=== PATIENT | male | born 1950 | race Caucasian/White ===

== ENCOUNTER 2017-09-27 09:43 | Inpatient (IN) | payer MEDICARE ==
[2017-09-27] VITALS (7 sets, daily range): BP systolic 102–153; BP diastolic 57–78; PULSE 64–98; RESP 16–20; TEMP 97.2–98.9; O2SAT 98–100
[~2017-09-27] VITALS: Ht 180.3 cm; Wt 96.2 kg
[2017-09-27] MEDS ORDERED: ENAL5TAB PO (10:15)
[2017-09-27] MEDS ORDERED: METF500T PO (10:15)
[2017-09-27] MEDS ORDERED: EXEN1INJ SQ (10:15)
[2017-09-27] MEDS ORDERED: CYMB30CA PO (10:15)
[2017-09-27] MEDS ORDERED: GABA600T PO (10:15)
[2017-09-27] MEDS ORDERED: ROSU1TAB4 PO (10:15)
[2017-09-27] MEDS ORDERED: ARTHRITIS MEDICATION (10:19)
[2017-09-27] MEDS ORDERED: CLIN300C5 PO (10:21)
[2017-09-27] MEDS ORDERED: CLINDAMYCIN INJ 900 MG in SODIUM CHLORIDE 0.9% INJ 100 ML IV ONE (11:15)
[2017-09-27] MEDS ORDERED: KETOROLAC TROMETHAMINE 30 MG/ML (IVP) VIAL IVP ONE (11:15)
--- NOTE | 2017-09-27 11:16 | PD ---
HPI Chief Complaint: Skin Problem Time Seen by Provider: 10:49 Travel History International Travel<30 days: No Contact w/Intl Traveler<30days: No Traveled to known affect area: No History of Present Illness HPI 67yo M with a significant past medical history of diabetes mellitus and neuropathy presents the ED with L greater toe wound and L foot wound. Pt states that about 2yrs prior he stepped on a nail. He went to his pipe roller, Dr. Colvin, who tried to treat it conservatively over time, but referred him to Dr. Lemon for further management. Dr. Lemon, diagnosed him with a hammer toe and treated it accordingly. Within the last two weeks the wound developed an infection and prescribed him Levaquin along with an open cast. He stopped using the Levaquin after several days of use due to adverse effects, such as headaches , nausea and fatigue. After stopping Levaquin, he started to have fevers (Tmax 102.6) and increasing swelling and erythema to his L foot. He called Dr. Lemon on Sunday for a new prescription but was told he would need to be seen before, so he went to his PCP who prescribed him Clindamycin and debrided some of the wound. He has been on Clindamycin for two days now, with some improvement of the wound and afebrile. However, his PCP instructed him to go to the ED for possible admission due to the severity of the infection. Currently, the pt reports tenderness of the LLE, lack of sensation and swelling. Denies any fevers , nausea, vomiting, fatigue, weakness, headaches. PFSH Past Medical History Arthritis: Yes High Cholesterol: Yes Diabetes: Yes Patient Takes Glucophage: Yes Hypertension: Yes Tetanus Vaccination: < 5 Years Influenza Vaccination: Yes Social History Alcohol Use: Yes (rare) Tobacco Use: No Substance Use: No Allergies-Medications (Allergen,Severity, Reaction): Coded Allergies: iodine (Verified Allergy, Intermediate, 09/27/17) got real sick levofloxacin (Verified Allergy, Intermediate, 09/27/17) severe headaches and fatigue with slight nausea sulfite (Verified Allergy, Intermediate, 09/27/17) nausea Reported Meds & Prescriptions Reported Meds & Active Scripts Active Reported Clindamycin (Clindamycin HCl) 300 Mg Cap 300 Mg PO Q6H [Arthritis Medication] Rosuvastatin (Rosuvastatin Calcium) 5 Mg Tab 5 Mg PO EVERY OTHER DAY Cymbalta DR (Duloxetine HCl) 30 Mg Capdr 30 Mg PO BID Gabapentin 600 Mg Tab 600 Mg PO TID Enalapril (Enalapril Maleate) 5 Mg Tab 5 Mg PO DAILY Metformin (Metformin HCl) 500 Mg Tab 500 Mg PO BIDPC Bydureon Pen Inj (Exenatide) 2 Mg Pfpen 2 Mg SQ Q7D Physical Exam Narrative GENERAL: well developed and well nourished male in no acute distress. Alert and oriented x3. SKIN: Warm and dry. HEAD: Atraumatic. Normocephalic. EYES: Pupils equal and round. No scleral icterus. No injection or drainage. ENT: No nasal bleeding or discharge. Mucous membranes pink and moist. NECK: Trachea midline. No JVD. CARDIOVASCULAR: Regular rate and rhythm. RESPIRATORY: No accessory muscle use. Clear to auscultation. Breath sounds equal bilaterally. MUSCULOSKELETAL: Extremities without clubbing, cyanosis, or edema. No obvious deformities. NEUROLOGICAL: Awake and alert. No obvious cranial nerve deficits. Motor grossly within normal limits. Five out of 5 muscle strength in the arms and legs. Normal speech. PSYCHIATRIC: Appropriate mood and affect; insight and judgment normal. EXTREMITIES: Grossly deformed left lower greater digit with a full thickness ulcer, with surrounding erythema that extends to middle of his foot. Warm to touch to his ankle. Pedal pulses palpable bilaterally. Sensation decreased bilaterally to his knees. Data Data Last Documented VS Vital Signs Date Time Temp Pulse Resp B/P (MAP) Pulse Ox O2 Delivery O2 Flow Rate FiO2 09/27/17 12:37 73 18 102/57 (72) 100 Room Air 09/27/17 10:27 98.3 Orders Orders Basic Metabolic Panel (Bmp) (09/27/17 11:12) Complete Blood Count With Diff (09/27/17 11:12) Blood Culture (09/27/17 11:12) Wound Culture And Gram Stain (09/27/17 11:12) Iv Access Insert/Monitor (09/27/17 11:12) Ketorolac Inj (Toradol Inj) (09/27/17 11:15) Clindamycin Inj (Cleocin Inj) (09/27/17 11:15) Toe (Min 2vws) (09/27/17 11:12) Admit To Inpatient (5/17/18 ) Vital Signs (Adult) Q4H (09/27/17 13:27) Activity Oob Ad Maria Elena (09/27/17 13:27) Diet 1800 Ada Cons Carb (09/27/17 Lunch) Sodium Chloride 0.9% Flush (Ns Flush) (09/27/17 21:00) Sodium Chloride 0.9% Flush (Ns Flush) (09/27/17 13:30) Vancomycin Consult Pharmacy (Vancomycin (09/27/17 13:30) Acetaminophen (Tylenol) (09/27/17 13:30) Acetamin-Hydrocod 325-5 Mg (Henderson 5-325 (09/27/17 13:30) Acetamin-Hydrocod 325-7.5 Mg (Henderson 7.5 (09/27/17 13:30) Basic Metabolic Panel (Bmp) (09/28/17 06:00) Consult Infectious Disease (09/27/17 ) Vancomycin Inj (Vancomycin Inj) (09/27/17 15:00) Enoxaparin Inj (Lovenox Inj) (09/27/17 13:30) Inpatient Certification (09/27/17 ) Bedside Glucose WISAM.CSUGAR (09/27/17 13:27) Blood Glucose Goal (Criteria) (09/27/17 13:27) Hypoglycemia 70 Mg/Dl Or < (09/27/17 13:27) Notify Dr: Other (09/27/17 13:27) Dextrose 50% In Hector (Vial) Inj (D50w (Vi (09/27/17 13:30) Glucagon Inj (Glucagon Inj) (09/27/17 13:30) Insulin Aspart Supplemtl Scale (Novolog (09/27/17 17:00) Consult Podiatry (09/27/17 ) Clindamycin Inj (Cleocin Inj) (09/27/17 21:00) Magnesium Hydroxide Liq (Milk Of Magnesi (09/27/17 13:45) Sennosides (Senokot) (09/27/17 13:45) Bisacodyl Supp (Dulcolax Supp) (09/27/17 13:45) Lactulose Liq (Lactulose Liq) (09/27/17 13:45) Admit Order (Ed Use Only) (09/27/17 14:03) Labs Laboratory Tests Test 09/27/17 11:25 White Blood Count 9.1 TH/MM3 Red Blood Count 3.90 MIL/MM3 Hemoglobin 11.4 GM/DL Hematocrit 33.7 % Mean Corpuscular Volume 86.3 FL Mean Corpuscular Hemoglobin 29.1 PG Mean Corpuscular Hemoglobin Concent 33.7 % Red Cell Distribution Width 15.0 % Platelet Count 293 TH/MM3 Mean Platelet Volume 8.8 FL Neutrophils (%) (Auto) 78.8 % Lymphocytes (%) (Auto) 11.4 % Monocytes (%) (Auto) 6.3 % Eosinophils (%) (Auto) 3.1 % Basophils (%) (Auto) 0.4 % Neutrophils # (Auto) 7.2 TH/MM3 Lymphocytes # (Auto) 1.0 TH/MM3 Monocytes # (Auto) 0.6 TH/MM3 Eosinophils # (Auto) 0.3 TH/MM3 Basophils # (Auto) 0.0 TH/MM3 CBC Comment DIFF FINAL Differential Comment Blood Urea Nitrogen 11 MG/DL Creatinine 0.72 MG/DL Random Glucose 186 MG/DL Calcium Level 8.4 MG/DL Sodium Level 136 MEQ/L Potassium Level 3.5 MEQ/L Chloride Level 97 MEQ/L Carbon Dioxide Level 26.5 MEQ/L Anion Gap 13 MEQ/L Estimat Glomerular Filtration Rate 110 ML/MIN [facility] Medical Decision Making Medical Screen Exam Complete: Yes Emergency Medical Condition: Yes David Sales MD September 27, 2017 11:16
--- NOTE | 2017-09-27 12:11 | RADRPT ---
EXAM DATE/TIME: 09/27/2017 11:47 [facility] COMPARISON: No previous studies available for comparison. INDICATIONS : Infection. Open ulcer left great toe after foot being in soft boot for hammer toe. MEDICAL HISTORY : Diabetes mellitus type II. Neuropathy. Pt. in soft boot for 5 weeks for hammer toe. SURGICAL HISTORY : Debridement left great toe. ENCOUNTER: Initial ACUITY: 4 - 6 days PAIN SCORE: 0/10 LOCATION: Left great toe. FINDINGS: There is a destructive lytic lesion involving the first distal phalanx with a large subcutaneous ulce r adjacent to it. The lytic lesion extends for approximately 1.1 cm on a sporadic calcifications with in the ulceration as well. CONCLUSION: Findings are characteristic of osteomyelitis first distal phalanx. Doe Fernandes MD on September 27, 2017 at 12:07 Board Certified Radiologist. This report was verified electronically.
[2017-09-27 12:13] LABS: AUTOMATED NEUTROPHIL # 7.2 TH/MM3 (1.8-7.7); BASOPHIL % 0.4 % (0.0-2.0); EOSINOPHIL # 0.3 TH/MM3 (0-0.4); EOSINOPHIL % 3.1 % (0.0-4.0); HEMATOCRIT 33.7 % (39.0-51.0); HEMOGLOBIN 11.4 GM/DL (13.0-17.0); LYMPH % 11.4 % (9.0-44.0); MEAN CELL VOLUME 86.3 FL (80.0-100.0); MEAN CORPUSCULAR HEMOGLOBIN 29.1 PG (27.0-34.0); MEAN CORPUSCULAR HGB CONC 33.7 % (32.0-36.0); MEAN PLATELET VOLUME 8.8 FL (7.0-11.0); MONO % 6.3 % (0.0-8.0); MONOCYTE # 0.6 TH/MM3 (0-0.9); NEUT % 78.8 % (16.0-70.0); PLATELET COUNT 293 TH/MM3 (150-450); WHITE BLOOD COUNT 9.1 TH/MM3 (4.0-11.0)
[2017-09-27 12:58] LABS: BICARBONATE 26.5 MEQ/L (21.0-32.0); CALCIUM 8.4 MG/DL (8.5-10.1); CREATININE 0.72 MG/DL (0.60-1.30)
[2017-09-27] MEDS ORDERED: Vancomycin Consult Pharmacy 1 EA OTHER SCH (13:30)
[2017-09-27] MEDS ORDERED: ACETAMINOPHEN 500 MG CPLT PO PRN (13:30)
[2017-09-27] MEDS ORDERED: ACETAMINOPHEN/HYDROcodone 325 MG/7.5 MG TAB PO PRN (13:30)
[2017-09-27] MEDS ORDERED: GLUCAGON 1 MG/ML VIAL OTHER PRN (13:30)
[2017-09-27] MEDS ORDERED: SODIUM CHLORIDE 0.9% FLUSH 10 ML FLUSH IV FLUSH PRN (13:30)
[2017-09-27] MEDS ORDERED: DEXTROSE 50% IN WATER 50 ML VIAL(D50) IV PUSH PRN (13:30)
[2017-09-27] MEDS ORDERED: SENNOSIDES 8.6 MG TAB PO PRN (13:45)
[2017-09-27] MEDS ORDERED: LACTULOSE SYRUP 20 GM/30 ML CUP PO PRN (13:45)
[2017-09-27] MEDS ORDERED: MAGNESIUM HYDROXIDE SUSP 30 ML CUP PO PRN (13:45)
[2017-09-27] MEDS ORDERED: BISACODYL 10 MG SUPP RECTAL PRN (13:45)
--- NOTE | 2017-09-27 14:38 | HHI.HP ---
[facility] Service [facility] Primary Care Physician Jesus Massey M.D. Admission Diagnosis left great toe osteomyelitis, diabetes mellitius Diagnoses: Chief Complaint: left toe swelling, redness, and drainage Travel History International Travel<30 Days: No Contact w/Intl Traveler <30 Da: No Traveled to Known Affected Are: No History of Present Illness 67 year old white mail with a history of type 2 diabetes mellitus with neuropathy, hypertension who presents to the emergency room with worsening left toe swelling redness along with some yellowish malodorous drainage over the past 48 hours despite seeing his primary care physician and having a debridement. He states that he first injured his left toe over 2 years ago in which he stepped on a nail and was seen by Dr. Colvin. At that point, his left toe wound was being managed by podiatry and a referral was given to Dr. Lemon. Dr. Lemno had debrided the area and 14 weeks ago had placed the left foot in an open cast and ordered special insoles for him. 2 weeks ago the left toe became red and swollen with it being infected with further debridement needed. He was placed on Levaquin last however had side effects of headache nausea and fatigue and therefore stopped taking the medication. When he attempted to contact Dr. Lemon, he was requested to see him again prior to be given another oral antibiotics. He at that point went to see his primary care physician Dr. Massey however had one of his partners Dr. Dumont saw him and he was given oral clindamycin and a IM injection of an antibiotic. When he had continued drainage fevers and chills he came into the emergency room today for further evaluation. He denies any other trauma to the area. Review of Systems Constitutional: COMPLAINS OF: Fatigue, Fever, Chills, DENIES: Change in appetite Endocrine: DENIES: Heat/cold intolerance Eyes: DENIES: Blurred vision, Eye pain, Vision loss Ears, nose, mouth, throat: DENIES: Hearing loss, Nasal discharge, Throat pain, Ear Pain, Sinus Pain Respiratory: DENIES: Cough, Shortness of breath Cardiovascular: DENIES: Chest pain, Palpitations, Dyspnea on Exertion, Lower Extremity Edema Gastrointestinal: COMPLAINS OF: Constipation (Chronic ), DENIES: Abdominal pain , Black stools, Bloody stools, Diarrhea, Nausea, Vomiting Musculoskeletal: DENIES: Joint pain, Muscle aches, Stiffness Integumentary: COMPLAINS OF: Rash Hematologic/lymphatic: DENIES: Bruising, Lymphadenopathy Immunologic/allergic: DENIES: Eczema Neurologic: DENIES: Headache, Localized weakness, Paresthesias Psychiatric: DENIES: Anxiety, Depression, Suicidal Ideation Drainage and redness and swelling as described in HPI of the left toe Past Family Social History Past Medical History Diabetes mellitus Hypertension Hyperlipidemia Past Surgical History Right knee arthroscopic surgery left wrist surgery for fracture Reported Medications Clindamycin (Clindamycin HCl) 300 Mg Cap 300 Mg PO Q6H Rosuvastatin (Rosuvastatin Calcium) 5 Mg Tab 5 Mg PO EVERY OTHER DAY Cymbalta DR (Duloxetine HCl) 30 Mg Capdr 30 Mg PO BID Gabapentin 600 Mg Tab 600 Mg PO TID Enalapril (Enalapril Maleate) 5 Mg Tab 5 Mg PO DAILY Metformin (Metformin HCl) 500 Mg Tab 500 Mg PO BIDPC Bydureon Pen Inj (Exenatide) 2 Mg Pfpen 2 Mg SQ Q7D Allergies: Coded Allergies: iodine (Verified Allergy, Intermediate, 09/27/17) got real sick levofloxacin (Verified Allergy, Intermediate, 09/27/17) severe headaches and fatigue with slight nausea sulfite (Verified Allergy, Intermediate, 09/27/17) nausea Family History Mother had diabetes Father in the 90s of pneumonia Social History Does not smoke cigarettes or drink alcohol Physical Exam Vital Signs Vital Signs Date Time Temp Pulse Resp B/P (MAP) Pulse Ox O2 Delivery O2 Flow Rate FiO2 09/27/17 12:37 73 18 102/57 (72) 100 Room Air 09/27/17 10:27 98.3 77 18 139/71 (93) 100 Room Air 09/27/17 10:19 18 09/27/17 09:52 98.9 83 16 153/74 (100) 99 Physical Exam GENERAL: This is a well-nourished, well-developed patient, in no apparent distress. SKIN: Left dorsum of the foot with erythema and swelling and induration. Left distal toe with open wound with debrided infected tissue with yellowish and red drainage HEAD: Atraumatic. Normocephalic. No temporal or scalp tenderness. EYES: Pupils equal round and reactive. Extraocular motions intact. No scleral icterus. No injection or drainage. ENT: Nose without bleeding, purulent drainage or septal hematoma. Throat without erythema, tonsillar hypertrophy or exudate. Uvula midline. Airway patent. NECK: Trachea midline. No JVD or lymphadenopathy. Supple, nontender, no meningeal signs. CARDIOVASCULAR: Regular rate and rhythm without murmurs, gallops, or rubs. 2+ peripheral pulses in the left lower and right lower extremity, DP pulses RESPIRATORY: Clear to auscultation. Breath sounds equal bilaterally. No wheezes , rales, or rhonchi. GASTROINTESTINAL: Abdomen soft, non-tender, nondistended. No hepato-splenomegaly , or palpable masses. No guarding. Normoactive bowel sounds MUSCULOSKELETAL: Left great toe with significant swelling and induration with distal open wound with debrided infected skin with yellowish and red drainage. There is area of induration over the great toe radiating up towards the dorsum of the foot to the mid tarsal area NEUROLOGICAL: Awake and alert to person place time and situation. Cranial nerves II through XII intact. Motor and sensory grossly within normal limits. Five out of 5 muscle strength in all muscle groups. Normal speech. Laboratory Laboratory Tests Test 09/27/17 11:25 White Blood Count 9.1 Red Blood Count 3.90 Hemoglobin 11.4 Hematocrit 33.7 Mean Corpuscular Volume 86.3 Mean Corpuscular Hemoglobin 29.1 Mean Corpuscular Hemoglobin Concent 33.7 Red Cell Distribution Width 15.0 Platelet Count 293 Mean Platelet Volume 8.8 Neutrophils (%) (Auto) 78.8 Lymphocytes (%) (Auto) 11.4 Monocytes (%) (Auto) 6.3 Eosinophils (%) (Auto) 3.1 Basophils (%) (Auto) 0.4 Neutrophils # (Auto) 7.2 Lymphocytes # (Auto) 1.0 Monocytes # (Auto) 0.6 Eosinophils # (Auto) 0.3 Basophils # (Auto) 0.0 CBC Comment DIFF FINAL Differential Comment Blood Urea Nitrogen 11 Creatinine 0.72 Random Glucose 186 Calcium Level 8.4 Sodium Level 136 Potassium Level 3.5 Chloride Level 97 Carbon Dioxide Level 26.5 Anion Gap 13 Estimat Glomerular Filtration Rate 110 Date/Time Source Procedure Growth Status 09/27/17 11:25 Blood Peripheral Aerobic Blood Culture Pending Received 09/27/17 11:25 Blood Peripheral Anaerobic Blood Culture Pending Received 09/27/17 11:30 Wound Toe Gram Stain Pending Received 09/27/17 11:30 Wound Toe Wound Culture Pending Received Result Diagram: 09/27/17 1125 09/27/17 1125 Imaging Last Impressions Toe X-Ray 09/27/17 1112 Signed Impressions: Service Date/Time: September 11:47 - CONCLUSION: Findings are characteristic of osteomyelitis first distal phalanx. KMD Ivonne Jara VTE Risk Assessment Ivonne VTE Risk Assessment: Mod/High Risk (score >= 2) Caprini Risk Assessment Model Point Value = 1 Point Value = 2 Point Value = 3 Point Value = 5 Age 41-60 Minor surgery BMI > 25 kg/m2 Swollen legs Varicose veins or History of unexplained or recurrent spontaneous Oral contraceptives or hormone replacement Sepsis (< 1 month) Serious lung disease, including pneumonia (< 1 month) Abnormal pulmonary function Acute myocardial infarction Congestive heart failure (< 1 month) History of inflammatory bowel disease Medical patient at bed rest Age 61-74 Arthroscopic surgery Major open surgery (> 45 min) Laparoscopic surgery (> 45 min) Malignancy Confined to bed (> 72 hours) Immobilizing plaster cast Central venous access Age >= 75 History of VTE Family history of VTE Factor V Leiden Prothrombin [id number] Lupus anticoagulant Anticardiolipin antibodies Elevated serum homocysteine Heparin-induced thrombocytopenia Other congenital or acquired thrombophilia Stroke (< 1 month) Elective arthroplasty Hip, pelvis, or leg fracture Acute spinal cord injury (< 1 month) Prophylaxis Regimen Total Risk Factor Score Risk Level Prophylaxis Regimen 0-1 Low Early ambulation 2 Moderate Order ONE of the following: *Sequential Compression Device (SCD) *Heparin 5000 units SQ BID 3-4 Higher Order ONE of the following medications: *Heparin 5000 units SQ TID *Enoxaparin/Lovenox 40 mg SQ daily (WT < 150 kg, CrCl > 30 mL/min) *Enoxaparin/Lovenox 30 mg SQ daily (WT < 150 kg, CrCl > 10-29 mL/min) *Enoxaparin/Lovenox 30 mg SQ BID (WT < 150 kg, CrCl > 30 mL/min) AND/OR *Sequential Compression Device (SCD) 5 or more Highest Order ONE of the following medications: *Heparin 5000 units SQ TID (Preferred with Epidurals) *Enoxaparin/Lovenox 40 mg SQ daily (WT < 150 kg, CrCl > 30 mL/min) *Enoxaparin/Lovenox 30 mg SQ daily (WT < 150 kg, CrCl > 10-29 mL/min) *Enoxaparin/Lovenox 30 mg SQ BID (WT < 150 kg, CrCl > 30 mL/min) AND *Sequential Compression Device (SCD) Assessment and Plan Assessment and Plan 1. Left great toe osteomyelitis with infected wound -continue with IV clindamycin and vancomycin, consult podiatry for further evaluation for surgical intervention. Consult infectious disease for further recommendations. Await final wound culture and blood cultures. Pain medication as needed. 2. Diabetic mellitus type II -continue with Accu-Cheks with sliding scale insulin 3. Diabetic neuropathy- continue with gabapentin 4. Chronic hypertension, essential continue with home antihypertensives. 5.DVT prophylaxis - Lovenox Physician Certification 2 Midnight Certification Type: Admission for Inpatient Services Order for Inpatient Services The services are ordered in accordance with Medicare regulations or non- Medicare payer requirements, as applicable. In the case of services not specified as inpatient-only, they are appropriately provided as inpatient services in accordance with the 2-midnight benchmark. Estimated LOS (days): 3 days is the estimated time the patient will need to remain in the hospital, assuming treatment plan goals are met and no additional complications. Post-Hospital Plan: Home Health Vaishali Jung MD September 27, 2017 14:38
[2017-09-27] MEDS: ENOXAPARIN SODIUM 40 MG/0.4 ML SYRINGE SQ SCH (14:45)
[2017-09-27] MEDS ORDERED: ENALAPRILAT 1.25 MG/ML VIAL IV PUSH PRN (14:45)
[2017-09-27] MEDS ORDERED: VANCOMYCIN INJ 1,000 MG in SODIUM CHLOR 0.9% 250 ML INJ 250 ML IV SCH (15:00)
[2017-09-27] MEDS: VANCOMYCIN INJ 1,500 MG in SODIUM CHLORID 0.9% 500 ML INJ 500 ML IV SCH (16:07)
[2017-09-27] MEDS: INSULIN ASPART SUPPLEMENTAL SCALE SQ SCH ×2 (17:00→21:00)
[2017-09-27] MEDS: GABAPENTIN 300 MG CAP PO SCH (17:34)
[2017-09-27] MEDS: metFORMIN HCL 500 MG TAB PO SCH (17:34)
[2017-09-27] MEDS: SODIUM CHLORIDE 0.9% FLUSH 10 ML FLUSH IV FLUSH SCH (20:31)
[2017-09-27] MEDS: CLINDAMYCIN 600 MG/NS PREMIX 50 ML IV SCH (20:31)
--- NOTE | 2017-09-27 21:22 | MB ---
cc: Qamar Delgado DPM DATE: 09/27/2017 REASON FOR CONSULTATION: Left hallux ulcer, osteomyelitis. HISTORY OF PRESENT ILLNESS: This is a 67-year-old male who has a history of seeing my associate, Dr. Colvin. It apparently started after he stepped on a nail. There were issues healing the wound. The patient was then referred to Dr. Alli Lemon, who has been debriding the area and applying a total contact cast for the greater part of 14 weeks. The patient then noticed 2 weeks ago that the left foot became hot and swollen. He went and saw his primary care doctor who performed a debridement and gave the patient antibiotics. On evaluating him 1-2 days later, there was significant worsening and he was told to go to the hospital. Currently, I am seeing the patient bedside. He says there is much improvement since receiving IV antibiotics. PAST MEDICAL HISTORY: Positive for diabetes, hypertension, hyperlipidemia. PAST SURGICAL HISTORY: Right knee arthroscopic surgery, left wrist surgery for fracture. REPORTED MEDICATIONS: 1. Clindamycin 2. Rosuvastatin. 3. Cymbalta. 4. Gabapentin. 5. Enalapril. 6. Metformin 7. Bydureon pen injection. ____ ALLERGIES: IODINE, LEVAQUIN, ____ FAMILY HISTORY: Mother had diabetes. Father in with pneumonia. SOCIAL HISTORY: He does not smoke. He does not drink. PHYSICAL EXAMINATION: VITAL SIGNS: Temperature 97.2, pulse rate 64, respiratory rate 18, blood pressure 130/78. He is satting 99% on room air. GENERAL: This is an alert and oriented gentleman seen bedside exhibiting nonlabored respirations. EXTREMITIES: Left lower extremity is examined. There is noted to be tissue loss with focal necrosis of the periulcer area of the distal hallux coursing to the plantar hallux. There is redness encompassing the entire hallux. There is mild odor. There is a distal fluctuant probing down to the distal aspect of the proximal phalanx. Pedal pulses are palpable. Sensation is decreased to light touch. Right lower extremity: There is noted to be superficial callus over the digits; however, no open lesions. Bilateral lower extremity significant loss of sensation below the knees. LABORATORY FINDINGS: White blood cell 9, hemoglobin and hematocrit, 11/33, platelet count 293. Chem-7: Sodium 136, potassium 3.5, chloride 97, CO2 of 26.5, BUN is 11, creatinine 0.72, random glucose 186. Microbial findings: A blood culture and Gram stain ordered and pending. IMAGING FINDINGS: X-rays correlate with distal tuft erosion of the distal phalanx characteristic of osteomyelitis of the hallux. MRI ordered. Lower extremity arterial Doppler with TBI ordered. ASSESSMENT AND PLAN: Left diabetic foot infection with likely osteomyelitis encompassing the distal hallux. My recommendation is MRI to determine the extent of bone edema characteristic of osteomyelitis. If multiple bones are involved within the hallux, my recommendation is amputation once vascular status verified and possible vascular consult before proceeding. The patient is highly hesitant to move forward with any kind of amputation for fear of needing more amputation of the foot. I educated the patient on the possible progression of osteomyelitis and that at minimum, a partial hallux amputation is likely indicated at this point. I will advise further pending blood results, ESR circulation study, as well as MRI. No plans for intervention within the next 24 hours. DIANA Mueller//candido , 07:27 PM , 08:09 PM
[2017-09-27] MEDS: DULoxetine HCl DR 30 MG CAP PO SCH (22:06)
--- NOTE | 2017-09-27 23:04 | RADRPT ---
EXAM DATE/TIME: 09/27/2017 22:33 [facility] COMPARISON: No previous studies available for comparison. INDICATIONS : Penile implant, MRI clearance. MEDICAL HISTORY : Diabetes mellitus type II. Neuropathy. SURGICAL HISTORY : Debridement left great toe. Penile implant. ENCOUNTER: Initial ACUITY: 1 day PAIN SCORE: 0/10 LOCATION: abdomen. FINDINGS: Supine view of the abdomen was performed. The abdominal bowel gas pattern is normal. No abnormal ma sses, calcifications, or organomegaly is seen. The osseous structures are unremarkable. Non-feromagn etic penile implants noted. CONCLUSION: Non-ferromagnetic penile implant. Alcon Gallagher Jr., MD on September 27, 2017 at 22:59 Board Certified Radiologist. This report was verified electronically.
[2017-09-28 00:59] VITALS: BP 153/77; PULSE 99; RESP 20; TEMP 97; O2SAT 99
[2017-09-28] MEDS: VANCOMYCIN INJ 1,500 MG in SODIUM CHLORID 0.9% 500 ML INJ 500 ML IV SCH ×2 (04:45→16:16)
[2017-09-28] MEDS: CLINDAMYCIN 600 MG/NS PREMIX 50 ML IV SCH ×2 (04:46→12:29)
[2017-09-28 04:59] VITALS: BP 140/69; PULSE 79; RESP 20; TEMP 98.3; O2SAT 95
[2017-09-28 07:03] LABS: BICARBONATE 30.2 MEQ/L (21.0-32.0); CALCIUM 8.4 MG/DL (8.5-10.1); CREATININE 0.86 MG/DL (0.60-1.30)
[2017-09-28] MEDS: INSULIN ASPART SUPPLEMENTAL SCALE SQ SCH ×4 (07:42→20:16)
[2017-09-28] MEDS: SODIUM CHLORIDE 0.9% FLUSH 10 ML FLUSH IV FLUSH SCH ×2 (07:44→20:15)
[2017-09-28 08:00] VITALS: BP 123/69; PULSE 70; RESP 14; TEMP 98.3; O2SAT 98
[2017-09-28] MEDS ORDERED: GADODIAMIDE PF 287 MG/ML 20 ML VIAL (for RAD MRI) IVCONTRAST ONE (08:42)
[2017-09-28] MEDS: GABAPENTIN 300 MG CAP PO SCH ×3 (09:00→17:14)
[2017-09-28] MEDS: DULoxetine HCl DR 30 MG CAP PO SCH ×2 (09:00→20:14)
[2017-09-28] MEDS: metFORMIN HCL 500 MG TAB PO SCH ×2 (09:01→17:14)
[2017-09-28] MEDS: ENALAPRIL MALEATE 5 MG TAB PO SCH (09:01)
[2017-09-28] MEDS ORDERED: INFLUENZA VIRUS VACCINE (QUADRIVALENT) 0.5 ML SYR IM ONE (10:00)
[2017-09-28] MEDS ORDERED: PNEUMOCOCCAL POLYVALENT INJ 25 MCG/0.5 ML SYR IM ONE (10:00)
--- NOTE | 2017-09-28 10:02 | RADRPT ---
EXAM DATE/TIME: 09/28/2017 08:09 [facility] COMPARISON: No previous studies available for comparison. INDICATIONS : Wound on left great toe with pain. CONTRAST: 19 cc Omniscan (gadodiamide) IV MEDICAL HISTORY : Diabetes mellitus type 2. Hypertension. Hypercholesterolemia. SURGICAL HISTORY : right knee sx, left wrist sx, penile implant ENCOUNTER: Subsequent ACUITY: 1 week PAIN SCORE: 0/10 LOCATION: Left foot TECHNIQUE: Multiplanar, multisequence MRI examination was performed without contrast and after the intravenous a dministration of gadolinium. FINDINGS: The inversion recovery images demonstrate fairly diffuse marrow edema throughout the distal phalanx o f the first digit. There is fairly diffuse contrast enhancement on the postcontrast T1 weighted image s. There is a probable draining sinus tract extending to the skin surface. There were punctate fluid collections associated with this in the deep subcutaneous tissues. In the appropriate clinical settin g, this would be concerning for osteomyelitis. There is no marrow edema within the proximal phalanx. The flexor and extensor tendons are intact. No other significant marrow edema is identified. No other significant fluid collections are identified. CONCLUSION: 1. The examination demonstrates abnormal marrow edema with marrow enhancement enhancement involving t he distal phalanx of the first digit. This is concerning for osteomyelitis. The proximal phalanx of t he first digit appears intact. Jameel Wong MD on September 28, 2017 at 9:54 Board Certified Radiologist. This report was verified electronically.
[2017-09-28 12:00] VITALS: BP 132/63; PULSE 72; RESP 18; TEMP 97.3; O2SAT 99
--- NOTE | 2017-09-28 13:01 | RADRPT ---
EXAM DATE/TIME: 09/27/2017 00:00 [place] COMPARISON: No previous studies available for comparison. INDICATIONS : Left Great Toe Osteomyelitis, Diabetes TECHNIQUE: Five-station segmental examination of the lower extremities was performed. Pulsed-cuff waveform tracings and pressures were recorded. Ankle-brachial indices and toe-brachial indices were calculated. PRESSURES (mmHg): Brachial (arm): Right IV SITE Left 118 Lower Thigh: Right 143 Left 124 Calf: Right 147 Left 143 Ankle: Right 146 Left 141 Toe: Right 69 Left 101 NAVI: Right 1.24 Left 1.19 TBI: Right 0.58 Left 0.86 PULSED CUFF WAVEFORMS: Demonstrate normal amplitude bilaterally. CONCLUSION: 1. ABIs approaching supernormal, particularly on the right. This may reflect diffusely calcified vess els which limits overall sensitivity of ankle-brachial indices. Consider CTA exam appears continued c linical concern. Santi Mosqueda MD on September 28, 2017 at 12:58 Board Certified Radiologist. This report was verified electronically.
--- NOTE | 2017-09-28 13:20 | PD.ID.CON ---
History of Present Illness Service Infectious disease Consult Requested By Hospitalist service Reason for Consult Left foot infection/osteo Primary Care Physician Jesus Massey M.D. Diagnoses: History of Present Illness Patient seen and examined on behalf of Dr. Helm This is a 67 year old white male with a PMHX of type 2 diabetes mellitus with neuropathy and hypertension who presented to the emergency room with worsening left toe swelling, redness along with some yellowish malodorous drainage over the past 48 hours despite seeing his primary care physician and having a debridement. Infectious disease has been consulted for evaluation and management of left great toe infection and concern for osteomyelitis. Patient seen and examined. He reports he first injured his left toe over 2 years ago when he stepped on a nail and was seen by Dr. Colvin. At that point, his left toe wound was being managed by podiatry and a referral was given to Dr. Lemon. Dr. Lemon had debrided the area and 14 weeks ago had placed the left foot in an open cast and ordered special insoles for him. 2 weeks ago the left toe became red and swollen and Dr. Lemon performed further debridement and placed the patient on Levaquin. Patient was only able to take 3 days of the Levaquin due to side effects of fatigue and headache. He contacted Dr. Lemon's office who scheduled him an appointment for today. Patient reports that he developed fever as high as 102 and chills with worsening of the left foot with increased drainage from the toe with associated edema and erythema. He at that point went to see his primary care physician Dr. Massey however had one of his partners Dr. Dumont saw him who performed a debridement and he was given oral clindamycin and a IM injection of an antibiotic. Patient states the toe and foot improved a minimal amount but he was contacted by his PCP's office who recommended he come into the ED. His wound culture + MRSA. Blood CX with no growth. MRI left foot concerning for osteomyelitis. Podiatry is following the patient and recommending surgical intervention. Patient has been afebrile. He does not have leukocytosis. ESR greater than 140. Patient is currently on IV Clindamycin and Vancomycin. (Nurys Lizama) Review of Systems Except as stated in HPI: all other systems reviewed are Neg (Nurys Lizama) Past Family Social History Allergies: Coded Allergies: iodine (Verified Allergy, Intermediate, 09/27/17) got real sick levofloxacin (Verified Allergy, Intermediate, 09/27/17) severe headaches and fatigue with slight nausea sulfite (Verified Allergy, Intermediate, 09/27/17) nausea Past Medical History Diabetes mellitus Hypertension Hyperlipidemia Past Surgical History Right knee arthroscopic surgery left wrist surgery for fracture Reported Medications Clindamycin (Clindamycin HCl) 300 Mg Cap 300 Mg PO Q6H [Arthritis Medication] Rosuvastatin (Rosuvastatin Calcium) 5 Mg Tab 5 Mg PO EVERY OTHER DAY Cymbalta DR (Duloxetine HCl) 30 Mg Capdr 30 Mg PO BID Gabapentin 600 Mg Tab 600 Mg PO TID Enalapril (Enalapril Maleate) 5 Mg Tab 5 Mg PO DAILY Metformin (Metformin HCl) 500 Mg Tab 500 Mg PO BIDPC Bydureon Pen Inj (Exenatide) 2 Mg Pfpen 2 Mg SQ Q7D Active Ordered Medications Current Medications Medications (Trade) Dose Ordered Sig/Ayad Route Start Time Stop Time Status Last Admin (NS Flush) 2 ml BID IV FLUSH 09/27/17 21:00 09/28/17 07:44 (NS Flush) 2 ml UNSCH PRN IV FLUSH 09/27/17 13:30 Pharmacy Profile Note 0 ml @ 0 mls/hr UNSCH OTHER 09/27/17 13:30 (Tylenol) 500 mg Q4H PRN PO 09/27/17 13:30 (Foley 5-325 Mg) 1 tab Q4H PRN PO 09/27/17 13:30 (Foley 7.5-325 Mg) 1 tab Q4H PRN PO 09/27/17 13:30 (Lovenox Inj) 40 mg Q24H SQ 09/27/17 15:00 09/27/17 14:45 (D50w (Vial) Inj) 50 ml UNSCH PRN IV PUSH 09/27/17 13:30 (Glucagon Inj) 1 mg UNSCH PRN OTHER 09/27/17 13:30 (NovoLOG SUPPLEMENTAL SCALE) 1 ACHS SLIDING SCALE SQ 09/27/17 17:00 Clindamycin/ Sodium Chloride 50 ml @ 100 mls/hr Q8H IV 09/27/17 21:00 09/28/17 12:29 (Milk Of Magnesia Liq) 30 ml Q12H PRN PO 5/17/18 13:45 (Senokot) 17.2 mg Q12H PRN PO 09/27/17 13:45 (Dulcolax Supp) 10 mg DAILY PRN RECTAL 09/27/17 13:45 (Lactulose Liq) 30 ml DAILY PRN PO 09/27/17 13:45 Vancomycin HCl 1500 mg/Sodium Chloride 515 ml @ 250 mls/hr Q12H IV 09/27/17 16:00 09/28/17 04:45 ([facility] Ordered Lab Info) SPECIFIC LAB TO BE DRAWN:VANCOMYCIN TROUGH DATE TO... ONCE ONCE .XX 09/29/17 03:45 09/29/17 03:46 (Cymbalta Dr) 30 mg BID PO 09/27/17 21:00 09/28/17 09:00 (Vasotec) 5 mg DAILY PO 09/28/17 09:00 09/28/17 09:01 (Neurontin) 600 mg TID PO 09/27/17 18:00 09/28/17 12:29 (Glucophage) 500 mg BIDPC PO 09/27/17 18:00 09/28/17 09:01 (Lipitor) 10 mg EVERY OTHER DAY PO 09/29/17 09:00 (Vasotec Inj) 1.25 mg Q6H PRN IV PUSH 09/27/17 14:45 Family History Mother had diabetes Father in the 90s of pneumonia Social History Patient denies any tobacco use, alcohol consumption or illicit drug use. (uNrys Lizama) Physical Exam Vital Signs Vital Signs Date Time Temp Pulse Resp B/P (MAP) Pulse Ox O2 Delivery O2 Flow Rate FiO2 09/28/17 12:00 97.3 72 18 132/63 (86) 99 09/28/17 08:00 98.3 70 14 123/69 (87) 98 09/28/17 04:59 98.3 79 20 140/69 (92) 95 09/28/17 00:59 97.0 99 20 153/77 (102) 99 09/27/17 20:55 98.0 98 20 116/65 (82) 99 09/27/17 16:10 97.2 64 18 130/78 (95) 99 09/27/17 15:17 70 16 114/59 (77) 98 09/27/17 15:13 70 16 114/59 (77) 98 Room Air Physical Exam GENERAL: This is a well-nourished, well-developed patient, in no apparent distress. Awake and alert. SKIN: No rashes, ecchymoses or lesions except for left great toe. Cool and dry. HEAD: Atraumatic. Normocephalic. No temporal or scalp tenderness. EYES: Pupils equal round and reactive. Extraocular motions intact. No scleral icterus. No injection or drainage. ENT: Nose without bleeding or purulent drainage. Throat without erythema, tonsillar hypertrophy or exudate. Uvula midline. Airway patent. NECK: Trachea midline. No JVD or lymphadenopathy. Supple, nontender, no meningeal signs. CARDIOVASCULAR: Regular rate and rhythm without murmurs, gallops, or rubs. RESPIRATORY: Clear to auscultation. Breath sounds equal bilaterally. No wheezes , rales, or rhonchi. GASTROINTESTINAL: Abdomen soft, non-tender, nondistended. No hepato-splenomegaly , or palpable masses. No guarding. MUSCULOSKELETAL: Extremities without clubbing or cyanosis. No joint tenderness, effusion, or edema noted. No calf tenderness. LLE with trace edema. Left great toe dressing removed, revealing extensive tissue loss with focal necrosis over the distal hallux with surrounding erythema extending over the entire left great toe. NEUROLOGICAL: Awake and alert. Cranial nerves II through XII grossly intact. Motor and sensory grossly within normal limits. No focal neurologic finding. Normal speech. PSYCHIATRIC: Calm and pleasant PIV with no e/o infection Laboratory Laboratory Tests Test 09/27/17 21:19 09/28/17 05:14 Erythrocyte Sedimentation Rate GREATER THAN 140 Blood Urea Nitrogen 11 Creatinine 0.86 Random Glucose 118 Calcium Level 8.4 Sodium Level 140 Potassium Level 3.8 Chloride Level 102 Carbon Dioxide Level 30.2 Anion Gap 8 Estimat Glomerular Filtration Rate 89 Date/Time Source Procedure Growth Status 09/27/17 11:25 Blood Peripheral Aerobic Blood Culture - Preliminary NO GROWTH IN 1 DAY Resulted 09/27/17 11:25 Blood Peripheral Anaerobic Blood Culture - Preliminary NO GROWTH IN 1 DAY Resulted 09/27/17 11:30 Wound Toe Gram Stain - Final Resulted 09/27/17 11:30 Wound Culture - Preliminary S. Aureus Mrsa Resulted (Nurys Lizama) Result Diagram: 09/27/17 1125 09/28/17 0514 Imaging Last Impressions Foot MRI 09/28/17 0000 Signed Impressions: Service Date/Time: Thursday, September 28, 2017 08:09 - CONCLUSION: 1. The examination demonstrates abnormal marrow edema with marrow enhancement enhancement involving the distal phalanx of the first digit. This is concerning for osteomyelitis. The proximal phalanx of the first digit appears intact. Jameel Wong MD Toe X-Ray 09/27/17 1112 Signed Impressions: Service Date/Time: September 11:47 - CONCLUSION: Findings are characteristic of osteomyelitis first distal phalanx. K. González Fernandes MD Abdomen X-Ray 09/27/17 0000 Signed Impressions: Service Date/Time: September 22:33 - CONCLUSION: Non-ferromagnetic penile implant. Alcon Gallagher Jr., MD (Nurys Lizama) Assessment and Plan Assessment and Plan Left foot cellulitis Left diabetic foot infection with suspected osteomyelitis of the distal hallux + MRSA -podiatry following -vascular sx consult pending DM Diabetic neuropathy HTN RECOMMENDATIONS: Discontinue Clindamycin Continue on IV Vancomycin Follow up on final wound culture results Follow up on vascular sx assessment/recommendations Will discuss further with Dr. Delgado Continue to monitor clinically Further recommendations to follow (Nurys Lizama) Assessment and Plan The exam, history, and the medical decision-making described in the above note were completed with the assistance of the mid-level provider. I reviewed and agree with the findings presented. I attest that I had a [id number] encounter with the patient on the same day, and personally performed and documented my assessment and findings in the medical record. Left foot great toe with ulceration and erythema and induration down to bone based on my examination Also had a callus on the fourth toe of the left foot Patient reports seeing primary care doctor as well as podiatry as outpatient. MRSA cellulitis MRSA left great toe osteomyelitis probable Diabetic neuropathy Recommendations Continue vancomycin IV Discontinue clindamycin IV as high risk for C. difficile Await podiatry recommendations Follow cultures Follow clinically Dr. Tesha Corbett covering for me this weekend. (Jenniffer Helm MD) Nurys Lizama September 28, 2017 13:20 Jenniffer Helm MD September 28, 2017 16:16
--- NOTE | 2017-09-28 13:51 | HHI.PR ---
Subjective Remarks 67 year old white mail with a history of type 2 diabetes mellitus with neuropathy, hypertension who presents to the emergency room with worsening left toe swelling redness along with some yellowish malodorous drainage over the past 48 hours despite seeing his primary care physician and having a debridement. He states that he first injured his left toe over 2 years ago in which he stepped on a nail and was seen by Dr. Colvin. At that point, his left toe wound was being managed by podiatry and a referral was given to Dr. Lemon. Dr. Lemon had debrided the area and 14 weeks ago had placed the left foot in an open cast and ordered special insoles for him. 2 weeks ago the left toe became red and swollen with it being infected with further debridement needed. He was placed on Levaquin last however had side effects of headache nausea and fatigue and therefore stopped taking the medication. When he attempted to contact Dr. Lemon, he was requested to see him again prior to be given another oral antibiotics. He at that point went to see his primary care physician Dr. Massey however had one of his partners Dr. Dumont saw him and he was given oral clindamycin and a IM injection of an antibiotic. When he had continued drainage fevers and chills he came into the emergency room today for further evaluation. He denies any other trauma to the area. 09-28 SEEN BY ID AND PODIATRY CONSULT VASCULAR SURGERY TO DETERMINE FLOW STATUS OF LEFT LEG FOR HEALING HAD MRI OF LEFT FOOT- OSTEOMYELITIS DW RN AND PT AND CM Objective Vitals Vital Signs Date Time Temp Pulse Resp B/P (MAP) Pulse Ox O2 Delivery O2 Flow Rate FiO2 09/28/17 12:00 97.3 72 18 132/63 (86) 99 09/28/17 08:00 98.3 70 14 123/69 (87) 98 09/28/17 04:59 98.3 79 20 140/69 (92) 95 09/28/17 00:59 97.0 99 20 153/77 (102) 99 09/27/17 20:55 98.0 98 20 116/65 (82) 99 09/27/17 16:10 97.2 64 18 130/78 (95) 99 09/27/17 15:17 70 16 114/59 (77) 98 09/27/17 15:13 70 16 114/59 (77) 98 Room Air I/O 09/27/17 09/27/17 09/27/17 09/28/17 09/28/17 09/28/17 07:00 15:00 23:00 07:00 15:00 23:00 Intake Total 80 ml Output Total 200 ml 1100 ml Balance -200 ml -1020 ml Intake Oral 80 ml Output Urine Total 200 ml 1100 ml # Voids 1 Result Diagram: 09/27/17 1125 09/28/17 0514 Other Results Laboratory Tests Test 09/27/17 11:25 09/27/17 21:19 09/28/17 05:14 White Blood Count 9.1 TH/MM3 Red Blood Count 3.90 MIL/MM3 Hemoglobin 11.4 GM/DL Hematocrit 33.7 % Mean Corpuscular Volume 86.3 FL Mean Corpuscular Hemoglobin 29.1 PG Mean Corpuscular Hemoglobin Concent 33.7 % Red Cell Distribution Width 15.0 % Platelet Count 293 TH/MM3 Mean Platelet Volume 8.8 FL Neutrophils (%) (Auto) 78.8 % Lymphocytes (%) (Auto) 11.4 % Monocytes (%) (Auto) 6.3 % Eosinophils (%) (Auto) 3.1 % Basophils (%) (Auto) 0.4 % Neutrophils # (Auto) 7.2 TH/MM3 Lymphocytes # (Auto) 1.0 TH/MM3 Monocytes # (Auto) 0.6 TH/MM3 Eosinophils # (Auto) 0.3 TH/MM3 Basophils # (Auto) 0.0 TH/MM3 CBC Comment DIFF FINAL Differential Comment Blood Urea Nitrogen 11 MG/DL 11 MG/DL Creatinine 0.72 MG/DL 0.86 MG/DL Random Glucose 186 MG/DL 118 MG/DL Calcium Level 8.4 MG/DL 8.4 MG/DL Sodium Level 136 MEQ/L 140 MEQ/L Potassium Level 3.5 MEQ/L 3.8 MEQ/L Chloride Level 97 MEQ/L 102 MEQ/L Carbon Dioxide Level 26.5 MEQ/L 30.2 MEQ/L Anion Gap 13 MEQ/L 8 MEQ/L Estimat Glomerular Filtration Rate 110 ML/MIN 89 ML/MIN Erythrocyte Sedimentation Rate GREATER THAN 140 mm/hr Imaging Last Impressions Foot MRI 09/28/17 0000 Signed Impressions: Service Date/Time: Thursday, September 28, 2017 08:09 - CONCLUSION: 1. The examination demonstrates abnormal marrow edema with marrow enhancement enhancement involving the distal phalanx of the first digit. This is concerning for osteomyelitis. The proximal phalanx of the first digit appears intact. Jameel Wong MD Toe X-Ray 09/27/17 1112 Signed Impressions: Service Date/Time: September 11:47 - CONCLUSION: Findings are characteristic of osteomyelitis first distal phalanx. Doe Fernandes MD Abdomen X-Ray 09/27/17 0000 Signed Impressions: Service Date/Time: September 22:33 - CONCLUSION: Non-ferromagnetic penile implant. Alcon Gallagher Jr., MD Objective Remarks GENERAL: Awake alert and oriented 3 talkative and cooperative SKIN: Warm and dry. Left foot is dressed HEAD: Atraumatic. Normocephalic. EYES: Pupils equal and round. No scleral icterus. No injection or drainage. Extraocular muscles intact ENT: No nasal bleeding or discharge. Mucous membranes pink and moist. Tongue is midline NECK: Trachea midline. No JVD. Supple CARDIOVASCULAR: Regular rate and rhythm. S1-S2 no S3 or S4 RESPIRATORY: No accessory muscle use. Clear to auscultation. Breath sounds equal bilaterally. GASTROINTESTINAL: Abdomen soft, non-tender, nondistended. Hepatic and splenic margins not palpable. MUSCULOSKELETAL: Extremities without clubbing, cyanosis, or edema. No obvious deformities. NEUROLOGICAL: Awake and alert. No obvious cranial nerve deficits. Motor grossly within normal limits. Five out of 5 muscle strength in the arms and legs. Normal speech. Left foot is dressed PSYCHIATRIC: Appropriate mood and affect; insight and judgment normal. Medications and IVs Current Medications Ketorolac Tromethamine (Toradol Inj) 30 mg ONCE ONCE IVP Last administered on 09/27/17at 11:35; Start 09/27/17 at 11:15; Stop 09/27/17 at 11:20; Status DC Clindamycin Phosphate 900 mg/ Sodium Chloride 106 ml @ 200 mls/hr ONCE ONCE IV Last administered on 09/27/17at 11:36; Start 09/27/17 at 11:15; Stop at 11:46; Status DC Sodium Chloride (NS Flush) 2 ml BID IV FLUSH Last administered on 09/28/17at 07: 44; Start 09/27/17 at 21:00 Sodium Chloride (NS Flush) 2 ml UNSCH PRN IV FLUSH FLUSH AFTER USING IV ACCESS ; Start 09/27/17 at 13:30 Pharmacy Profile Note 0 ml @ 0 mls/hr UNSCH OTHER ; Start 09/27/17 at 13:30 Acetaminophen (Tylenol) 500 mg Q4H PRN PO FEVER >101F; Start 09/27/17 at 13:30 Acetaminophen/ Hydrocodone Bitart (Valders 5-325 Mg) 1 tab Q4H PRN PO PAIN SCALE 1 TO 5; Start 09/27/17 at 13:30 Acetaminophen/ Hydrocodone Bitart (Val[place] 7.5-325 Mg) 1 tab Q4H PRN PO PAIN SCALE 6 TO 10; Start 09/27/17 at 13:30 Vancomycin HCl 1000 mg/Sodium Chloride 250 ml @ 250 mls/hr Q12H IV ; Start at 15:00; Status Cancel Enoxaparin Sodium (Lovenox Inj) 40 mg Q24H SQ Last administered on 09/27/17at 14 :45; Start 09/27/17 at 15:00 Dextrose (D50w (Vial) Inj) 50 ml UNSCH PRN IV PUSH HYPOGLYCEMIA-SEE COMMENTS; Start 09/27/17 at 13:30 Glucagon (Glucagon Inj) 1 mg UNSCH PRN OTHER HYPOGLYCEMIA-SEE COMMENTS; Start 09/27/17 at 13:30 Insulin Aspart (NovoLOG SUPPLEMENTAL SCALE) 1 ACHS SLIDING SCALE SQ ; Start at 17:00 Clindamycin/ Sodium Chloride 50 ml @ 100 mls/hr Q8H IV Last administered on at 12:29; Start 09/27/17 at 21:00 Magnesium Hydroxide (Milk Of Magnesia Liq) 30 ml Q12H PRN PO Mild constipation ; Start 09/27/17 at 13:45 Sennosides (Senokot) 17.2 mg Q12H PRN PO Moderate constipation; Start 09/27/17 at 13:45 Bisacodyl (Dulcolax Supp) 10 mg DAILY PRN RECTAL SEVERE CONSITIPATION; Start at 13:45 Lactulose (Lactulose Liq) 30 ml DAILY PRN PO SEVERE CONSITIPATION; Start at 13:45 Vancomycin HCl 1500 mg/Sodium Chloride 515 ml @ 250 mls/hr Q12H IV Last administered on 09/28/17at 04:45; Start 09/27/17 at 16:00 Miscellaneous Information ([facility] Ordered Lab Info) SPECIFIC LAB TO BE DRAWN:VANCOMYCIN TROUGH DATE TO... ONCE ONCE .XX ; Start 09/29/17 at 03:45; Stop 09/29/17 at 03:46 Duloxetine HCl (Cymbalta Dr) 30 mg BID PO Last administered on 09/28/17at 09:00 ; Start 09/27/17 at 21:00 Enalapril Maleate (Vasotec) 5 mg DAILY PO Last administered on 09/28/17at 09:01 ; Start 09/28/17 at 09:00 Gabapentin (Neurontin) 600 mg TID PO Last administered on 09/28/17at 12:29; Start 09/27/17 at 18:00 Metformin HCl (Glucophage) 500 mg BIDPC PO Last administered on 09/28/17at 09:01 ; Start 09/27/17 at 18:00 Atorvastatin Calcium (Lipitor) 10 mg EVERY OTHER DAY PO ; Start 09/29/17 at 09: 00 Enalaprilat (Vasotec Inj) 1.25 mg Q6H PRN IV PUSH SBP> OR = 180, DBP> OR = 100 ; Start 09/27/17 at 14:45 Pneumococcal Polyvalent Vaccine (Pneumovax-23 Inj) 25 mcg ONCE ONCE IM ; Start 09/28/17 at 10:00; Stop 09/28/17 at 10:01; Status DC Influenza Virus Vaccine (Flu (Quadrivalent) Vaccine Inj) 0.5 ml ONCE ONCE IM ; Start 09/28/17 at 10:00; Stop 09/28/17 at 10:01; Status DC Gadodiamide (Omniscan Pf Inj) 19 ml STK-MED ONCE IVCONTRAST Last administered on 09/28/17at 08:42; Start 09/28/17 at 08:42; Stop 09/28/17 at 08:43; Status DC A/P Assessment and Plan 1. Left great toe osteomyelitis with infected wound -continue with IV clindamycin and vancomycin, consult podiatry for further evaluation for surgical intervention. Consult infectious disease for further recommendations. Await final wound culture and blood cultures. Pain medication as needed.-- Consult of infectious disease-- medication have been adjusted Consult vascular surgery Has been seen by podiatry 2. Diabetic mellitus type II -continue with Accu-Cheks with sliding scale insulin 3. Diabetic neuropathy- continue with gabapentin 4. Chronic hypertension, essential continue with home antihypertensives. 5.DVT prophylaxis - Lovenox Pain control on medications for constipation Discharge Planning Pending clearance by podiatry and infectious disease and vascular surgery Shawn Murcia DO September 28, 2017 13:51
[2017-09-28 16:00] VITALS: BP 138/75; PULSE 74; RESP 18; TEMP 98.2; O2SAT 99
[2017-09-28] MEDS: ENOXAPARIN SODIUM 40 MG/0.4 ML SYRINGE SQ SCH (16:16)
--- NOTE | 2017-09-28 18:03 | PD.POD ---
Subjective Pain score: 2 Remarks Foot swelling has improved patient seen bedside with and also seen with vascular surgery Past Med/Surg/Social History Social History Smoking Status: Never Smoker Objective Vital Signs Vital Signs Date Time Temp Pulse Resp B/P (MAP) Pulse Ox O2 Delivery O2 Flow Rate FiO2 09/28/17 16:00 98.2 74 18 138/75 (96) 99 09/28/17 12:00 97.3 72 18 132/63 (86) 99 09/28/17 08:00 98.3 70 14 123/69 (87) 98 09/28/17 04:59 98.3 79 20 140/69 (92) 95 09/28/17 00:59 97.0 99 20 153/77 (102) 99 09/27/17 20:55 98.0 98 20 116/65 (82) 99 Coded Allergies: iodine (Verified Allergy, Intermediate, 09/27/17) got real sick levofloxacin (Verified Allergy, Intermediate, 09/27/17) severe headaches and fatigue with slight nausea sulfite (Verified Allergy, Intermediate, 09/27/17) nausea Medications and IVs Administered Medications Medications (Trade) Dose Ordered Sig/Ayad Route PRN Reason Start Time Stop Time Status Last Admin Dose Admin Sodium Chloride (NS Flush) 2 ml BID IV FLUSH 09/27/17 21:00 09/28/17 07:44 Enoxaparin Sodium (Lovenox Inj) 40 mg Q24H SQ 09/27/17 15:00 09/28/17 16:16 Vancomycin HCl 1500 mg/Sodium Chloride 515 ml @ 250 mls/hr Q12H IV 09/27/17 16:00 09/28/17 16:16 Duloxetine HCl (Cymbalta Dr) 30 mg BID PO 09/27/17 21:00 09/28/17 09:00 Enalapril Maleate (Vasotec) 5 mg DAILY PO 09/28/17 09:00 09/28/17 09:01 Gabapentin (Neurontin) 600 mg TID PO 09/27/17 18:00 09/28/17 17:14 Metformin HCl (Glucophage) 500 mg BIDPC PO 09/27/17 18:00 09/28/17 17:14 Other Results Laboratory Tests Test 09/27/17 11:25 09/27/17 21:19 White Blood Count 9.1 TH/MM3 Red Blood Count 3.90 MIL/MM3 Hemoglobin 11.4 GM/DL Hematocrit 33.7 % Mean Corpuscular Volume 86.3 FL Mean Corpuscular Hemoglobin 29.1 PG Mean Corpuscular Hemoglobin Concent 33.7 % Red Cell Distribution Width 15.0 % Platelet Count 293 TH/MM3 Mean Platelet Volume 8.8 FL Neutrophils (%) (Auto) 78.8 % Lymphocytes (%) (Auto) 11.4 % Monocytes (%) (Auto) 6.3 % Eosinophils (%) (Auto) 3.1 % Basophils (%) (Auto) 0.4 % Neutrophils # (Auto) 7.2 TH/MM3 Lymphocytes # (Auto) 1.0 TH/MM3 Monocytes # (Auto) 0.6 TH/MM3 Eosinophils # (Auto) 0.3 TH/MM3 Basophils # (Auto) 0.0 TH/MM3 CBC Comment DIFF FINAL Differential Comment Erythrocyte Sedimentation Rate GREATER THAN 140 mm/hr Laboratory Tests Test 09/27/17 11:25 09/28/17 05:14 Blood Urea Nitrogen 11 MG/DL 11 MG/DL Creatinine 0.72 MG/DL 0.86 MG/DL Random Glucose 186 MG/DL 118 MG/DL Calcium Level 8.4 MG/DL 8.4 MG/DL Sodium Level 136 MEQ/L 140 MEQ/L Potassium Level 3.5 MEQ/L 3.8 MEQ/L Chloride Level 97 MEQ/L 102 MEQ/L Carbon Dioxide Level 26.5 MEQ/L 30.2 MEQ/L Anion Gap 13 MEQ/L 8 MEQ/L Estimat Glomerular Filtration Rate 110 ML/MIN 89 ML/MIN Microbiology Date/Time Source Procedure Growth Status 09/27/17 11:25 Blood Peripheral Aerobic Blood Culture - Preliminary NO GROWTH IN 1 DAY Resulted 09/27/17 11:25 Blood Peripheral Anaerobic Blood Culture - Preliminary NO GROWTH IN 1 DAY Resulted 09/27/17 11:20 Blood Peripheral Aerobic Blood Culture - Preliminary NO GROWTH IN 1 DAY Resulted 09/27/17 11:20 Blood Peripheral Anaerobic Blood Culture - Preliminary NO GROWTH IN 1 DAY Resulted 09/27/17 11:30 Wound Toe Gram Stain - Final Resulted 09/27/17 11:30 Wound Culture - Preliminary S. Aureus Mrsa Resulted Last 72 hours Impressions Foot MRI 09/28/17 0000 Signed Impressions: Service Date/Time: Thursday, September 28, 2017 08:09 - CONCLUSION: 1. The examination demonstrates abnormal marrow edema with marrow enhancement enhancement involving the distal phalanx of the first digit. This is concerning for osteomyelitis. The proximal phalanx of the first digit appears intact. Jameel Wong MD Toe X-Ray 09/27/17 1112 Signed Impressions: Service Date/Time: September 11:47 - CONCLUSION: Findings are characteristic of osteomyelitis first distal phalanx. KMarciano Fernandes MD Abdomen X-Ray 09/27/17 0000 Signed Impressions: Service Date/Time: September 22:33 - CONCLUSION: Non-ferromagnetic penile implant. MD JESSICA Agustin Jr., DANIEL LELAND Signed EXAM DATE/TIME: 09/27/2017 00:00 [facility] COMPARISON: No previous studies available for comparison. INDICATIONS : Left Great Toe Osteomyelitis, Diabetes TECHNIQUE: Five-station segmental examination of the lower extremities was performed. Pulsed-cuff waveform tracings and pressures were recorded. Ankle-brachial indices and toe-brachial indices were calculated. PRESSURES (mmHg): Brachial (arm): Right IV SITE Left 118 Lower Thigh: Right 143 Left 124 Calf: Right 147 Left 143 Ankle: Right 146 Left 141 Toe: Right 69 Left 101 NAVI: Right 1.24 Left 1.19 TBI: Right 0.58 Left 0.86 PULSED CUFF WAVEFORMS: Demonstrate normal amplitude bilaterally. CONCLUSION: 1. ABIs approaching supernormal, particularly on the right. This may reflect diffusely calcified vessels which limits overall sensitivity of ankle-brachial indices. Consider CTA exam appears continued clinical concern. Physical Exam Nutritional status: normal Orientation: alert and oriented x3 Respiratory effort: FINDINGS: normal Details Left lower extremity, distal hallux with odor pus fibrotic ulcer redness appears to be localized to the hallux, foot is warm pulses are to be intact sensation decreased to light touch Assessment & Plan A/P Left hallux ulceration with osteomyelitis. Reviewed case with vascular surgery, clear to proceed with amputation to limit spread and source to prevent sepsis. Patient consented for left hallux great toe amputation risks and benefits explained including but not limited to poor healing delayed healing need for more surgery at a later date progressing to more debridement possible loss of foot or limb. No guarantees given or implied regarding the outcome patient ordered n.p.o. surgery planned for in Qamar Dong DPM September 28, 2017 18:03
--- NOTE | 2017-09-28 18:11 | PD.CAR.PN ---
CVT Progress Note Subjective/Hospital Course: 09/28/2017 Patient seen Full consult dictated Will follow Prateek Ervin Objective: Vital Signs Date Time Temp Pulse Resp B/P (MAP) Pulse Ox O2 Delivery O2 Flow Rate FiO2 09/28/17 16:00 98.2 74 18 138/75 (96) 99 09/28/17 12:00 97.3 72 18 132/63 (86) 99 09/28/17 08:00 98.3 70 14 123/69 (87) 98 09/28/17 04:59 98.3 79 20 140/69 (92) 95 09/28/17 00:59 97.0 99 20 153/77 (102) 99 09/27/17 20:55 98.0 98 20 116/65 (82) 99 Result Diagram: 09/27/17 1125 09/28/17 0514 Chuck Hawkins MD September 28, 2017 18:11
--- NOTE | 2017-09-28 18:41 | MB ---
cc: Chuck Hawkins MD DATE: 09/28/2017 REASON FOR CONSULTATION: Gangrene of the left toe, peripheral vascular disease, osteomyelitis, diabetes mellitus. HISTORY OF PRESENT ILLNESS: This 67-year-old gentleman stepped on a nail 2 years ago and was seen at that time by Dr. Colvin. The left toe wound was managed by podiatry, went to Dr. Lemon. He had some debridements of the left foot, which did well; however, 2 weeks ago, the patient comes back with a swollen left greater toe and osteomyelitis is diagnosed. The patient is now in the hospital for further care with recommendation of having a toe amputation by podiatry, hence the vascular consultation. PAST MEDICAL HISTORY: Hypertension, hyperlipidemia, longstanding diabetes mellitus. PAST SURGICAL HISTORY: Right knee arthroscopy, left wrist surgery. MEDICATIONS: Can be found in the record. SOCIAL HISTORY: The patient is a retired secondary school teacher. He does not smoke, does not drink. PHYSICAL EXAMINATION: GENERAL: Reveals an extremely pleasant, very cultured 67-year-old gentleman in no acute distress. HEENT: Normocephalic. No trauma to the head. Pupils are equal, reactive. Extraocular muscles intact. NECK: Supple. Bilateral carotid pulses. Faint right-sided bruit. CHEST: Clear bilateral breath sounds. HEART: Regular rate and rhythm. ABDOMEN: Soft. Active bowel sounds. No rebound, no guarding, no masses. Groins are normal. Pelvis is stable. EXTREMITIES: The patient has actually palpable femoral pulses bilateral and then strong dopplerable popliteal pulses, but weak palpable. Dorsalis pedis and posterior tibial on the right are palpable. On the left side, the patient has a dressing on, which I took off and I can feel the dorsalis pedis, but not posterior tibial. Feet are warm. The patient has clean skin with some loss of appendages but clearly no acute changes and barely any chronic changes in the skin. IMPRESSION AND RECOMMENDATIONS: I reviewed all the laboratory and diagnostic procedures. The patient indeed has a left greater toe gangrene and osteomyelitis and there is no question this needs to be resected. If not, the patient will proceed to develop either endocarditis or some sort of a problem with this, which may be fatal. Therefore, surgery is mandatory as soon as possible. As far as the rest of the patient's workup is concerned, his ABIs are somewhat concerning, however, with diabetes mellitus, the patient may have significant calcifications that are prohibitive of good NAVI readings. Therefore, I believe at this point, the patient will require a CTA with runoff and I believe it is also pineda to do a cardiac echo to make sure the patient has not seeded any of this infection to the heart. If the patient has any vascular changes that need to be addressed endovascularly or open, I will do so, but I believe at this point just from clinical exam, the patient will not need any of my help. I thank you very much for your referral. MD KAYLAH Sheth/ABIDA , 06:08 PM , 06:41 PM
--- NOTE | 2017-09-28 21:05 | RADRPT ---
EXAM DATE/TIME: 09/28/2017 19:46 [facility] COMPARISON: No previous studies available for comparison. INDICATIONS : Vascular workup. MEDICAL HISTORY : Hypercholesterolemia. Hypertension. Arthritis. Diabetes. SURGICAL HISTORY : Right knee repair. Left wrist reduction. ENCOUNTER: Initial ACUITY: 1 day PAIN SCORE: 0/10 LOCATION: Bilateral neck PEAK SYSTOLIC VELOCITIES (cm/sec): ICA/CCA RATIO: Right: 1.0 Left: 0.6 ICA: Right: 83.6 Left: 69.9 CCA: Right: 86.2 Left: 109.2 ECA: Right: 78.5 Left: 102.7 VERTEBRAL: Right: 63.3 antegrade Left: 72.1 antegrade Elevated flow velocities and ICA/CCA ratios have been found to correlate with increased degrees of vessel stenosis, calculated as percentage of diameter relative to a normal segment of distal ICA/CCA FINDINGS: RIGHT CAROTID: There is mild plaque at the carotid bulb regions. No significant stenosis is visualized. The wavefor ms are within normal limits. LEFT CAROTID: There is mild plaque at the carotid bulb regions. No significant stenosis is visualized. The wavefor ms are within normal limits. VERTEBRAL ARTERIES: Antegrade flow is seen in both vertebral arteries. MISCELLANEOUS: None. CONCLUSION: Mild plaque without significant stenosis. Silvano Tenorio MD on September 28, 2017 at 21:03 Board Certified Radiologist. This report was verified electronically.
[2017-09-28 21:40] VITALS: BP 142/73; PULSE 75; RESP 16; TEMP 98; O2SAT 96
[2017-09-28] MEDS ORDERED: CHLORHEXIDINE GLUCONATE 2 % 1 PACK (2 CLOTHS) TOPICAL PRN (22:30)
[2017-09-28] MEDS ORDERED: SODIUM CHLORID 0.9% 500 ML IV PRN (22:30)
[2017-09-28] MEDS ORDERED: METOPROLOL TARTRATE 25 MG TAB PO PRN (22:30)
[2017-09-28] MEDS ORDERED: LACTATED RINGER'S 1000 ML IV PRN (22:30)
[2017-09-29] VITALS (7 sets, daily range): BP systolic 129–163; BP diastolic 64–80; PULSE 64–76; RESP 16–20; TEMP 97.6–98.3; O2SAT 94–99
[2017-09-29] MEDS ORDERED: PHARMACY ORDERED LAB ONE ×2 (03:45→15:45)
[2017-09-29] MEDS: VANCOMYCIN INJ 1,500 MG in SODIUM CHLORID 0.9% 500 ML INJ 500 ML IV SCH ×2 (04:03→16:28)
[2017-09-29] MEDS ORDERED: BUPIVACAINE HCL PF 0.25% 30 ML VIAL ONE (07:04)
[2017-09-29] MEDS ORDERED: NEOMYCIN/POLYMYXIN 1 ML G.U. IRRIGANT ONE (07:07)
[2017-09-29] MEDS: INSULIN ASPART SUPPLEMENTAL SCALE SQ SCH ×4 (07:45→21:56)
[2017-09-29 08:03] LABS: AUTOMATED NEUTROPHIL # 4.8 TH/MM3 (1.8-7.7); BASOPHIL % 0.7 % (0.0-2.0); EOSINOPHIL # 0.2 TH/MM3 (0-0.4); EOSINOPHIL % 3.5 % (0.0-4.0); HEMATOCRIT 32.8 % (39.0-51.0); HEMOGLOBIN 11.2 GM/DL (13.0-17.0); LYMPH % 19.2 % (9.0-44.0); LYMPHOCYTE # 1.3 TH/MM3 (1.0-4.8); MEAN CELL VOLUME 85.8 FL (80.0-100.0); MEAN CORPUSCULAR HEMOGLOBIN 29.2 PG (27.0-34.0); MEAN CORPUSCULAR HGB CONC 34.1 % (32.0-36.0); MEAN PLATELET VOLUME 8.5 FL (7.0-11.0); MONO % 7.4 % (0.0-8.0); MONOCYTE # 0.5 TH/MM3 (0-0.9); NEUT % 69.2 % (16.0-70.0); PLATELET COUNT 272 TH/MM3 (150-450); RED BLOOD COUNT 3.82 MIL/MM3 (4.50-5.90); RED CELL DISTRIBUTION WIDTH 14.5 % (11.6-17.2); WHITE BLOOD COUNT 6.9 TH/MM3 (4.0-11.0)
[2017-09-29 08:25] LABS: ALBUMIN 2.9 GM/DL (3.4-5.0); ALT (GPT) 18 U/L (12-78); AST (GOT) 10 U/L (15-37); BLOOD UREA NITROGEN 11 MG/DL (7-18); CALCIUM 8.4 MG/DL (8.5-10.1); CHLORIDE 103 MEQ/L (98-107); CREATININE 0.67 MG/DL (0.60-1.30); GLOMERULAR FILTRATION RATE 119 ML/MIN (>89); GLUCOSE,RANDOM 121 MG/DL (74-106); MAGNESIUM 2.1 MG/DL (1.5-2.5); PHOSPHORUS 4.3 MG/DL (2.5-4.9); SODIUM (NA) 140 MEQ/L (136-145)
[2017-09-29 08:33] LABS: ALKALINE PHOSPHATASE 67 U/L (45-117); FREE T4 0.98 NG/DL (0.76-1.46); TOTAL BILIRUBIN ADULT 0.3 MG/DL (0.2-1.0); TOTAL PROTEIN 7.2 GM/DL (6.4-8.2)
--- NOTE | 2017-09-29 08:48 | HHI.PR ---
Immediate Post Op Note Procedure Date: September 29, 2017 Pre Op Diagnosis: Left hallux OM with ulcer digit contracture hammertoe Post Op Diagnosis: same Surgeon: Qamar Hardin Citrus Picker(s): scrub Procedure: Left hallux amputation Findings: clinically clear margins at 1st Met head Complications: none Specimen(s) removed: left hallux for path and deep cx at amputation for micro Estimated blood loss: less than 10mL Anesthesia: General Drains: Tremaine Tourniquet time (min at mmHg) 20 min 250 mmhg left ankle Patient to: PACU Patient Condition: Good Implant/Devices: SEE IMPLANT LOG (if applicable) Date/Time of Procedure: SEE SURGICAL CARE RECORD Qamar HardinM September 29, 2017 08:48
[2017-09-29] MEDS ORDERED: MIDAZOLAM HCL 2 MG/2 ML VIAL ONE (08:54)
[2017-09-29] MEDS ORDERED: *morphine SULFATE 4 MG/ML PERIprocedure ONLY ONE (09:02)
--- NOTE | 2017-09-29 09:10 | MP ---
cc: Qamar Delgado DPM DATE OF OPERATION: 09/29/2017 PREOPERATIVE DIAGNOSES: Left hallux ulcer, osteomyelitis, hammertoe contracture. POSTOPERATIVE DIAGNOSES: Left hallux ulcer, osteomyelitis, hammertoe contracture. PROCEDURE PERFORMED: Left hallux amputation. FINDINGS: Clinically clear margin at first metatarsal head with no signs of infection or necrosis, hard bony cortex noted. COMPLICATIONS: None. SPECIMEN: Left hallux for pathological analysis and deep culture at the amputation margin microbial analysis. ANESTHESIA: General. ESTIMATED BLOOD LOSS: Less than 10 mL. DRAINS: Tremaine. TOURNIQUET TIME: 20 minutes at a setting at 250 mmHg about the patient's ankle. PLAN OF ACTIVITY: PACU and then return to floor. Continue IV antibiotics and continue vascular workup and evaluation of wound healing. JUSTIFICATION OF PROCEDURE: A 67-year-old male, chronic hallux hammertoe and ulcer. The patient was admitted. MRI showed osteomyelitis. Due to the long-term nature of the patient's wound, the deformity and now bone involvement, hallux amputation indicated. Vascular clearance obtained; however, further workup is needed to be certain of healing. No guarantees given or implied regarding the outcome. The patient understood the risks and benefits including, but not limited to possible need for long-term wound care, further debridement, partial foot amputation, possible loss of limb. PROCEDURE IN DETAIL: Under mild sedation, the patient was brought into the operating room, placed on the operating table in supine position. Following the induction of general anesthesia, the left lower extremity was scrubbed, prepped and draped in the usual aseptic fashion. The foot was elevated and exsanguinated and the previously placed mid calf tourniquet inflated to 250 mmHg. The foot was examined. There was noted to be a full-thickness ulceration at the distal aspect of the left hallux with purulent necrotic tissue, hypergranulation tissue involving the near complete entire distal aspect of the hallux. Next, a fish mouth type incision was made at the base of the proximal phalanx, first MPJ area. Sharp and blunt dissection was carried down through epidermis and dermal junction. Venous and arterial structures that were encountered were bovied and ligated. Further sharp and blunt dissection was carried down to the first MPJ joint capsule. Sharp disarticulation took place at this level. The first metatarsal head was examined. It was noted to be free of any cortical deficit. Mild arthritis noted, but no obvious signs of clinical osteomyelitis. A culture was taken at the bone and the soft tissue at this area. The digit was then passed off the field for pathological analysis. The wound was flushed with copious amounts of normal saline. Deep closure took place utilizing Vicryl. Skin was closed utilizing nylon. A [place] drain was placed through the apices of the wound. A bulky bandage applied. Upon relieving the tourniquet, there was a prompt hyperemic response to all digits without any delayed capillary fill time. Digits 2 through 5 intact. The patient recovered nicely in PACU. We will continue to monitor the wound. Bandage change within the next 24 hours. Continue vascular workup and evaluation. Recommendation at least a few more days of IV antibiotics, possibly switching to outpatient oral antibiotics pending deep culture and clinical progress. DIANA Mueller/ABIDA , 08:47 AM , 09:09 AM
[2017-09-29] MEDS ORDERED: DO NOT ADM ANY ANTICOAGULANT DRUGS PRN (09:30)
[2017-09-29] MEDS: ENALAPRIL MALEATE 5 MG TAB PO SCH (09:44)
[2017-09-29] MEDS: metFORMIN HCL 500 MG TAB PO SCH ×2 (09:44→16:33)
[2017-09-29] MEDS: ATORVASTATIN 10 MG TAB PO SCH (09:44)
[2017-09-29] MEDS: GABAPENTIN 300 MG CAP PO SCH ×3 (09:44→16:36)
[2017-09-29] MEDS: DULoxetine HCl DR 30 MG CAP PO SCH ×2 (09:44→21:54)
[2017-09-29] MEDS: SODIUM CHLORIDE 0.9% FLUSH 10 ML FLUSH IV FLUSH SCH ×2 (09:46→21:55)
[2017-09-29 11:20] LABS: HEMOGLOBIN A1C 6.3 % (4.3-6.0)
[2017-09-29] MEDS ORDERED: LIDOCAINE HCL 1% PF 5 ML SYRINGE OTHER ONE (12:00)
[2017-09-29] MEDS ORDERED: ONDANSETRON HCL 4 MG/2 ML VIAL IV PUSH ONE (12:00)
[2017-09-29] MEDS ORDERED: PROPOFOL 200 MG/20 ML AMP IV ONE (12:00)
--- NOTE | 2017-09-29 12:13 | HHI.PR ---
Subjective Remarks 67 year old white mail with a history of type 2 diabetes mellitus with neuropathy, hypertension who presents to the emergency room with worsening left toe swelling redness along with some yellowish malodorous drainage over the past 48 hours despite seeing his primary care physician and having a debridement. He states that he first injured his left toe over 2 years ago in which he stepped on a nail and was seen by Dr. Colvin. At that point, his left toe wound was being managed by podiatry and a referral was given to Dr. Lemon. Dr. Lemon had debrided the area and 14 weeks ago had placed the left foot in an open cast and ordered special insoles for him. 2 weeks ago the left toe became red and swollen with it being infected with further debridement needed. He was placed on Levaquin last however had side effects of headache nausea and fatigue and therefore stopped taking the medication. When he attempted to contact Dr. Lemon, he was requested to see him again prior to be given another oral antibiotics. He at that point went to see his primary care physician Dr. Massey however had one of his partners Dr. Dumont saw him and he was given oral clindamycin and a IM injection of an antibiotic. When he had continued drainage fevers and chills he came into the emergency room today for further evaluation. He denies any other trauma to the area. 09-28 SEEN BY [facility] PODIATRY CONSULT VASCULAR SURGERY TO DETERMINE FLOW STATUS OF LEFT LEG FOR HEALING HAD MRI OF LEFT FOOT- OSTEOMYELITIS DW RN AND PT AND CM 09-[address] Hawkins YESTERDAY AND CLEARED FOR SURGERY HAD SURGERY TODAY WITH DR DELGADO REGARDING LEFT GREAT TOE AMPUTATION [facility] RN AND PATIENT NO NEW COMPLAINTS ANTIBIOTICS PER ID MONITOR TODAY AM LABS Objective Vitals Vital Signs Date Time Temp Pulse Resp B/P (MAP) Pulse Ox O2 Delivery O2 Flow Rate FiO2 09/29/17 09:16 68 16 128/68 (88) 94 Room Air 09/29/17 09:10 69 16 133/7 (49) 94 Room Air 09/29/17 08:59 74 16 134/69 (90) 94 Room Air 09/29/17 08:47 97.5 73 16 129/77 (94) 96 Room Air 09/29/17 07:15 98.1 70 18 163/80 (107) 96 09/29/17 04:00 98.0 76 16 138/75 (96) 95 09/29/17 00:00 98.3 70 17 139/67 (91) 97 09/28/17 21:40 98.0 75 16 142/73 (96) 96 09/28/17 16:00 98.2 74 18 138/75 (96) 99 I/O 09/28/17 09/28/17 09/28/17 09/29/17 09/29/17 09/29/17 07:00 15:00 23:00 07:00 15:00 23:00 Intake Total 80 ml 830 ml 500 ml 250 ml Output Total 1100 ml 1200 ml 900 ml Balance -1020 ml -370 ml -400 ml 250 ml Intake Oral 80 ml 480 ml 500 ml IV Total 350 ml Other 250 ml Output Urine Total 1100 ml 1200 ml 900 ml Result Diagram: 09/29/17 0726 09/29/17 0726 Other Results Laboratory Tests Test 09/27/17 11:25 09/27/17 21:19 09/28/17 05:14 09/29/17 07:26 White Blood Count 9.1 TH/MM3 6.9 TH/MM3 Red Blood Count 3.90 MIL/MM3 3.82 MIL/MM3 Hemoglobin 11.4 GM/DL 11.2 GM/DL Hematocrit 33.7 % 32.8 % Mean Corpuscular Volume 86.3 FL 85.8 FL Mean Corpuscular Hemoglobin 29.1 PG 29.2 PG Mean Corpuscular Hemoglobin Concent 33.7 % 34.1 % Red Cell Distribution Width 15.0 % 14.5 % Platelet Count 293 TH/MM3 272 TH/MM3 Mean Platelet Volume 8.8 FL 8.5 FL Neutrophils (%) (Auto) 78.8 % 69.2 % Lymphocytes (%) (Auto) 11.4 % 19.2 % Monocytes (%) (Auto) 6.3 % 7.4 % Eosinophils (%) (Auto) 3.1 % 3.5 % Basophils (%) (Auto) 0.4 % 0.7 % Neutrophils # (Auto) 7.2 TH/MM3 4.8 TH/MM3 Lymphocytes # (Auto) 1.0 TH/MM3 1.3 TH/MM3 Monocytes # (Auto) 0.6 TH/MM3 0.5 TH/MM3 Eosinophils # (Auto) 0.3 TH/MM3 0.2 TH/MM3 Basophils # (Auto) 0.0 TH/MM3 0.0 TH/MM3 CBC Comment DIFF FINAL DIFF FINAL Differential Comment Blood Urea Nitrogen 11 MG/DL 11 MG/DL 11 MG/DL Creatinine 0.72 MG/DL 0.86 MG/DL 0.67 MG/DL Random Glucose 186 MG/DL 118 MG/DL 121 MG/DL Calcium Level 8.4 MG/DL 8.4 MG/DL 8.4 MG/DL Sodium Level 136 MEQ/L 140 MEQ/L 140 MEQ/L Potassium Level 3.5 MEQ/L 3.8 MEQ/L 3.9 MEQ/L Chloride Level 97 MEQ/L 102 MEQ/L 103 MEQ/L Carbon Dioxide Level 26.5 MEQ/L 30.2 MEQ/L 28.0 MEQ/L Anion Gap 13 MEQ/L 8 MEQ/L 9 MEQ/L Estimat Glomerular Filtration Rate 110 ML/MIN 89 ML/MIN 119 ML/MIN Erythrocyte Sedimentation Rate GREATER THAN 140 mm/hr Total Protein 7.2 GM/DL Albumin 2.9 GM/DL Phosphorus Level 4.3 MG/DL Magnesium Level 2.1 MG/DL Alkaline Phosphatase 67 U/L Aspartate Amino Transf (AST/SGOT) 10 U/L Alanine Aminotransferase (ALT/SGPT) 18 U/L Total Bilirubin 0.3 MG/DL Hemoglobin A1c 6.3 % Free Thyroxine 0.98 NG/DL Thyroid Stimulating Hormone 3rd Gen 1.480 uIU/ML Imaging Last Impressions Foot MRI 09/28/17 0000 Signed Impressions: Service Date/Time: Thursday, September 28, 2017 08:09 - CONCLUSION: 1. The examination demonstrates abnormal marrow edema with marrow enhancement enhancement involving the distal phalanx of the first digit. This is concerning for osteomyelitis. The proximal phalanx of the first digit appears intact. Jameel Wong MD Carotid Artery Ultrasound 09/28/17 0000 Signed Impressions: Service Date/Time: Thursday, September 28, 2017 19:46 - CONCLUSION: Mild plaque without significant stenosis. Silvano Tenorio MD Toe X-Ray 09/27/17 1112 Signed Impressions: Service Date/Time: September 11:47 - CONCLUSION: Findings are characteristic of osteomyelitis first distal phalanx. Doe Fernandes MD Abdomen X-Ray 09/27/17 0000 Signed Impressions: Service Date/Time: September 22:33 - CONCLUSION: Non-ferromagnetic penile implant. Alcon Gallagher Jr., MD Objective Remarks GENERAL: Awake alert and oriented 3 talkative and cooperative SKIN: Warm and dry. Left foot is dressed HEAD: Atraumatic. Normocephalic. EYES: Pupils equal and round. No scleral icterus. No injection or drainage. Extraocular muscles intact ENT: No nasal bleeding or discharge. Mucous membranes pink and moist. Tongue is midline NECK: Trachea midline. No JVD. Supple CARDIOVASCULAR: Regular rate and rhythm. S1-S2 no S3 or S4 RESPIRATORY: No accessory muscle use. Clear to auscultation. Breath sounds equal bilaterally. GASTROINTESTINAL: Abdomen soft, non-tender, nondistended. Hepatic and splenic margins not palpable. MUSCULOSKELETAL: Extremities without clubbing, cyanosis, or edema. No obvious deformities. NEUROLOGICAL: Awake and alert. No obvious cranial nerve deficits. Motor grossly within normal limits. Five out of 5 muscle strength in the arms and legs. Normal speech. Left foot is dressed PSYCHIATRIC: Appropriate mood and affect; insight and judgment normal. Procedures 09/29/2017 PREOPERATIVE DIAGNOSES: Left hallux ulcer, osteomyelitis, hammertoe contracture. POSTOPERATIVE DIAGNOSES: Left hallux ulcer, osteomyelitis, hammertoe contracture. PROCEDURE PERFORMED: Left hallux amputation. FINDINGS: Clinically clear margin at first metatarsal head with no signs of infection or necrosis, hard bony cortex noted. COMPLICATIONS: None. SPECIMEN: Left hallux for pathological analysis and deep culture at the amputation margin microbial analysis. ANESTHESIA: General. ESTIMATED BLOOD LOSS: Less than 10 mL. DRAINS: Tremaine. TOURNIQUET TIME: 20 minutes at a setting at 250 mmHg about the patient's ankle. PLAN OF ACTIVITY: PACU and then return to floor. Continue IV antibiotics and continue vascular workup and evaluation of wound healing. JUSTIFICATION OF PROCEDURE: A 67-year-old male, chronic hallux hammertoe and ulcer. The patient was admitted. MRI showed osteomyelitis. Due to the long-term nature of the patient's wound, the deformity and now bone involvement, hallux amputation indicated. Vascular clearance obtained; however, further workup is needed to be certain of healing. No guarantees given or implied regarding the outcome. The patient understood the risks and benefits including, but not limited to possible need for long-term wound care, further debridement, partial foot amputation, possible loss of limb. PROCEDURE IN DETAIL: Under mild sedation, the patient was brought into the operating room, placed on the operating table in supine position. Following the induction of general anesthesia, the left lower extremity was scrubbed, prepped and draped in the usual aseptic fashion. The foot was elevated and exsanguinated and the previously placed mid calf tourniquet inflated to 250 mmHg. The foot was examined. There was noted to be a full-thickness ulceration at the distal aspect of the left hallux with purulent necrotic tissue, hypergranulation tissue involving the near complete entire distal aspect of the hallux. Next, a fish mouth type incision was made at the base of the proximal phalanx, first MPJ area. Sharp and blunt dissection was carried down through epidermis and dermal junction. Venous and arterial structures that were encountered were bovied and ligated. Further sharp and blunt dissection was carried down to the first MPJ joint capsule. Sharp disarticulation took place at this level. The first metatarsal head was examined. It was noted to be free of any cortical deficit. Mild arthritis noted, but no obvious signs of clinical osteomyelitis. A culture was taken at the bone and the soft tissue at this area. The digit was then passed off the field for pathological analysis. The wound was flushed with copious amounts of normal saline. Deep closure took place utilizing Vicryl. Skin was closed utilizing nylon. A Tremaine drain was placed through the apices of the wound. A bulky bandage applied. Upon relieving the tourniquet, there was a prompt hyperemic response to all digits without any delayed capillary fill time. Digits 2 through 5 intact. The patient recovered nicely in PACU. We will continue to monitor the wound. Bandage change within the next 24 hours. Continue vascular workup and evaluation. Recommendation at least a few more days of IV antibiotics, possibly switching to outpatient oral antibiotics pending deep culture and clinical progress. Qamar Delgado DPM Medications and IVs Current Medications Ketorolac Tromethamine (Toradol Inj) 30 mg ONCE ONCE IVP Last administered on 09/27/17at 11:35; Start 09/27/17 at 11:15; Stop 09/27/17 at 11:20; Status DC Clindamycin Phosphate 900 mg/ Sodium Chloride 106 ml @ 200 mls/hr ONCE ONCE IV Last administered on 09/27/17at 11:36; Start 09/27/17 at 11:15; Stop at 11:46; Status DC Sodium Chloride (NS Flush) 2 ml BID IV FLUSH Last administered on 09/29/17at 09: 46; Start 09/27/17 at 21:00 Sodium Chloride (NS Flush) 2 ml UNSCH PRN IV FLUSH FLUSH AFTER USING IV ACCESS ; Start 09/27/17 at 13:30 Pharmacy Profile Note 0 ml @ 0 mls/hr UNSCH OTHER ; Start 09/27/17 at 13:30 Acetaminophen (Tylenol) 500 mg Q4H PRN PO FEVER >101F; Start 09/27/17 at 13:30 Acetaminophen/ Hydrocodone Bitart ([place] 5-325 Mg) 1 tab Q4H PRN PO PAIN SCALE 1 TO 5; Start 09/27/17 at 13:30 Acetaminophen/ Hydrocodone Bitart ([place] 7.5-325 Mg) 1 tab Q4H PRN PO PAIN SCALE 6 TO 10; Start 09/27/17 at 13:30 Vancomycin HCl 1000 mg/Sodium Chloride 250 ml @ 250 mls/hr Q12H IV ; Start at 15:00; Status Cancel Enoxaparin Sodium (Lovenox Inj) 40 mg Q24H SQ Last administered on 09/28/17at 16 :16; Start 09/27/17 at 15:00 Dextrose (D50w (Vial) Inj) 50 ml UNSCH PRN IV PUSH HYPOGLYCEMIA-SEE COMMENTS; Start 09/27/17 at 13:30 Glucagon (Glucagon Inj) 1 mg UNSCH PRN OTHER HYPOGLYCEMIA-SEE COMMENTS; Start 09/27/17 at 13:30 Insulin Aspart (NovoLOG SUPPLEMENTAL SCALE) 1 ACHS SLIDING SCALE SQ Last administered on 09/28/17at 20:16; Start 09/27/17 at 17:00 Clindamycin/ Sodium Chloride 50 ml @ 100 mls/hr Q8H IV Last administered on at 12:29; Start 09/27/17 at 21:00; Stop 09/28/17 at 14:41; Status DC Magnesium Hydroxide (Milk Of Magnesia Liq) 30 ml Q12H PRN PO Mild constipation ; Start 09/27/17 at 13:45 Sennosides (Senokot) 17.2 mg Q12H PRN PO Moderate constipation; Start 09/27/17 at 13:45 Bisacodyl (Dulcolax Supp) 10 mg DAILY PRN RECTAL SEVERE CONSITIPATION; Start at 13:45 Lactulose (Lactulose Liq) 30 ml DAILY PRN PO SEVERE CONSITIPATION; Start at 13:45 Vancomycin HCl 1500 mg/Sodium Chloride 515 ml @ 250 mls/hr Q12H IV Last administered on 09/29/17at 04:03; Start 09/27/17 at 16:00 Miscellaneous Information ([facility] Ordered Lab Info) SPECIFIC LAB TO BE DRAWN:VANCOMYCIN TROUGH DATE TO... ONCE ONCE .XX ; Start 09/29/17 at 03:45; Stop 09/29/17 at 03:46; Status DC Duloxetine HCl (Cymbalta Dr) 30 mg BID PO Last administered on 09/29/17at 09:44 ; Start 09/27/17 at 21:00 Enalapril Maleate (Vasotec) 5 mg DAILY PO Last administered on 09/29/17at 09:44 ; Start 09/28/17 at 09:00 Gabapentin (Neurontin) 600 mg TID PO Last administered on 09/29/17at 09:44; Start 09/27/17 at 18:00 Metformin HCl (Glucophage) 500 mg BIDPC PO Last administered on 09/29/17at 09:44 ; Start 09/27/17 at 18:00 Atorvastatin Calcium (Lipitor) 10 mg EVERY OTHER DAY PO Last administered on at 09:44; Start 09/29/17 at 09:00 Enalaprilat (Vasotec Inj) 1.25 mg Q6H PRN IV PUSH SBP> OR = 180, DBP> OR = 100 ; Start 09/27/17 at 14:45 Pneumococcal Polyvalent Vaccine (Pneumovax-23 Inj) 25 mcg ONCE ONCE IM ; Start 09/28/17 at 10:00; Stop 09/28/17 at 10:01; Status DC Influenza Virus Vaccine (Flu (Quadrivalent) Vaccine Inj) 0.5 ml ONCE ONCE IM ; Start 09/28/17 at 10:00; Stop 09/28/17 at 10:01; Status DC Gadodiamide (Omniscan Pf Inj) 19 ml STK-MED ONCE IVCONTRAST Last administered on 09/28/17at 08:42; Start 09/28/17 at 08:42; Stop 09/28/17 at 08:43; Status DC Lactated Ringer's 1,000 ml @ 30 mls/hr Q24H PRN IV SEE LABEL COMMENTS; Start at 22:30; Stop 10/01/17 at 22:29 Sodium Chloride 500 ml @ 30 mls/hr [id number] PRN IV SEE LABEL COMMENTS; Start at 22:30; Stop 10/01/17 at 22:29 Metoprolol Tartrate (Lopressor) 25 mg [employer] PRN PO SEE LABEL COMMENTS; Start 09/28/17 at 22:30; Stop 10/01/17 at 22:29 Chlorhexidine Gluconate (Chlorhexidine 2% Cloth) 3 pack [employer] PRN TOPICAL SEE LABEL COMMENTS; Start 09/28/17 at 22:30; Stop 10/01/17 at 22:29 Bupivacaine HCl (Marcaine Pf 0.25% Inj) 30 ml STK-MED ONCE .ROUTE Last administered on 09/29/17at 08:35; Start 09/29/17 at 07:04; Stop 09/29/17 at 07:05 ; Status DC Neomycin/Polymyxin (Neosporin G.u. Irr) 1 ml STK-MED ONCE .ROUTE ; Start at 07:07; Stop 09/29/17 at 07:08; Status DC Miscellaneous Information ([facility] Ordered Lab Info) SPECIFIC LAB TO BE LEELA... ONCE ONCE .XX ; Start 09/29/17 at 15:45; Stop 09/29/17 at 15:46 Fentanyl Citrate (fentaNYL INJ) 100 mcg STK-MED ONCE .ROUTE ; Start 09/29/17 at 08:54; Stop 09/29/17 at 08:55; Status DC Midazolam HCl (Versed Inj) 2 mg STK-MED ONCE .ROUTE ; Start 09/29/17 at 08:54; Stop 09/29/17 at 08:55; Status DC Morphine Sulfate (*morphine INJ PERIprocedure ONLY) 4 mg STK-MED ONCE .ROUTE Last administered on 09/29/17at 09:02; Start 09/29/17 at 09:02; Stop 09/29/17 at 09:03; Status DC Miscellaneous Information ([facility]) ALL NURSING DEPARTME... UNSCH PRN .XX SEE LABEL COMMENTS; Start 09/29/17 at 09:30; Stop 09/30/17 at 09: 29 A/P Assessment and Plan 1. Left great toe osteomyelitis with infected wound -continue with IV vancomycin, consult podiatry for further evaluation for surgical intervention. Consult infectious disease for further recommendations. Await final wound culture and blood cultures. Pain medication as needed.--Consult of infectious disease-- medication have been adjusted Consult vascular surgery Has been seen by podiatry SP LEFT HALLUX AMPUTATION 09-29 2. Diabetic mellitus type II -continue with Accu-Cheks with sliding scale insulin 3. Diabetic neuropathy- continue with gabapentin 4. Chronic hypertension, essential continue with home antihypertensives. 5.DVT prophylaxis - Lovenox Pain control on medications for constipation [facility]RY RN AND PT ANTIBIOTICS PER ID [facility] RN AND PT Discharge Planning Pending clearance by podiatry and infectious disease and vascular surgery Shawn Murcia DO September 29, 2017 12:13
--- NOTE | 2017-09-29 13:45 | EKG ---
Date Performed: 09/28/2017 Time Performed: 22:10:54 PTAGE: 67 years EKG: Sinus rhythm . Right bundle branch block Possible anterior infarct - age undetermined Low QRS voltages in precordi al leads Abnormal ECG PREVIOUS TRACING : 08/18/2002 09.20 Since the previous tracing, no significant change noted DOCTOR: Wander Duarte Interpretating Date/Time 09/29/2017 13:43:08
[2017-09-29] MEDS: ENOXAPARIN SODIUM 40 MG/0.4 ML SYRINGE SQ SCH (15:34)
[2017-09-29] MEDS: ACETAMINOPHEN/HYDROcodone 325 MG/5 MG TAB PO PRN (21:54)
[2017-09-30] VITALS: BP 125/62; PULSE 70; RESP 20; TEMP 98.8; O2SAT 95
[2017-09-30] MEDS: VANCOMYCIN INJ 1,500 MG in SODIUM CHLORID 0.9% 500 ML INJ 500 ML IV SCH ×2 (03:54→16:23)
[2017-09-30 04:00] VITALS: BP 123/70; PULSE 70; RESP 20; TEMP 98.3; O2SAT 96
[2017-09-30 07:17] LABS: ALBUMIN 2.8 GM/DL (3.4-5.0); ALKALINE PHOSPHATASE 71 U/L (45-117); ALT (GPT) 26 U/L (12-78); AST (GOT) 24 U/L (15-37); BICARBONATE 28.9 MEQ/L (21.0-32.0); BLOOD UREA NITROGEN 12 MG/DL (7-18); CALCIUM 8.5 MG/DL (8.5-10.1); CHLORIDE 103 MEQ/L (98-107); CREATININE 0.73 MG/DL (0.60-1.30); GLOMERULAR FILTRATION RATE 108 ML/MIN (>89); GLUCOSE,RANDOM 120 MG/DL (74-106); PHOSPHORUS 4.4 MG/DL (2.5-4.9); SODIUM (NA) 140 MEQ/L (136-145); TOTAL BILIRUBIN ADULT 0.4 MG/DL (0.2-1.0); TOTAL PROTEIN 7.1 GM/DL (6.4-8.2)
[2017-09-30 07:39] LABS: AUTOMATED NEUTROPHIL # 5.5 TH/MM3 (1.8-7.7); BASOPHIL % 0.5 % (0.0-2.0); EOSINOPHIL # 0.2 TH/MM3 (0-0.4); EOSINOPHIL % 3.2 % (0.0-4.0); HEMATOCRIT 33.7 % (39.0-51.0); HEMOGLOBIN 11.4 GM/DL (13.0-17.0); LYMPH % 17.4 % (9.0-44.0); LYMPHOCYTE # 1.3 TH/MM3 (1.0-4.8); MEAN CELL VOLUME 85.5 FL (80.0-100.0); MEAN CORPUSCULAR HEMOGLOBIN 28.8 PG (27.0-34.0); MEAN CORPUSCULAR HGB CONC 33.7 % (32.0-36.0); MEAN PLATELET VOLUME 8.2 FL (7.0-11.0); MONO % 6.8 % (0.0-8.0); MONOCYTE # 0.5 TH/MM3 (0-0.9); NEUT % 72.1 % (16.0-70.0); PLATELET COUNT 315 TH/MM3 (150-450); RED BLOOD COUNT 3.94 MIL/MM3 (4.50-5.90); RED CELL DISTRIBUTION WIDTH 14.8 % (11.6-17.2); WHITE BLOOD COUNT 7.6 TH/MM3 (4.0-11.0)
[2017-09-30 08:00] VITALS: BP 143/71; PULSE 67; RESP 16; TEMP 98; O2SAT 99
[2017-09-30] MEDS: INSULIN ASPART SUPPLEMENTAL SCALE SQ SCH ×4 (08:00→20:49)
[2017-09-30] MEDS: GABAPENTIN 300 MG CAP PO SCH ×3 (08:22→20:54)
[2017-09-30] MEDS: DULoxetine HCl DR 30 MG CAP PO SCH ×2 (08:23→20:50)
[2017-09-30] MEDS: ENALAPRIL MALEATE 5 MG TAB PO SCH (08:23)
[2017-09-30] MEDS: metFORMIN HCL 500 MG TAB PO SCH ×2 (08:23→16:56)
[2017-09-30] MEDS: SODIUM CHLORIDE 0.9% FLUSH 10 ML FLUSH IV FLUSH SCH ×2 (09:00→20:49)
--- NOTE | 2017-09-30 11:43 | HHI.PR ---
Subjective Remarks 67 year old white mail with a history of type 2 diabetes mellitus with neuropathy, hypertension who presents to the emergency room with worsening left toe swelling redness along with some yellowish malodorous drainage over the past 48 hours despite seeing his primary care physician and having a debridement. He states that he first injured his left toe over 2 years ago in which he stepped on a nail and was seen by Dr. Colvin. At that point, his left toe wound was being managed by podiatry and a referral was given to Dr. Lemon. Dr. Lemon had debrided the area and 14 weeks ago had placed the left foot in an open cast and ordered special insoles for him. 2 weeks ago the left toe became red and swollen with it being infected with further debridement needed. He was placed on Levaquin last however had side effects of headache nausea and fatigue and therefore stopped taking the medication. When he attempted to contact Dr. Lemon, he was requested to see him again prior to be given another oral antibiotics. He at that point went to see his primary care physician Dr. Massey however had one of his partners Dr. Dumont saw him and he was given oral clindamycin and a IM injection of an antibiotic. When he had continued drainage fevers and chills he came into the emergency room today for further evaluation. He denies any other trauma to the area. 09-28 SEEN BY ID AND PODIATRY CONSULT VASCULAR SURGERY TO DETERMINE FLOW STATUS OF LEFT LEG FOR HEALING HAD MRI OF LEFT FOOT- OSTEOMYELITIS DW RN AND PT AND CM 09-[address] Hawkins YESTERDAY AND CLEARED FOR SURGERY HAD SURGERY TODAY WITH DR DELGADO REGARDING LEFT GREAT TOE AMPUTATION HENRY RN AND PATIENT NO NEW COMPLAINTS ANTIBIOTICS PER ID MONITOR TODAY AM LABS 09-30 NO NEW COMPLAINTS WANTS TIMES ON GABAPENTIN ADJUSTED- DONE CONTINUE CURRENT ANTIBIOTICS DW RN AND PT AND PHARMACY Objective Vitals Vital Signs Date Time Temp Pulse Resp B/P (MAP) Pulse Ox O2 Delivery O2 Flow Rate FiO2 09/30/17 08:00 98.0 67 16 143/71 (95) 99 09/30/17 07:00 Room Air 09/30/17 04:00 Room Air 09/30/17 04:00 98.3 70 20 123/70 (87) 96 09/30/17 00:00 Room Air 09/30/17 00:00 98.8 70 20 125/62 (83) 95 09/29/17 20:00 98.2 74 20 131/64 (86) 94 09/29/17 16:00 98.2 70 18 150/71 (97) 99 09/29/17 12:00 97.6 64 18 129/65 (86) 97 I/O 09/29/17 09/29/17 09/29/17 09/30/17 09/30/17 09/30/17 07:00 15:00 23:00 07:00 15:00 23:00 Intake Total 500 ml 250 ml 240 ml 925 ml Output Total 900 ml 850 ml Balance -400 ml 250 ml -610 ml 925 ml Intake Oral 500 ml 240 ml 400 ml IV Total 525 ml Other 250 ml Output Urine Total 900 ml 850 ml # Voids 4 # Bowel Movements 1 Result Diagram: 09/30/17 0539 09/30/17 0539 Other Results Laboratory Tests Test 09/27/17 21:19 09/28/17 05:14 09/29/17 07:26 09/29/17 16:20 Erythrocyte Sedimentation Rate GREATER THAN 140 mm/hr Blood Urea Nitrogen 11 MG/DL 11 MG/DL Creatinine 0.86 MG/DL 0.67 MG/DL Random Glucose 118 MG/DL 121 MG/DL Calcium Level 8.4 MG/DL 8.4 MG/DL Sodium Level 140 MEQ/L 140 MEQ/L Potassium Level 3.8 MEQ/L 3.9 MEQ/L Chloride Level 102 MEQ/L 103 MEQ/L Carbon Dioxide Level 30.2 MEQ/L 28.0 MEQ/L Anion Gap 8 MEQ/L 9 MEQ/L Estimat Glomerular Filtration Rate 89 ML/MIN 119 ML/MIN White Blood Count 6.9 TH/MM3 Red Blood Count 3.82 MIL/MM3 Hemoglobin 11.2 GM/DL Hematocrit 32.8 % Mean Corpuscular Volume 85.8 FL Mean Corpuscular Hemoglobin 29.2 PG Mean Corpuscular Hemoglobin Concent 34.1 % Red Cell Distribution Width 14.5 % Platelet Count 272 TH/MM3 Mean Platelet Volume 8.5 FL Neutrophils (%) (Auto) 69.2 % Lymphocytes (%) (Auto) 19.2 % Monocytes (%) (Auto) 7.4 % Eosinophils (%) (Auto) 3.5 % Basophils (%) (Auto) 0.7 % Neutrophils # (Auto) 4.8 TH/MM3 Lymphocytes # (Auto) 1.3 TH/MM3 Monocytes # (Auto) 0.5 TH/MM3 Eosinophils # (Auto) 0.2 TH/MM3 Basophils # (Auto) 0.0 TH/MM3 CBC Comment DIFF FINAL Differential Comment Total Protein 7.2 GM/DL Albumin 2.9 GM/DL Phosphorus Level 4.3 MG/DL Magnesium Level 2.1 MG/DL Alkaline Phosphatase 67 U/L Aspartate Amino Transf (AST/SGOT) 10 U/L Alanine Aminotransferase (ALT/SGPT) 18 U/L Total Bilirubin 0.3 MG/DL Hemoglobin A1c 6.3 % Free Thyroxine 0.98 NG/DL Thyroid Stimulating Hormone 3rd Gen 1.480 uIU/ML Vancomycin Level Trough 12.5 MCG/ML Test 09/30/17 05:39 White Blood Count 7.6 TH/MM3 Red Blood Count 3.94 MIL/MM3 Hemoglobin 11.4 GM/DL Hematocrit 33.7 % Mean Corpuscular Volume 85.5 FL Mean Corpuscular Hemoglobin 28.8 PG Mean Corpuscular Hemoglobin Concent 33.7 % Red Cell Distribution Width 14.8 % Platelet Count 315 TH/MM3 Mean Platelet Volume 8.2 FL Neutrophils (%) (Auto) 72.1 % Lymphocytes (%) (Auto) 17.4 % Monocytes (%) (Auto) 6.8 % Eosinophils (%) (Auto) 3.2 % Basophils (%) (Auto) 0.5 % Neutrophils # (Auto) 5.5 TH/MM3 Lymphocytes # (Auto) 1.3 TH/MM3 Monocytes # (Auto) 0.5 TH/MM3 Eosinophils # (Auto) 0.2 TH/MM3 Basophils # (Auto) 0.0 TH/MM3 CBC Comment DIFF FINAL Differential Comment Blood Urea Nitrogen 12 MG/DL Creatinine 0.73 MG/DL Random Glucose 120 MG/DL Total Protein 7.1 GM/DL Albumin 2.8 GM/DL Calcium Level 8.5 MG/DL Phosphorus Level 4.4 MG/DL Magnesium Level 2.0 MG/DL Alkaline Phosphatase 71 U/L Aspartate Amino Transf (AST/SGOT) 24 U/L Alanine Aminotransferase (ALT/SGPT) 26 U/L Total Bilirubin 0.4 MG/DL Sodium Level 140 MEQ/L Potassium Level 3.9 MEQ/L Chloride Level 103 MEQ/L Carbon Dioxide Level 28.9 MEQ/L Anion Gap 8 MEQ/L Estimat Glomerular Filtration Rate 108 ML/MIN Imaging Last Impressions Foot MRI 09/28/17 0000 Signed Impressions: Service Date/Time: Thursday, September 28, 2017 08:09 - CONCLUSION: 1. The examination demonstrates abnormal marrow edema with marrow enhancement enhancement involving the distal phalanx of the first digit. This is concerning for osteomyelitis. The proximal phalanx of the first digit appears intact. Jameel Wong MD Carotid Artery Ultrasound 09/28/17 0000 Signed Impressions: Service Date/Time: Thursday, September 28, 2017 19:46 - CONCLUSION: Mild plaque without significant stenosis. Silvano Tenorio MD Toe X-Ray 09/27/17 1112 Signed Impressions: Service Date/Time: September 11:47 - CONCLUSION: Findings are characteristic of osteomyelitis first distal phalanx. Doe Fernandes MD Abdomen X-Ray 09/27/17 0000 Signed Impressions: Service Date/Time: September 22:33 - CONCLUSION: Non-ferromagnetic penile implant. Alcon Gallagher Jr., MD Objective Remarks GENERAL: Awake alert and oriented 3 talkative and cooperative SKIN: Warm and dry. Left foot is dressed HEAD: Atraumatic. Normocephalic. EYES: Pupils equal and round. No scleral icterus. No injection or drainage. Extraocular muscles intact ENT: No nasal bleeding or discharge. Mucous membranes pink and moist. Tongue is midline NECK: Trachea midline. No JVD. Supple CARDIOVASCULAR: Regular rate and rhythm. S1-S2 no S3 or S4 RESPIRATORY: No accessory muscle use. Clear to auscultation. Breath sounds equal bilaterally. GASTROINTESTINAL: Abdomen soft, non-tender, nondistended. Hepatic and splenic margins not palpable. MUSCULOSKELETAL: Extremities without clubbing, cyanosis, or edema. No obvious deformities. NEUROLOGICAL: Awake and alert. No obvious cranial nerve deficits. Motor grossly within normal limits. Five out of 5 muscle strength in the arms and legs. Normal speech. Left foot is dressed PSYCHIATRIC: Appropriate mood and affect; insight and judgment normal. Procedures 09/29/2017 PREOPERATIVE DIAGNOSES: Left hallux ulcer, osteomyelitis, hammertoe contracture. POSTOPERATIVE DIAGNOSES: Left hallux ulcer, osteomyelitis, hammertoe contracture. PROCEDURE PERFORMED: Left hallux amputation. FINDINGS: Clinically clear margin at first metatarsal head with no signs of infection or necrosis, hard bony cortex noted. COMPLICATIONS: None. SPECIMEN: Left hallux for pathological analysis and deep culture at the amputation margin microbial analysis. ANESTHESIA: General. ESTIMATED BLOOD LOSS: Less than 10 mL. DRAINS: [place]. TOURNIQUET TIME: 20 minutes at a setting at 250 mmHg about the patient's ankle. PLAN OF ACTIVITY: PACU and then return to floor. Continue IV antibiotics and continue vascular workup and evaluation of wound healing. JUSTIFICATION OF PROCEDURE: A 67-year-old male, chronic hallux hammertoe and ulcer. The patient was admitted. MRI showed osteomyelitis. Due to the long-term nature of the patient's wound, the deformity and now bone involvement, hallux amputation indicated. Vascular clearance obtained; however, further workup is needed to be certain of healing. No guarantees given or implied regarding the outcome. The patient understood the risks and benefits including, but not limited to possible need for long-term wound care, further debridement, partial foot amputation, possible loss of limb. PROCEDURE IN DETAIL: Under mild sedation, the patient was brought into the operating room, placed on the operating table in supine position. Following the induction of general anesthesia, the left lower extremity was scrubbed, prepped and draped in the usual aseptic fashion. The foot was elevated and exsanguinated and the previously placed mid calf tourniquet inflated to 250 mmHg. The foot was examined. There was noted to be a full-thickness ulceration at the distal aspect of the left hallux with purulent necrotic tissue, hypergranulation tissue involving the near complete entire distal aspect of the hallux. Next, a fish mouth type incision was made at the base of the proximal phalanx, first MPJ area. Sharp and blunt dissection was carried down through epidermis and dermal junction. Venous and arterial structures that were encountered were bovied and ligated. Further sharp and blunt dissection was carried down to the first MPJ joint capsule. Sharp disarticulation took place at this level. The first metatarsal head was examined. It was noted to be free of any cortical deficit. Mild arthritis noted, but no obvious signs of clinical osteomyelitis. A culture was taken at the bone and the soft tissue at this area. The digit was then passed off the field for pathological analysis. The wound was flushed with copious amounts of normal saline. Deep closure took place utilizing Vicryl. Skin was closed utilizing nylon. A [place] drain was placed through the apices of the wound. A bulky bandage applied. Upon relieving the tourniquet, there was a prompt hyperemic response to all digits without any delayed capillary fill time. Digits 2 through 5 intact. The patient recovered nicely in PACU. We will continue to monitor the wound. Bandage change within the next 24 hours. Continue vascular workup and evaluation. Recommendation at least a few more days of IV antibiotics, possibly switching to outpatient oral antibiotics pending deep culture and clinical progress. Qamar Delgado DPM Medications and IVs Current Medications Ketorolac Tromethamine (Toradol Inj) 30 mg ONCE ONCE IVP Last administered on 09/27/17at 11:35; Start 09/27/17 at 11:15; Stop 09/27/17 at 11:20; Status DC Clindamycin Phosphate 900 mg/ Sodium Chloride 106 ml @ 200 mls/hr ONCE ONCE IV Last administered on 09/27/17at 11:36; Start 09/27/17 at 11:15; Stop at 11:46; Status DC Sodium Chloride (NS Flush) 2 ml BID IV FLUSH Last administered on 09/30/17at 09: 00; Start 09/27/17 at 21:00 Sodium Chloride (NS Flush) 2 ml UNSCH PRN IV FLUSH FLUSH AFTER USING IV ACCESS ; Start 09/27/17 at 13:30 Pharmacy Profile Note 0 ml @ 0 mls/hr UNSCH OTHER ; Start 09/27/17 at 13:30 Acetaminophen (Tylenol) 500 mg Q4H PRN PO FEVER >101F Last administered on at 10:57; Start 09/27/17 at 13:30 Acetaminophen/ Hydrocodone Bitart ([place] 5-325 Mg) 1 tab Q4H PRN PO PAIN SCALE 1 TO 5 Last administered on 09/29/17at 21:54; Start 09/27/17 at 13:30 Acetaminophen/ Hydrocodone Bitart ([place] 7.5-325 Mg) 1 tab Q4H PRN PO PAIN SCALE 6 TO 10; Start 09/27/17 at 13:30 Vancomycin HCl 1000 mg/Sodium Chloride 250 ml @ 250 mls/hr Q12H IV ; Start at 15:00; Status Cancel Enoxaparin Sodium (Lovenox Inj) 40 mg Q24H SQ Last administered on 09/29/17at 15 :34; Start 09/27/17 at 15:00 Dextrose (D50w (Vial) Inj) 50 ml UNSCH PRN IV PUSH HYPOGLYCEMIA-SEE COMMENTS; Start 09/27/17 at 13:30 Glucagon (Glucagon Inj) 1 mg UNSCH PRN OTHER HYPOGLYCEMIA-SEE COMMENTS; Start 09/27/17 at 13:30 Insulin Aspart (NovoLOG SUPPLEMENTAL SCALE) 1 ACHS SLIDING SCALE SQ Last administered on 09/29/17at 21:56; Start 09/27/17 at 17:00 Clindamycin/ Sodium Chloride 50 ml @ 100 mls/hr Q8H IV Last administered on at 12:29; Start 09/27/17 at 21:00; Stop 09/28/17 at 14:41; Status DC Magnesium Hydroxide (Milk Of Magnesia Liq) 30 ml Q12H PRN PO Mild constipation ; Start 09/27/17 at 13:45 Sennosides (Senokot) 17.2 mg Q12H PRN PO Moderate constipation; Start 09/27/17 at 13:45 Bisacodyl (Dulcolax Supp) 10 mg DAILY PRN RECTAL SEVERE CONSITIPATION; Start at 13:45 Lactulose (Lactulose Liq) 30 ml DAILY PRN PO SEVERE CONSITIPATION; Start at 13:45 Vancomycin HCl 1500 mg/Sodium Chloride 515 ml @ 250 mls/hr Q12H IV Last administered on 09/30/17at 03:54; Start 09/27/17 at 16:00 Miscellaneous Information ([facility] Ordered Lab Info) SPECIFIC LAB TO BE DRAWN:VANCOMYCIN TROUGH DATE TO... ONCE ONCE .XX ; Start 09/29/17 at 03:45; Stop 09/29/17 at 03:46; Status DC Duloxetine HCl (Cymbalta Dr) 30 mg BID PO Last administered on 09/30/17at 08:23 ; Start 09/27/17 at 21:00 Enalapril Maleate (Vasotec) 5 mg DAILY PO Last administered on 09/30/17at 08:23 ; Start 09/28/17 at 09:00 Gabapentin (Neurontin) 600 mg TID PO Last administered on 09/30/17at 08:22; Start 09/27/17 at 18:00 Metformin HCl (Glucophage) 500 mg BIDPC PO Last administered on 09/30/17at 08:23 ; Start 09/27/17 at 18:00 Atorvastatin Calcium (Lipitor) 10 mg EVERY OTHER DAY PO Last administered on at 09:44; Start 09/29/17 at 09:00 Enalaprilat (Vasotec Inj) 1.25 mg Q6H PRN IV PUSH SBP> OR = 180, DBP> OR = 100 ; Start 09/27/17 at 14:45 Pneumococcal Polyvalent Vaccine (Pneumovax-23 Inj) 25 mcg ONCE ONCE IM ; Start 09/28/17 at 10:00; Stop 09/28/17 at 10:01; Status DC Influenza Virus Vaccine (Flu (Quadrivalent) Vaccine Inj) 0.5 ml ONCE ONCE IM ; Start 09/28/17 at 10:00; Stop 09/28/17 at 10:01; Status DC Gadodiamide (Omniscan Pf Inj) 19 ml STK-MED ONCE IVCONTRAST Last administered on 09/28/17at 08:42; Start 09/28/17 at 08:42; Stop 09/28/17 at 08:43; Status DC Lactated Ringer's 1,000 ml @ 30 mls/hr Q24H PRN IV SEE LABEL COMMENTS; Start at 22:30; Stop 10/01/17 at 22:29 Sodium Chloride 500 ml @ 30 mls/hr [id number] PRN IV SEE LABEL COMMENTS; Start at 22:30; Stop 10/01/17 at 22:29 Metoprolol Tartrate (Lopressor) 25 mg MOLDER FITTING PRN PO SEE LABEL COMMENTS; Start 09/28/17 at 22:30; Stop 10/01/17 at 22:29 Chlorhexidine Gluconate (Chlorhexidine 2% Cloth) 3 pack MOLDER FITTING PRN TOPICAL SEE LABEL COMMENTS; Start 09/28/17 at 22:30; Stop 10/01/17 at 22:29 Bupivacaine HCl (Marcaine Pf 0.25% Inj) 30 ml STK-MED ONCE .ROUTE Last administered on 09/29/17at 08:35; Start 09/29/17 at 07:04; Stop 09/29/17 at 07:05 ; Status DC Neomycin/Polymyxin (Neosporin G.u. Irr) 1 ml STK-MED ONCE .ROUTE ; Start at 07:07; Stop 09/29/17 at 07:08; Status DC Miscellaneous Information ([facility] Ordered Lab Info) SPECIFIC LAB TO BE LEELA... ONCE ONCE .XX Last administered on 09/29/17at 15:45; Start 09/29/17 at 15:45; Stop 09/29/17 at 15:46; Status DC Fentanyl Citrate (fentaNYL INJ) 100 mcg STK-MED ONCE .ROUTE ; Start 09/29/17 at 08:54; Stop 09/29/17 at 08:55; Status DC Midazolam HCl (Versed Inj) 2 mg STK-MED ONCE .ROUTE ; Start 09/29/17 at 08:54; Stop 09/29/17 at 08:55; Status DC Morphine Sulfate (*morphine INJ PERIprocedure ONLY) 4 mg STK-MED ONCE .ROUTE Last administered on 09/29/17at 09:02; Start 09/29/17 at 09:02; Stop 09/29/17 at 09:03; Status DC Miscellaneous Information ([facility] Nursing Information) ALL NURSING DEPARTME... UNSCH PRN .XX SEE LABEL COMMENTS; Start 09/29/17 at 09:30; Stop 09/30/17 at 09: 29; Status DC Miscellaneous Information ([facility] Ordered Lab Info) SPECIFIC LAB TO BE DRAWN: VANCO TROUGH DATE TO BE [email or web address] ONCE ONCE .XX ; Start 09/30/17 at 16:45; Stop 09/30/17 at 16:46 A/P Assessment and Plan 1. Left great toe osteomyelitis with infected wound -continue with IV vancomycin, consult podiatry for further evaluation for surgical intervention. Consult infectious disease for further recommendations. Await final wound culture and blood cultures. Pain medication as needed.--Consult of infectious disease-- medication have been adjusted Consult vascular surgery Has been seen by podiatry SP LEFT HALLUX AMPUTATION 09-29 2. Diabetic mellitus type II -continue with Accu-Cheks with sliding scale insulin 3. Diabetic neuropathy- continue with gabapentin TIMES ADJUSTED TO HOW HE TAKES AT HOME 4. Chronic hypertension, essential continue with home antihypertensives. 5.DVT prophylaxis - Lovenox Pain control on medications for constipation DW RN AND PT ANTIBIOTICS PER ID DW RN AND PT Discharge Planning Pending clearance by podiatry and infectious disease and vascular surgery Shawn Murcia DO September 30, 2017 11:43
[2017-09-30 12:00] VITALS: BP 134/68; PULSE 69; RESP 18; TEMP 98; O2SAT 99
--- NOTE | 2017-09-30 13:33 | PD.POD ---
Subjective Pain score: 2 Remarks Doing well minimal pain no events overnight Past Med/Surg/Social History Social History Smoking Status: Never Smoker Objective Vital Signs Vital Signs Date Time Temp Pulse Resp B/P (MAP) Pulse Ox O2 Delivery O2 Flow Rate FiO2 09/30/17 12:00 98.0 69 18 134/68 (90) 99 09/30/17 08:00 98.0 67 16 143/71 (95) 99 09/30/17 07:00 Room Air 09/30/17 04:00 Room Air 09/30/17 04:00 98.3 70 20 123/70 (87) 96 09/30/17 00:00 Room Air 09/30/17 00:00 98.8 70 20 125/62 (83) 95 09/29/17 20:00 98.2 74 20 131/64 (86) 94 09/29/17 16:00 98.2 70 18 150/71 (97) 99 Coded Allergies: iodine (Verified Allergy, Intermediate, 09/27/17) got real sick levofloxacin (Verified Allergy, Intermediate, 09/27/17) severe headaches and fatigue with slight nausea sulfite (Verified Allergy, Intermediate, 09/27/17) nausea Medications and IVs Administered Medications Medications (Trade) Dose Ordered Sig/Ayad Route PRN Reason Start Time Stop Time Status Last Admin Dose Admin Sodium Chloride (NS Flush) 2 ml BID IV FLUSH 09/27/17 21:00 09/30/17 09:00 Acetaminophen (Tylenol) 500 mg Q4H PRN PO FEVER >101F 09/27/17 13:30 09/30/17 10:57 Acetaminophen/ Hydrocodone Bitart ([place] 5-325 Mg) 1 tab Q4H PRN PO PAIN SCALE 1 TO 5 09/27/17 13:30 09/29/17 21:54 Enoxaparin Sodium (Lovenox Inj) 40 mg Q24H SQ 09/27/17 15:00 09/29/17 15:34 Insulin Aspart (NovoLOG SUPPLEMENTAL SCALE) 1 ACHS SLIDING SCALE SQ 09/27/17 17:00 09/29/17 21:56 Vancomycin HCl 1500 mg/Sodium Chloride 515 ml @ 250 mls/hr Q12H IV 09/27/17 16:00 09/30/17 03:54 Duloxetine HCl (Cymbalta Dr) 30 mg BID PO 09/27/17 21:00 09/30/17 08:23 Enalapril Maleate (Vasotec) 5 mg DAILY PO 09/28/17 09:00 09/30/17 08:23 Metformin HCl (Glucophage) 500 mg BIDPC PO 09/27/17 18:00 09/30/17 08:23 Atorvastatin Calcium (Lipitor) 10 mg EVERY OTHER DAY PO 09/29/17 09:00 09/29/17 09:44 Other Results Laboratory Tests Test 09/29/17 07:26 09/30/17 05:39 White Blood Count 6.9 TH/MM3 7.6 TH/MM3 Red Blood Count 3.82 MIL/MM3 3.94 MIL/MM3 Hemoglobin 11.2 GM/DL 11.4 GM/DL Hematocrit 32.8 % 33.7 % Mean Corpuscular Volume 85.8 FL 85.5 FL Mean Corpuscular Hemoglobin 29.2 PG 28.8 PG Mean Corpuscular Hemoglobin Concent 34.1 % 33.7 % Red Cell Distribution Width 14.5 % 14.8 % Platelet Count 272 TH/MM3 315 TH/MM3 Mean Platelet Volume 8.5 FL 8.2 FL Neutrophils (%) (Auto) 69.2 % 72.1 % Lymphocytes (%) (Auto) 19.2 % 17.4 % Monocytes (%) (Auto) 7.4 % 6.8 % Eosinophils (%) (Auto) 3.5 % 3.2 % Basophils (%) (Auto) 0.7 % 0.5 % Neutrophils # (Auto) 4.8 TH/MM3 5.5 TH/MM3 Lymphocytes # (Auto) 1.3 TH/MM3 1.3 TH/MM3 Monocytes # (Auto) 0.5 TH/MM3 0.5 TH/MM3 Eosinophils # (Auto) 0.2 TH/MM3 0.2 TH/MM3 Basophils # (Auto) 0.0 TH/MM3 0.0 TH/MM3 CBC Comment DIFF FINAL DIFF FINAL Differential Comment Laboratory Tests Test 09/29/17 07:26 09/30/17 05:39 Blood Urea Nitrogen 11 MG/DL 12 MG/DL Creatinine 0.67 MG/DL 0.73 MG/DL Random Glucose 121 MG/DL 120 MG/DL Total Protein 7.2 GM/DL 7.1 GM/DL Albumin 2.9 GM/DL 2.8 GM/DL Calcium Level 8.4 MG/DL 8.5 MG/DL Phosphorus Level 4.3 MG/DL 4.4 MG/DL Magnesium Level 2.1 MG/DL 2.0 MG/DL Alkaline Phosphatase 67 U/L 71 U/L Aspartate Amino Transf (AST/SGOT) 10 U/L 24 U/L Alanine Aminotransferase (ALT/SGPT) 18 U/L 26 U/L Total Bilirubin 0.3 MG/DL 0.4 MG/DL Sodium Level 140 MEQ/L 140 MEQ/L Potassium Level 3.9 MEQ/L 3.9 MEQ/L Chloride Level 103 MEQ/L 103 MEQ/L Carbon Dioxide Level 28.0 MEQ/L 28.9 MEQ/L Anion Gap 9 MEQ/L 8 MEQ/L Estimat Glomerular Filtration Rate 119 ML/MIN 108 ML/MIN Hemoglobin A1c 6.3 % Free Thyroxine 0.98 NG/DL Thyroid Stimulating Hormone 3rd Gen 1.480 uIU/ML Microbiology Date/Time Source Procedure Growth Status 09/29/17 08:30 Wound Foot Acid Fast Stain Pending Received 09/29/17 08:30 Wound Foot Mycobacterial Culture Pending Received 09/29/17 08:30 Wound Foot Fungal Smear - Final NO FUNGAL ELEMENTS SEEN. Resulted 09/29/17 08:30 Wound Foot Fungal Culture Pending Resulted 09/29/17 08:30 Wound Foot Gram Stain - Final Resulted 09/29/17 08:30 Wound Foot Wound Culture Pending Resulted Exam-Podiatry Remarks Left lower extremity: Hallux amputation site well coapted no active bleeding [place] drain intact, very mild redness noted of the incisional area, upon removing drain no active bleeding. Good capillary fill time to dorsal plantar flap. Lesser digits 2 through 5 with good capillary fill time. Sensation decreased to light touch consistent with baseline, good range of motion of the ankle. Physical Exam General appearance: comfortable Nutritional status: normal Orientation: alert and oriented x3 Head: normocephalic/atraumatic Chest appearance: normal Respiratory effort: FINDINGS: normal Assessment & Plan A/P Left hallux ulceration with osteomyelitis. Postop day 1 status post left hallux amputation. Patient permitted heel weight-bear, bandage change. Patient will be evaluated within the next 1-2 days for incisional erythema. Awaiting final deep culture before disposition of antibiotic recommendation. Anticipate discharge Sunday. Qamar Delgado DPM September 30, 2017 13:33
[2017-09-30] MEDS: ENOXAPARIN SODIUM 40 MG/0.4 ML SYRINGE SQ SCH (14:48)
--- NOTE | 2017-09-30 15:05 | PD.CAR.PN ---
CVT Progress Note Subjective/Hospital Course: 09/28/2017 Patient seen Full consult dictated Will follow Thanks J 09/30/2017 As noted in my original consultation CTA with runoff is pending and upon evaluation of the same will decide which way to go Based on the clinical exam I do not believe the patient has a significant degree of vascular disease that would require intervention Objective: Vital Signs Date Time Temp Pulse Resp B/P (MAP) Pulse Ox O2 Delivery O2 Flow Rate FiO2 09/30/17 12:00 98.0 69 18 134/68 (90) 99 09/30/17 08:00 98.0 67 16 143/71 (95) 99 09/30/17 07:00 Room Air 09/30/17 04:00 Room Air 09/30/17 04:00 98.3 70 20 123/70 (87) 96 09/30/17 00:00 Room Air 09/30/17 00:00 98.8 70 20 125/62 (83) 95 09/29/17 20:00 98.2 74 20 131/64 (86) 94 09/29/17 16:00 98.2 70 18 150/71 (97) 99 Labs: Laboratory Tests Test 09/30/17 05:39 White Blood Count 7.6 TH/MM3 (4.0-11.0) Red Blood Count 3.94 MIL/MM3 (4.50-5.90) Hemoglobin 11.4 GM/DL (13.0-17.0) Hematocrit 33.7 % (39.0-51.0) Mean Corpuscular Volume 85.5 FL (80.0-100.0) Mean Corpuscular Hemoglobin 28.8 PG (27.0-34.0) Mean Corpuscular Hemoglobin Concent 33.7 % (32.0-36.0) Red Cell Distribution Width 14.8 % (11.6-17.2) Platelet Count 315 TH/MM3 (150-450) Mean Platelet Volume 8.2 FL (7.0-11.0) Neutrophils (%) (Auto) 72.1 % (16.0-70.0) Lymphocytes (%) (Auto) 17.4 % (9.0-44.0) Monocytes (%) (Auto) 6.8 % (0.0-8.0) Eosinophils (%) (Auto) 3.2 % (0.0-4.0) Basophils (%) (Auto) 0.5 % (0.0-2.0) Neutrophils # (Auto) 5.5 TH/MM3 (1.8-7.7) Lymphocytes # (Auto) 1.3 TH/MM3 (1.0-4.8) Monocytes # (Auto) 0.5 TH/MM3 (0-0.9) Eosinophils # (Auto) 0.2 TH/MM3 (0-0.4) Basophils # (Auto) 0.0 TH/MM3 (0-0.2) CBC Comment DIFF FINAL Differential Comment Blood Urea Nitrogen 12 MG/DL (7-18) Creatinine 0.73 MG/DL (0.60-1.30) Random Glucose 120 MG/DL (74-106) Total Protein 7.1 GM/DL (6.4-8.2) Albumin 2.8 GM/DL (3.4-5.0) Calcium Level 8.5 MG/DL (8.5-10.1) Phosphorus Level 4.4 MG/DL (2.5-4.9) Magnesium Level 2.0 MG/DL (1.5-2.5) Alkaline Phosphatase 71 U/L (45-117) Aspartate Amino Transf (AST/SGOT) 24 U/L (15-37) Alanine Aminotransferase (ALT/SGPT) 26 U/L (12-78) Total Bilirubin 0.4 MG/DL (0.2-1.0) Sodium Level 140 MEQ/L (136-145) Potassium Level 3.9 MEQ/L (3.5-5.1) Chloride Level 103 MEQ/L (98-107) Carbon Dioxide Level 28.9 MEQ/L (21.0-32.0) Anion Gap 8 MEQ/L (5-15) Estimat Glomerular Filtration Rate 108 ML/MIN (>89) Result Diagram: 09/30/17 0539 09/30/17 0539 Chuck Hawkins MD September 30, 2017 15:05
[2017-09-30 16:00] VITALS: BP 143/71; PULSE 74; RESP 18; TEMP 97.9; O2SAT 94
[2017-09-30] MEDS ORDERED: PHARMACY ORDERED LAB ONE (16:45)
[2017-09-30 20:00] VITALS: BP 134/72; PULSE 82; RESP 17; TEMP 98.3; O2SAT 95
[2017-09-30] MEDS ORDERED: Vancomycin Consult Pharmacy 1 EA OTHER SCH (20:00)
[2017-10-01] VITALS: BP 135/70; PULSE 82; RESP 17; TEMP 98.6; O2SAT 96
[2017-10-01] MEDS: ACETAMINOPHEN/HYDROcodone 325 MG/5 MG TAB PO PRN ×2 (00:12→16:35)
[2017-10-01] MEDS: VANCOMYCIN INJ 1,500 MG in SODIUM CHLORID 0.9% 500 ML INJ 500 ML IV SCH ×2 (03:37→16:31)
[2017-10-01 04:00] VITALS: BP 126/69; PULSE 68; RESP 16; TEMP 98.7; O2SAT 96
[2017-10-01] MEDS: INSULIN ASPART SUPPLEMENTAL SCALE SQ SCH ×4 (08:00→20:12)
[2017-10-01 08:03] VITALS: BP 131/77; PULSE 69; RESP 17; TEMP 97.2; O2SAT 93
[2017-10-01] MEDS: DULoxetine HCl DR 30 MG CAP PO SCH ×2 (09:04→20:10)
[2017-10-01] MEDS: ATORVASTATIN 10 MG TAB PO SCH (09:04)
[2017-10-01] MEDS: GABAPENTIN 300 MG CAP PO SCH ×3 (09:04→20:10)
[2017-10-01] MEDS: ENALAPRIL MALEATE 5 MG TAB PO SCH (09:04)
[2017-10-01] MEDS: metFORMIN HCL 500 MG TAB PO SCH (09:05)
[2017-10-01] MEDS: SODIUM CHLORIDE 0.9% FLUSH 10 ML FLUSH IV FLUSH SCH ×2 (09:05→20:11)
--- NOTE | 2017-10-01 10:34 | HHI.IDPN ---
Subjective Subjective Remarks Patient seen and examined on behalf of Dr. Helm This is a 67 year old white male with a PMHX of type 2 diabetes mellitus with neuropathy and hypertension who presented to the emergency room with worsening left toe swelling, redness along with some yellowish malodorous drainage over the past 48 hours despite seeing his primary care physician and having a debridement. Infectious disease has been consulted for evaluation and management of left great toe infection and concern for osteomyelitis. Patient seen and examined. He reports he first injured his left toe over 2 years ago when he stepped on a nail and was seen by Dr. Colvin. At that point, his left toe wound was being managed by podiatry and a referral was given to Dr. Lemon. Dr. Lemon had debrided the area and 14 weeks ago had placed the left foot in an open cast and ordered special insoles for him. 2 weeks ago the left toe became red and swollen and Dr. Lemon performed further debridement and placed the patient on Levaquin. Patient was only able to take 3 days of the Levaquin due to side effects of fatigue and headache. He contacted Dr. Lemon's office who scheduled him an appointment for today. Patient reports that he developed fever as high as 102 and chills with worsening of the left foot with increased drainage from the toe with associated edema and erythema. He at that point went to see his primary care physician Dr. Massey however had one of his partners Dr. Dumont saw him who performed a debridement and he was given oral clindamycin and a IM injection of an antibiotic. Patient states the toe and foot improved a minimal amount but he was contacted by his PCP's office who recommended he come into the ED. His wound culture + MRSA. Blood CX with no growth. MRI left foot concerning for osteomyelitis. Podiatry is following the patient and recommending surgical intervention. Patient has been afebrile. He does not have leukocytosis. ESR greater than 140. Patient is currently on IV Clindamycin and Vancomycin. Notes reviewed s/p Left hallux amputation by Dr. Delgado 09/29 Vascular following, CTA runoff pending patient states he is feeling well + constipation no fever or chills no rash no N/V no diarrhea no dysuria afebrile MRI abnormal marrow edema with marrow enhancement enhancement involving the distal phalanx of the first digit. This is concerning for osteomyelitis Wound cx 09/27 +MRSA and enterococcus faecalis Intraop cx 09/29 no growth thus far path pending BCX no growth x 3 days Antibiotics IV Vancomycin Lines PIV with no e/o infection Past Medical History Diabetes mellitus Hypertension Hyperlipidemia (Nurys Lizama) Allergies: Coded Allergies: iodine (Verified Allergy, Intermediate, 09/27/17) got real sick levofloxacin (Verified Allergy, Intermediate, 09/27/17) severe headaches and fatigue with slight nausea sulfite (Verified Allergy, Intermediate, 09/27/17) nausea Objective . Vital Signs Date Time Temp Pulse Resp B/P (MAP) Pulse Ox O2 Delivery O2 Flow Rate FiO2 10/01/17 08:03 97.2 69 17 131/77 (95) 93 10/01/17 07:00 Room Air 10/01/17 04:00 98.7 68 16 126/69 (88) 96 10/01/17 04:00 Room Air 10/01/17 00:12 Room Air 10/01/17 00:00 98.6 82 17 135/70 (91) 96 09/30/17 20:00 98.3 82 17 134/72 (92) 95 09/30/17 20:00 Room Air 09/30/17 16:00 97.9 74 18 143/71 (95) 94 09/30/17 12:00 98.0 69 18 134/68 (90) 99 . Laboratory Tests Test 09/30/17 05:39 White Blood Count 7.6 TH/MM3 Red Blood Count 3.94 MIL/MM3 Hemoglobin 11.4 GM/DL Hematocrit 33.7 % Mean Corpuscular Volume 85.5 FL Mean Corpuscular Hemoglobin 28.8 PG Mean Corpuscular Hemoglobin Concent 33.7 % Red Cell Distribution Width 14.8 % Platelet Count 315 TH/MM3 Mean Platelet Volume 8.2 FL Neutrophils (%) (Auto) 72.1 % Lymphocytes (%) (Auto) 17.4 % Monocytes (%) (Auto) 6.8 % Eosinophils (%) (Auto) 3.2 % Basophils (%) (Auto) 0.5 % Neutrophils # (Auto) 5.5 TH/MM3 Lymphocytes # (Auto) 1.3 TH/MM3 Monocytes # (Auto) 0.5 TH/MM3 Eosinophils # (Auto) 0.2 TH/MM3 Basophils # (Auto) 0.0 TH/MM3 CBC Comment DIFF FINAL Differential Comment Laboratory Tests Test 09/30/17 05:39 Blood Urea Nitrogen 12 MG/DL Creatinine 0.73 MG/DL Random Glucose 120 MG/DL Total Protein 7.1 GM/DL Albumin 2.8 GM/DL Calcium Level 8.5 MG/DL Phosphorus Level 4.4 MG/DL Magnesium Level 2.0 MG/DL Alkaline Phosphatase 71 U/L Aspartate Amino Transf (AST/SGOT) 24 U/L Alanine Aminotransferase (ALT/SGPT) 26 U/L Total Bilirubin 0.4 MG/DL Sodium Level 140 MEQ/L Potassium Level 3.9 MEQ/L Chloride Level 103 MEQ/L Carbon Dioxide Level 28.9 MEQ/L Anion Gap 8 MEQ/L Estimat Glomerular Filtration Rate 108 ML/MIN Microbiology Date/Time Source Procedure Growth Status 09/29/17 08:30 Wound Foot Acid Fast Stain Pending Received 09/29/17 08:30 Wound Foot Mycobacterial Culture Pending Received 09/29/17 08:30 Wound Foot Fungal Smear - Final NO FUNGAL ELEMENTS SEEN. Resulted 09/29/17 08:30 Wound Foot Fungal Culture Pending Resulted 09/29/17 08:30 Wound Foot Gram Stain - Final Resulted 09/29/17 08:30 Wound Foot Wound Culture - Preliminary Resulted Imaging Last Impressions Foot MRI 09/28/17 0000 Signed Impressions: Service Date/Time: Thursday, September 28, 2017 08:09 - CONCLUSION: 1. The examination demonstrates abnormal marrow edema with marrow enhancement enhancement involving the distal phalanx of the first digit. This is concerning for osteomyelitis. The proximal phalanx of the first digit appears intact. Jameel Wong MD Carotid Artery Ultrasound 09/28/17 0000 Signed Impressions: Service Date/Time: Thursday, September 28, 2017 19:46 - CONCLUSION: Mild plaque without significant stenosis. Silvano Tenorio MD Toe X-Ray 09/27/17 1112 Signed Impressions: Service Date/Time: September 11:47 - CONCLUSION: Findings are characteristic of osteomyelitis first distal phalanx. Doe Fernandes MD Abdomen X-Ray 09/27/17 0000 Signed Impressions: Service Date/Time: September 22:33 - CONCLUSION: Non-ferromagnetic penile implant. Alcon Gallagher Jr., MD Physical Exam GENERAL: This is a well-nourished, well-developed patient, in no apparent distress. Awake and alert. Sitting up in bed. SKIN: Warm and dry. No generalized rash. HEAD: Atraumatic. Normocephalic. No temporal or scalp tenderness. EYES: Pupils equal round and reactive. Extraocular motions intact. No scleral icterus. No injection or drainage. ENT: Nose without bleeding or purulent drainage. Throat without erythema, tonsillar hypertrophy or exudate. Uvula midline. Airway patent. NECK: Trachea midline. No JVD or lymphadenopathy. Supple, nontender, no meningeal signs. CARDIOVASCULAR: Regular rate and rhythm without murmurs, gallops, or rubs. RESPIRATORY: Clear to auscultation. Breath sounds equal bilaterally. No wheezes , rales, or rhonchi. GASTROINTESTINAL: Abdomen soft, non-tender, nondistended. No hepato-splenomegaly , or palpable masses. No guarding. MUSCULOSKELETAL: Extremities without clubbing or cyanosis. No joint tenderness, effusion, or edema noted. No calf tenderness. LLE with trace edema. s/p Left hallux amputation, in postop dressing, did not remove, dressing C/D/I NEUROLOGICAL: Awake and alert. Cranial nerves II through XII grossly intact. Motor and sensory grossly within normal limits. No focal neurologic finding. Normal speech. PSYCHIATRIC: Calm and pleasant PIV with no e/o infection (Nurys Lizama) Assessment & Plan Remarks Left foot MRSA and Enterococcus cellulitis Left diabetic foot infection with suspected osteomyelitis of the distal hallux + MRSA and Enterococcus faecalis -podiatry following. s/p Left hallux amputation -vascular sx following. CTA runoff pending. Echo pending. DM Diabetic neuropathy HTN RECOMMENDATIONS: Continue on IV Vancomycin Follow up on final wound culture and pathology results Follow up on CTA runoff and echo results. Continue to monitor clinically Further recommendations to follow (Nurys Lizama) Remarks The exam, history, and the medical decision-making described in the above note were completed with the assistance of the mid-level provider. I reviewed and agree with the findings presented. I attest that I had a [id number] encounter with the patient on the same day, and personally performed and documented my assessment and findings in the medical record. Continue IV vanco Follow path Follow cultures If path margins clear will dw Podiatry if oral antibiotics ok depending on vascular supply to cover for me 10/02/2017 to 10/04/2017. (Jenniffer Helm MD) Nurys Lizama October 01, 2017 10:34 Jenniffer Helm MD October 01, 2017 13:23
--- NOTE | 2017-10-01 10:58 | HHI.PR ---
Subjective Remarks in no acute distress. pain is controlled. afebrile. no new complaints. Objective Vitals Vital Signs Date Time Temp Pulse Resp B/P (MAP) Pulse Ox O2 Delivery O2 Flow Rate FiO2 10/01/17 08:03 97.2 69 17 131/77 (95) 93 10/01/17 07:00 Room Air 10/01/17 04:00 98.7 68 16 126/69 (88) 96 10/01/17 04:00 Room Air 10/01/17 00:12 Room Air 10/01/17 00:00 98.6 82 17 135/70 (91) 96 09/30/17 20:00 98.3 82 17 134/72 (92) 95 09/30/17 20:00 Room Air 09/30/17 16:00 97.9 74 18 143/71 (95) 94 09/30/17 12:00 98.0 69 18 134/68 (90) 99 I/O 09/30/17 09/30/17 09/30/17 10/01/17 10/01/17 10/01/17 06:59 14:59 22:59 06:59 14:59 22:59 Intake Total 925 ml 480 ml 450 ml Output Total 900 ml Balance 925 ml -420 ml 450 ml Intake Oral 400 ml 480 ml 450 ml IV Total 525 ml Output Urine Total 900 ml # Voids 4 4 # Bowel Movements 1 Result Diagram: 09/30/17 0539 09/30/17 0539 Imaging Last Impressions Foot MRI 09/28/17 0000 Signed Impressions: Service Date/Time: Thursday, September 28, 2017 08:09 - CONCLUSION: 1. The examination demonstrates abnormal marrow edema with marrow enhancement enhancement involving the distal phalanx of the first digit. This is concerning for osteomyelitis. The proximal phalanx of the first digit appears intact. Jameel Wong MD Carotid Artery Ultrasound 09/28/17 0000 Signed Impressions: Service Date/Time: Thursday, September 28, 2017 19:46 - CONCLUSION: Mild plaque without significant stenosis. Silvano Tenorio MD Toe X-Ray 09/27/17 1112 Signed Impressions: Service Date/Time: September 11:47 - CONCLUSION: Findings are characteristic of osteomyelitis first distal phalanx. K. González Fernandes MD Abdomen X-Ray 09/27/17 0000 Signed Impressions: Service Date/Time: September 22:33 - CONCLUSION: Non-ferromagnetic penile implant. Alcon Gallagher Jr., MD Objective Remarks GENERAL: This is a well-nourished, well-developed patient, in no apparent distress. CARDIOVASCULAR: Regular rate and regular rhythm without murmurs, gallops, or rubs. RESPIRATORY: Clear to auscultation. Breath sounds equal bilaterally. No wheezes , rales, or rhonchi. GASTROINTESTINAL: Abdomen soft, non-tender, nondistended. Normal, active bowel sounds MUSCULOSKELETAL: left foot covered with clean dressing. NEURO: Alert & Oriented x4 to person, place, time, situation. Moves all ext x4 Procedures 09/29/2017 PREOPERATIVE DIAGNOSES: Left hallux ulcer, osteomyelitis, hammertoe contracture. POSTOPERATIVE DIAGNOSES: Left hallux ulcer, osteomyelitis, hammertoe contracture. PROCEDURE PERFORMED: Left hallux amputation. FINDINGS: Clinically clear margin at first metatarsal head with no signs of infection or necrosis, hard bony cortex noted. COMPLICATIONS: None. SPECIMEN: Left hallux for pathological analysis and deep culture at the amputation margin microbial analysis. ANESTHESIA: General. ESTIMATED BLOOD LOSS: Less than 10 mL. DRAINS: Tremaine. TOURNIQUET TIME: 20 minutes at a setting at 250 mmHg about the patient's ankle. PLAN OF ACTIVITY: PACU and then return to floor. Continue IV antibiotics and continue vascular workup and evaluation of wound healing. JUSTIFICATION OF PROCEDURE: A 67-year-old male, chronic hallux hammertoe and ulcer. The patient was admitted. MRI showed osteomyelitis. Due to the long-term nature of the patient's wound, the deformity and now bone involvement, hallux amputation indicated. Vascular clearance obtained; however, further workup is needed to be certain of healing. No guarantees given or implied regarding the outcome. The patient understood the risks and benefits including, but not limited to possible need for long-term wound care, further debridement, partial foot amputation, possible loss of limb. PROCEDURE IN DETAIL: Under mild sedation, the patient was brought into the operating room, placed on the operating table in supine position. Following the induction of general anesthesia, the left lower extremity was scrubbed, prepped and draped in the usual aseptic fashion. The foot was elevated and exsanguinated and the previously placed mid calf tourniquet inflated to 250 mmHg. The foot was examined. There was noted to be a full-thickness ulceration at the distal aspect of the left hallux with purulent necrotic tissue, hypergranulation tissue involving the near complete entire distal aspect of the hallux. Next, a fish mouth type incision was made at the base of the proximal phalanx, first MPJ area. Sharp and blunt dissection was carried down through epidermis and dermal junction. Venous and arterial structures that were encountered were bovied and ligated. Further sharp and blunt dissection was carried down to the first MPJ joint capsule. Sharp disarticulation took place at this level. The first metatarsal head was examined. It was noted to be free of any cortical deficit. Mild arthritis noted, but no obvious signs of clinical osteomyelitis. A culture was taken at the bone and the soft tissue at this area. The digit was then passed off the field for pathological analysis. The wound was flushed with copious amounts of normal saline. Deep closure took place utilizing Vicryl. Skin was closed utilizing nylon. A Tremaine drain was placed through the apices of the wound. A bulky bandage applied. Upon relieving the tourniquet, there was a prompt hyperemic response to all digits without any delayed capillary fill time. Digits 2 through 5 intact. The patient recovered nicely in PACU. We will continue to monitor the wound. Bandage change within the next 24 hours. Continue vascular workup and evaluation. Recommendation at least a few more days of IV antibiotics, possibly switching to outpatient oral antibiotics pending deep culture and clinical progress. Qamar Delgado DPM Medications and IVs Inpatient Medications Acetaminophen (Tylenol) 500 mg Q4H PRN PO FEVER >101F Last administered on at 10:57; Start 09/27/17 at 13:30 Acetaminophen/ Hydrocodone Bitart (Lockhart 5-325 Mg) 1 tab Q4H PRN PO PAIN SCALE 1 TO 5 Last administered on 10/01/17at 00:12; Start 09/27/17 at 13:30 Acetaminophen/ Hydrocodone Bitart (Lockhart 7.5-325 Mg) 1 tab Q4H PRN PO PAIN SCALE 6 TO 10; Start 09/27/17 at 13:30 Atorvastatin Calcium (Lipitor) 10 mg EVERY OTHER DAY PO Last administered on at 09:04; Start 09/29/17 at 09:00 Bisacodyl (Dulcolax Supp) 10 mg DAILY PRN RECTAL SEVERE CONSITIPATION; Start at 13:45 Chlorhexidine Gluconate (Chlorhexidine 2% Cloth) 3 pack [employer]IENT SALES AND SERVICE OFFICER PRN TOPICAL SEE LABEL COMMENTS; Start 09/28/17 at 22:30; Stop 10/01/17 at 22:29 Clindamycin Phosphate 900 mg/ Sodium Chloride 106 ml @ 200 mls/hr ONCE ONCE IV Last administered on 09/27/17at 11:36; Start 09/27/17 at 11:15; Stop at 11:46; Status DC Clindamycin/ Sodium Chloride 50 ml @ 100 mls/hr Q8H IV Last administered on at 12:29; Start 09/27/17 at 21:00; Stop 09/28/17 at 14:41; Status DC Dextrose (D50w (Vial) Inj) 50 ml UNSCH PRN IV PUSH HYPOGLYCEMIA-SEE COMMENTS; Start 09/27/17 at 13:30 Diphenhydramine HCl (Benadryl) 50 mg ONCE ONCE PO ; Start 10/02/17 at 09:00; Stop 10/02/17 at 09:01 Duloxetine HCl (Cymbalta Dr) 30 mg BID PO Last administered on 10/01/17at 09:04 ; Start 09/27/17 at 21:00 Enalapril Maleate (Vasotec) 5 mg DAILY PO Last administered on 10/01/17at 09:04 ; Start 09/28/17 at 09:00 Enalaprilat (Vasotec Inj) 1.25 mg Q6H PRN IV PUSH SBP> OR = 180, DBP> OR = 100 ; Start 09/27/17 at 14:45 Enoxaparin Sodium (Lovenox Inj) 40 mg Q24H SQ Last administered on 09/30/17at 14 :48; Start 09/27/17 at 15:00 Gabapentin (Neurontin) 600 mg TID@0900,1500,2100 PO Last administered on at 09:04; Start 09/30/17 at 15:00 Glucagon (Glucagon Inj) 1 mg UNSCH PRN OTHER HYPOGLYCEMIA-SEE COMMENTS; Start 09/27/17 at 13:30 Influenza Virus Vaccine (Flu (Quadrivalent) Vaccine Inj) 0.5 ml ONCE ONCE IM ; Start 09/28/17 at 10:00; Stop 09/28/17 at 10:01; Status DC Insulin Aspart (NovoLOG SUPPLEMENTAL SCALE) 1 ACHS SLIDING SCALE SQ Last administered on 09/30/17at 20:49; Start 09/27/17 at 17:00 Ketorolac Tromethamine (Toradol Inj) 30 mg ONCE ONCE IVP Last administered on 09/27/17at 11:35; Start 09/27/17 at 11:15; Stop 09/27/17 at 11:20; Status DC Lactated Ringer's 1,000 ml @ 30 mls/hr Q24H PRN IV SEE LABEL COMMENTS; Start at 22:30; Stop 10/01/17 at 22:29 Lactulose (Lactulose Liq) 30 ml DAILY PRN PO SEVERE CONSITIPATION; Start at 13:45 Magnesium Hydroxide (Milk Of Magnesia Liq) 30 ml Q12H PRN PO Mild constipation ; Start 09/27/17 at 13:45 Metformin HCl (Glucophage) 500 mg BIDPC PO Last administered on 10/01/17at 09:05 ; Start 09/27/17 at 18:00 Metoprolol Tartrate (Lopressor) 25 mg CLIENT SALES AND SERVICE OFFICER PRN PO SEE LABEL COMMENTS; Start 09/28/17 at 22:30; Stop 10/01/17 at 22:29 Miscellaneous Information ([facility] Nursing Information) ALL NURSING DEPARTME... UNSCH PRN .XX SEE LABEL COMMENTS; Start 09/29/17 at 09:30; Stop 09/30/17 at 09: 29; Status DC Miscellaneous Information ([facility] Ordered Lab Info) SPECIFIC LAB TO BE LEELA... ONCE ONCE .XX ; Start 10/02/17 at 15:45; Stop 10/02/17 at 15:46 Pharmacy Profile Note 0 ml @ 0 mls/hr UNSCH OTHER ; Start 09/30/17 at 20:00 Pneumococcal Polyvalent Vaccine (Pneumovax-23 Inj) 25 mcg ONCE ONCE IM ; Start 09/28/17 at 10:00; Stop 09/28/17 at 10:01; Status DC Prednisone (Deltasone) 50 mg Q6H PO ; Start 10/01/17 at 21:00; Stop 10/02/17 at 09:01 Sennosides (Senokot) 17.2 mg Q12H PRN PO Moderate constipation; Start 09/27/17 at 13:45 Sodium Chloride 500 ml @ 30 mls/hr [id number] PRN IV SEE LABEL COMMENTS; Start at 22:30; Stop 10/01/17 at 22:29 Sodium Chloride (NS Flush) 2 ml UNSCH PRN IV FLUSH FLUSH AFTER USING IV ACCESS ; Start 09/27/17 at 13:30 Vancomycin HCl 1500 mg/Sodium Chloride 515 ml @ 250 mls/hr Q12H IV Last administered on 10/01/17at 03:37; Start 09/27/17 at 16:00 A/P Assessment and Plan A/P 1. Left great toe osteomyelitis with infected wound - s/p left hallux amputation. on IV Vancomycin. ID, Podiatry and Vascular surgery following. continue with pain control. 2. Diabetic mellitus type II -continue with Accu-Cheks with sliding scale insulin 3. Diabetic neuropathy- continue with gabapentin . 4. Chronic hypertension, essential continue with home antihypertensives. 5.DVT prophylaxis - Lovenox Discharge Planning awaiting bone biopsy/ ID/podiatry and vascular surgery follow-up/ recommendations. Merrick Lam MD October 01, 2017 10:58
[2017-10-01 12:03] VITALS: BP 122/69; PULSE 69; RESP 17; TEMP 98.5; O2SAT 99
--- NOTE | 2017-10-01 14:27 | ECHRPT ---
Indication: vegetations CONCLUSIONS The transthoracic study is normal by two-dimensional, color flow imaging and Doppler interrogation. BP: / HR: Rhythm: MEASUREMENTS (Male / Female) Normal Values Technical Quality: 2D ECHO LV Diastolic Diameter PLAX 5.0 cm 4.2 - 5.9 / 3.9 - 5.3 cm LV Systolic Diameter PLAX 3.6 cm IVS Diastolic Thickness 0.9 cm 0.6 - 1.0 / 0.6 - 0.9 cm LVPW Diastolic Thickness 1.1 cm 0.6 - 1.0 / 0.6 - 0.9 cm LV Relative Wall Thickness 0.4 RV Internal Dim ED PLAX 2.2 cm M-MODE Aortic Root Diameter MM 3.2 cm LA Systolic Diameter MM 4.0 cm LA Ao Ratio MM 1.3 AV Cusp Separation MM 1.9 cm DOPPLER Mitral E Point Velocity 96.4 cm/s Mitral A Point Velocity 88.2 cm/s Mitral E to A Ratio 1.1 FINDINGS LEFT VENTRICLE Normal left ventricular size and wall thickness. The left ventricular systolic function is normal wi th an estimated ejection fraction in the range of 60-65%. Left ventricular diastolic function parameters a re normal. RIGHT VENTRICLE Normal right ventricular size and systolic function. LEFT ATRIUM The left atrial size is normal. RIGHT ATRIUM The right atrial size is normal. ATRIAL SEPTUM Normal atrial septal thickness without atrial level shunting by limited color doppler interrogation. AORTA The aortic root and proximal ascending aorta are not well visualized. MITRAL VALVE Structurally normal mitral valve. No mitral valve stenosis or regurgitation. AORTIC VALVE Trileaflet aortic valve. No aortic valve stenosis or regurgitation. TRICUSPID VALVE Structurally normal tricuspid valve. No tricuspid valve stenosis or regurgitation. PULMONARY VALVE No pulmonary valve regurgitation or stenosis. VESSELS The inferior vena cava is normal in size. PERICARDIUM No pericardial effusion. Gregorio Soto MD (Electronically Signed) Final Date:01 Oct 2017 14:26
[2017-10-01 16:00] VITALS: BP 154/72; PULSE 75; RESP 18; TEMP 99.2; O2SAT 97
[2017-10-01] MEDS: ENOXAPARIN SODIUM 40 MG/0.4 ML SYRINGE SQ SCH (16:31)
[2017-10-01 20:00] VITALS: BP 138/82; PULSE 79; RESP 17; TEMP 98.2; O2SAT 99
[2017-10-01] MEDS: predniSONE 50 MG TAB PO SCH (20:10)
--- NOTE | 2017-10-01 21:09 | HHI.PR ---
Subjective Remarks Patient seen bedside. Eager to go home. Denies any N,V,F,Ch. Objective Vital Signs Date Time Temp Pulse Resp B/P (MAP) Pulse Ox O2 Delivery O2 Flow Rate FiO2 10/01/17 17:35 18 10/01/17 16:00 99.2 75 18 154/72 (99) 97 10/01/17 12:03 98.5 69 17 122/69 (86) 99 10/01/17 08:03 97.2 69 17 131/77 (95) 93 10/01/17 07:00 Room Air 10/01/17 04:00 98.7 68 16 126/69 (88) 96 10/01/17 04:00 Room Air 10/01/17 00:12 Room Air 10/01/17 00:00 98.6 82 17 135/70 (91) 96 I/O 09/30/17 09/30/17 09/30/17 10/01/17 10/01/17 10/01/17 07:00 15:00 23:00 07:00 15:00 23:00 Intake Total 925 ml 480 ml 450 ml 960 ml Output Total 900 ml 600 ml Balance 925 ml -420 ml 450 ml 360 ml Intake Oral 400 ml 480 ml 450 ml 960 ml IV Total 525 ml Output Urine Total 900 ml 600 ml # Voids 4 4 2 # Bowel Movements 1 Result Diagram: 09/30/17 0539 09/30/17 0539 Imaging Last Impressions Foot MRI 09/28/17 0000 Signed Impressions: Service Date/Time: Thursday, September 28, 2017 08:09 - CONCLUSION: 1. The examination demonstrates abnormal marrow edema with marrow enhancement enhancement involving the distal phalanx of the first digit. This is concerning for osteomyelitis. The proximal phalanx of the first digit appears intact. Jameel Wong MD Carotid Artery Ultrasound 09/28/17 0000 Signed Impressions: Service Date/Time: Thursday, September 28, 2017 19:46 - CONCLUSION: Mild plaque without significant stenosis. Silvano Tenorio MD Toe X-Ray 09/27/17 1112 Signed Impressions: Service Date/Time: September 11:47 - CONCLUSION: Findings are characteristic of osteomyelitis first distal phalanx. K. González Fernandes MD Abdomen X-Ray 09/27/17 0000 Signed Impressions: Service Date/Time: September 22:33 - CONCLUSION: Non-ferromagnetic penile implant. Alcon Gallagher Jr., MD Other Results Microbiology Date/Time Source Procedure Growth Status 09/27/17 11:25 Blood Peripheral Aerobic Blood Culture - Preliminary NO GROWTH IN 4 DAYS Resulted 09/27/17 11:25 Blood Peripheral Anaerobic Blood Culture - Preliminary NO GROWTH IN 4 DAYS Resulted 09/29/17 08:30 Wound Foot Acid Fast Stain Pending Received 09/29/17 08:30 Wound Foot Mycobacterial Culture Pending Received Objective Remarks Incision to left hallux with skin well coapted and sutures intact. Mild surrounding erythema. Sanguinous drainage noted on dressing. No fluctuance or crepitus noted. Medications and IVs Current Medications Medications (Trade) Dose Ordered Sig/Ayad Route Start Time Stop Time Status Last Admin (NS Flush) 2 ml BID IV FLUSH 09/27/17 21:00 10/01/17 20:11 (NS Flush) 2 ml UNSCH PRN IV FLUSH 09/27/17 13:30 (Tylenol) 500 mg Q4H PRN PO 09/27/17 13:30 09/30/17 10:57 ([place] 5-325 Mg) 1 tab Q4H PRN PO 09/27/17 13:30 10/01/17 16:35 ([place] 7.5-325 Mg) 1 tab Q4H PRN PO 09/27/17 13:30 (Lovenox Inj) 40 mg Q24H SQ 09/27/17 15:00 10/01/17 16:31 (D50w (Vial) Inj) 50 ml UNSCH PRN IV PUSH 09/27/17 13:30 (Glucagon Inj) 1 mg UNSCH PRN OTHER 09/27/17 13:30 (NovoLOG SUPPLEMENTAL SCALE) 1 ACHS SLIDING SCALE SQ 09/27/17 17:00 09/30/17 20:49 (Milk Of Magnesia Liq) 30 ml Q12H PRN PO 09/27/17 13:45 (Senokot) 17.2 mg Q12H PRN PO 09/27/17 13:45 (Dulcolax Supp) 10 mg DAILY PRN RECTAL 09/27/17 13:45 (Lactulose Liq) 30 ml DAILY PRN PO 09/27/17 13:45 Vancomycin HCl 1500 mg/Sodium Chloride 515 ml @ 250 mls/hr Q12H IV 09/27/17 16:00 10/01/17 16:31 (Cymbalta Dr) 30 mg BID PO 09/27/17 21:00 10/01/17 20:10 (Vasotec) 5 mg DAILY PO 09/28/17 09:00 10/01/17 09:04 (Glucophage) 500 mg BIDPC PO 09/27/17 18:00 Future Hold 10/01/17 09:05 (Lipitor) 10 mg EVERY OTHER DAY PO 09/29/17 09:00 10/01/17 09:04 (Vasotec Inj) 1.25 mg Q6H PRN IV PUSH 09/27/17 14:45 Lactated Ringer's 1,000 ml @ 30 mls/hr Q24H PRN IV 09/28/17 22:30 10/01/17 22:29 Sodium Chloride 500 ml @ 30 mls/hr [id number] PRN IV 09/28/17 22:30 10/01/17 22:29 (Lopressor) 25 mg BAD WORK GATHERER PRN PO 09/28/17 22:30 10/01/17 22:29 (Chlorhexidine 2% Cloth) 3 pack BAD WORK GATHERER PRN TOPICAL 09/28/17 22:30 10/01/17 22:29 (Neurontin) 600 mg TID@0900,1500,2100 PO 09/30/17 15:00 10/01/17 20:10 ([facility] Ordered Lab Info) SPECIFIC LAB TO BE LEELA... ONCE ONCE .XX 10/02/17 15:45 10/02/17 15:46 Pharmacy Profile Note 0 ml @ 0 mls/hr UNSCH OTHER 09/30/17 20:00 (Deltasone) 50 mg Q6H PO 10/01/17 21:00 10/02/17 09:01 10/01/17 20:10 (Benadryl) 50 mg ONCE ONCE PO 10/02/17 09:00 10/02/17 09:01 Assessment and Plan Assessment and Plan 67 year old male s/p left hallux amputation Patient examined and evaluated. Dressing removed. Patient ok to be DC with appropriate IV abx once pathology finalized Surgical site WNL Arti Collinsl DPM October 01, 2017 21:09
[2017-10-02] VITALS (7 sets, daily range): BP systolic 120–157; BP diastolic 77–100; PULSE 75–96; RESP 16–20; TEMP 97–98.3; O2SAT 95–98
[2017-10-02] MEDS: VANCOMYCIN INJ 1,500 MG in SODIUM CHLORID 0.9% 500 ML INJ 500 ML IV SCH ×2 (02:31→16:00)
[2017-10-02] MEDS: predniSONE 50 MG TAB PO SCH ×2 (02:31→08:53)
[2017-10-02] MEDS: INSULIN ASPART SUPPLEMENTAL SCALE SQ SCH ×4 (08:00→20:30)
[2017-10-02 08:10] LABS: CREATININE 0.76 MG/DL (0.60-1.30)
--- NOTE | 2017-10-02 08:47 | PD.WOU.CON ---
Patient Intake Chief Complaint Hyperbaric Evaluation Consult Requested by Primary Care Physician Jesus Massey M.D. Coded Allergies: iodine (Verified Allergy, Intermediate, 09/27/17) got real sick levofloxacin (Verified Allergy, Intermediate, 09/27/17) severe headaches and fatigue with slight nausea sulfite (Verified Allergy, Intermediate, 09/27/17) nausea Vital Signs Date Time Temp Pulse Resp B/P (MAP) Pulse Ox O2 Delivery O2 Flow Rate FiO2 10/02/17 04:00 97.8 77 18 126/79 (95) 95 10/02/17 00:00 98.3 76 16 134/77 (96) 97 10/01/17 22:10 Room Air 10/01/17 20:00 98.2 79 17 138/82 (100) 99 10/01/17 17:35 18 10/01/17 16:00 99.2 75 18 154/72 (99) 97 10/01/17 12:03 98.5 69 17 122/69 (86) 99 Lab and Radiology Results Radiology Last Impressions Foot MRI 09/28/17 0000 Signed Impressions: Service Date/Time: Thursday, September 28, 2017 08:09 - CONCLUSION: 1. The examination demonstrates abnormal marrow edema with marrow enhancement enhancement involving the distal phalanx of the first digit. This is concerning for osteomyelitis. The proximal phalanx of the first digit appears intact. Jameel Wong MD Carotid Artery Ultrasound 09/28/17 0000 Signed Impressions: Service Date/Time: Thursday, September 28, 2017 19:46 - CONCLUSION: Mild plaque without significant stenosis. Silvano Tenorio MD Toe X-Ray 09/27/17 1112 Signed Impressions: Service Date/Time: September 11:47 - CONCLUSION: Findings are characteristic of osteomyelitis first distal phalanx. K. González Fernandes MD Abdomen X-Ray 09/27/17 0000 Signed Impressions: Service Date/Time: September 22:33 - CONCLUSION: Non-ferromagnetic penile implant. MD Jeremiah Agustin Jr., Karla A. MD October 02, 2017 08:47
[2017-10-02] MEDS: ENALAPRIL MALEATE 5 MG TAB PO SCH (08:53)
[2017-10-02] MEDS: DULoxetine HCl DR 30 MG CAP PO SCH ×2 (08:53→19:57)
[2017-10-02] MEDS: GABAPENTIN 300 MG CAP PO SCH ×3 (08:54→19:57)
[2017-10-02] MEDS: SODIUM CHLORIDE 0.9% FLUSH 10 ML FLUSH IV FLUSH SCH ×2 (08:57→19:57)
[2017-10-02] MEDS ORDERED: diphenhydrAMINE HCL 50 MG CAP PO ONE (09:00)
--- NOTE | 2017-10-02 13:11 | HHI.PR ---
Subjective Remarks in no acute distress. pain is controlled. no fever. no new complaints. Objective Vitals Vital Signs Date Time Temp Pulse Resp B/P (MAP) Pulse Ox O2 Delivery O2 Flow Rate FiO2 10/02/17 08:00 96 Room Air 10/02/17 08:00 98.0 75 20 149/83 (105) 97 10/02/17 04:00 97.8 77 18 126/79 (95) 95 10/02/17 00:00 98.3 76 16 134/77 (96) 97 10/01/17 22:10 Room Air 10/01/17 20:00 98.2 79 17 138/82 (100) 99 10/01/17 17:35 18 10/01/17 16:00 99.2 75 18 154/72 (99) 97 I/O 10/01/17 10/01/17 10/01/17 10/02/17 10/02/17 10/02/17 07:00 15:00 23:00 07:00 15:00 23:00 Intake Total 450 ml 960 ml 840 ml Output Total 600 ml 1050 ml Balance 450 ml 360 ml -210 ml Intake Oral 450 ml 960 ml 240 ml IV Total 600 ml Output Urine Total 600 ml 1050 ml # Voids 4 2 Result Diagram: 09/30/17 0539 10/02/17 0555 Imaging Last Impressions Foot MRI 09/28/17 0000 Signed Impressions: Service Date/Time: Thursday, September 28, 2017 08:09 - CONCLUSION: 1. The examination demonstrates abnormal marrow edema with marrow enhancement enhancement involving the distal phalanx of the first digit. This is concerning for osteomyelitis. The proximal phalanx of the first digit appears intact. Jameel Wong MD Carotid Artery Ultrasound 09/28/17 0000 Signed Impressions: Service Date/Time: Thursday, September 28, 2017 19:46 - CONCLUSION: Mild plaque without significant stenosis. Silvano Tenorio MD Toe X-Ray 09/27/17 1112 Signed Impressions: Service Date/Time: September 11:47 - CONCLUSION: Findings are characteristic of osteomyelitis first distal phalanx. Doe Fernandes MD Abdomen X-Ray 09/27/17 0000 Signed Impressions: Service Date/Time: September 22:33 - CONCLUSION: Non-ferromagnetic penile implant. Alcon Gallagher Jr., MD Objective Remarks GENERAL: This is a well-nourished, well-developed patient, in no apparent distress. CARDIOVASCULAR: Regular rate and regular rhythm without murmurs, gallops, or rubs. RESPIRATORY: Clear to auscultation. Breath sounds equal bilaterally. No wheezes , rales, or rhonchi. GASTROINTESTINAL: Abdomen soft, non-tender, nondistended. Normal, active bowel sounds MUSCULOSKELETAL: left foot covered with clean dressing. NEURO: Alert & Oriented x4 to person, place, time, situation. Moves all ext x4 Procedures 09/29/2017 PREOPERATIVE DIAGNOSES: Left hallux ulcer, osteomyelitis, hammertoe contracture. POSTOPERATIVE DIAGNOSES: Left hallux ulcer, osteomyelitis, hammertoe contracture. PROCEDURE PERFORMED: Left hallux amputation. FINDINGS: Clinically clear margin at first metatarsal head with no signs of infection or necrosis, hard bony cortex noted. COMPLICATIONS: None. SPECIMEN: Left hallux for pathological analysis and deep culture at the amputation margin microbial analysis. ANESTHESIA: General. ESTIMATED BLOOD LOSS: Less than 10 mL. DRAINS: [place]. TOURNIQUET TIME: 20 minutes at a setting at 250 mmHg about the patient's ankle. PLAN OF ACTIVITY: PACU and then return to floor. Continue IV antibiotics and continue vascular workup and evaluation of wound healing. JUSTIFICATION OF PROCEDURE: A 67-year-old male, chronic hallux hammertoe and ulcer. The patient was admitted. MRI showed osteomyelitis. Due to the long-term nature of the patient's wound, the deformity and now bone involvement, hallux amputation indicated. Vascular clearance obtained; however, further workup is needed to be certain of healing. No guarantees given or implied regarding the outcome. The patient understood the risks and benefits including, but not limited to possible need for long-term wound care, further debridement, partial foot amputation, possible loss of limb. PROCEDURE IN DETAIL: Under mild sedation, the patient was brought into the operating room, placed on the operating table in supine position. Following the induction of general anesthesia, the left lower extremity was scrubbed, prepped and draped in the usual aseptic fashion. The foot was elevated and exsanguinated and the previously placed mid calf tourniquet inflated to 250 mmHg. The foot was examined. There was noted to be a full-thickness ulceration at the distal aspect of the left hallux with purulent necrotic tissue, hypergranulation tissue involving the near complete entire distal aspect of the hallux. Next, a fish mouth type incision was made at the base of the proximal phalanx, first MPJ area. Sharp and blunt dissection was carried down through epidermis and dermal junction. Venous and arterial structures that were encountered were bovied and ligated. Further sharp and blunt dissection was carried down to the first MPJ joint capsule. Sharp disarticulation took place at this level. The first metatarsal head was examined. It was noted to be free of any cortical deficit. Mild arthritis noted, but no obvious signs of clinical osteomyelitis. A culture was taken at the bone and the soft tissue at this area. The digit was then passed off the field for pathological analysis. The wound was flushed with copious amounts of normal saline. Deep closure took place utilizing Vicryl. Skin was closed utilizing nylon. A [place] drain was placed through the apices of the wound. A bulky bandage applied. Upon relieving the tourniquet, there was a prompt hyperemic response to all digits without any delayed capillary fill time. Digits 2 through 5 intact. The patient recovered nicely in PACU. We will continue to monitor the wound. Bandage change within the next 24 hours. Continue vascular workup and evaluation. Recommendation at least a few more days of IV antibiotics, possibly switching to outpatient oral antibiotics pending deep culture and clinical progress. Qamar Delgado DPM Medications and IVs Inpatient Medications Acetaminophen (Tylenol) 500 mg Q4H PRN PO FEVER >101F Last administered on at 10:57; Start 09/27/17 at 13:30 Acetaminophen/ Hydrocodone Bitart ([place] 5-325 Mg) 1 tab Q4H PRN PO PAIN SCALE 1 TO 5 Last administered on 10/01/17at 16:35; Start 09/27/17 at 13:30 Acetaminophen/ Hydrocodone Bitart ([place] 7.5-325 Mg) 1 tab Q4H PRN PO PAIN SCALE 6 TO 10; Start 09/27/17 at 13:30 Atorvastatin Calcium (Lipitor) 10 mg EVERY OTHER DAY PO Last administered on at 09:04; Start 09/29/17 at 09:00 Bisacodyl (Dulcolax Supp) 10 mg DAILY PRN RECTAL SEVERE CONSITIPATION; Start at 13:45 Chlorhexidine Gluconate (Chlorhexidine 2% Cloth) 3 pack REPAIR ARMATURE WINDER HELPER PRN TOPICAL SEE LABEL COMMENTS; Start 09/28/17 at 22:30; Stop 10/01/17 at 22:29; Status DC Clindamycin Phosphate 900 mg/ Sodium Chloride 106 ml @ 200 mls/hr ONCE ONCE IV Last administered on 09/27/17at 11:36; Start 09/27/17 at 11:15; Stop at 11:46; Status DC Clindamycin/ Sodium Chloride 50 ml @ 100 mls/hr Q8H IV Last administered on at 12:29; Start 09/27/17 at 21:00; Stop 09/28/17 at 14:41; Status DC Dextrose (D50w (Vial) Inj) 50 ml UNSCH PRN IV PUSH HYPOGLYCEMIA-SEE COMMENTS; Start 09/27/17 at 13:30 Diphenhydramine HCl (Benadryl) 50 mg ONCE ONCE PO Last administered on at 08:53; Start 10/02/17 at 09:00; Stop 10/02/17 at 09:01; Status DC Duloxetine HCl (Cymbalta Dr) 30 mg BID PO Last administered on 10/02/17at 08:53 ; Start 09/27/17 at 21:00 Enalapril Maleate (Vasotec) 5 mg DAILY PO Last administered on 10/02/17at 08:53 ; Start 09/28/17 at 09:00 Enalaprilat (Vasotec Inj) 1.25 mg Q6H PRN IV PUSH SBP> OR = 180, DBP> OR = 100 ; Start 09/27/17 at 14:45 Enoxaparin Sodium (Lovenox Inj) 40 mg Q24H SQ Last administered on 10/01/17at 16 :31; Start 09/27/17 at 15:00 Gabapentin (Neurontin) 600 mg TID@0900,1500,2100 PO Last administered on at 08:54; Start 09/30/17 at 15:00 Glucagon (Glucagon Inj) 1 mg UNSCH PRN OTHER HYPOGLYCEMIA-SEE COMMENTS; Start 09/27/17 at 13:30 Influenza Virus Vaccine (Flu (Quadrivalent) Vaccine Inj) 0.5 ml ONCE ONCE IM ; Start 09/28/17 at 10:00; Stop 09/28/17 at 10:01; Status DC Insulin Aspart (NovoLOG SUPPLEMENTAL SCALE) 1 ACHS SLIDING SCALE SQ Last administered on 09/30/17at 20:49; Start 09/27/17 at 17:00 Ketorolac Tromethamine (Toradol Inj) 30 mg ONCE ONCE IVP Last administered on 09/27/17at 11:35; Start 09/27/17 at 11:15; Stop 09/27/17 at 11:20; Status DC Lactated Ringer's 1,000 ml @ 30 mls/hr Q24H PRN IV SEE LABEL COMMENTS; Start at 22:30; Stop 10/01/17 at 22:29; Status DC Lactulose (Lactulose Liq) 30 ml DAILY PRN PO SEVERE CONSITIPATION; Start at 13:45 Magnesium Hydroxide (Milk Of Magnesia Liq) 30 ml Q12H PRN PO Mild constipation ; Start 09/27/17 at 13:45 Metformin HCl (Glucophage) 500 mg BIDPC PO Last administered on 10/01/17at 09:05 ; Start 09/27/17 at 18:00; Status Future Hold Metoprolol Tartrate (Lopressor) 25 mg REPAIR ARMATURE WINDER HELPER PRN PO SEE LABEL COMMENTS; Start 09/28/17 at 22:30; Stop 10/01/17 at 22:29; Status DC Miscellaneous Information ([facility] [place] [facility] Information) ALL NURSING DEPARTME... UNSCH PRN .XX SEE LABEL COMMENTS; Start 09/29/17 at 09:30; Stop 09/30/17 at 09: 29; Status DC Miscellaneous Information ([facility] [place] [facility] Ordered Lab Info) SPECIFIC LAB TO BE LEELA... ONCE ONCE .XX ; Start 10/02/17 at 15:45; Stop 10/02/17 at 15:46 Pharmacy Profile Note 0 ml @ 0 mls/hr UNSCH OTHER ; Start 09/30/17 at 20:00 Pneumococcal Polyvalent Vaccine (Pneumovax-23 Inj) 25 mcg ONCE ONCE IM ; Start 09/28/17 at 10:00; Stop 09/28/17 at 10:01; Status DC Prednisone (Deltasone) 50 mg Q6H PO Last administered on 10/02/17at 08:53; Start 10/01/17 at 21:00; Stop 10/02/17 at 09:01; Status DC Sennosides (Senokot) 17.2 mg Q12H PRN PO Moderate constipation; Start 09/27/17 at 13:45 Sodium Chloride 500 ml @ 30 mls/hr [id number] PRN IV SEE LABEL COMMENTS; Start at 22:30; Stop 10/01/17 at 22:29; Status DC Sodium Chloride (NS Flush) 2 ml UNSCH PRN IV FLUSH FLUSH AFTER USING IV ACCESS ; Start 09/27/17 at 13:30 Vancomycin HCl 1500 mg/Sodium Chloride 515 ml @ 250 mls/hr Q12H IV Last administered on 10/02/17at 02:31; Start 09/27/17 at 16:00 A/P Assessment and Plan A/P 1. Left great toe osteomyelitis with infected wound - s/p left hallux amputation. on IV Vancomycin. ID, Podiatry and Vascular surgery following. CTA run-off and bone biopsy pending. continue with pain control. 2. Diabetic mellitus type II -continue with Accu-Cheks with sliding scale insulin 3. Diabetic neuropathy- continue with gabapentin . 4. Chronic hypertension, essential continue with home antihypertensives. 5.DVT prophylaxis - Lovenox Discharge Planning awaiting bone biopsy/ ID/podiatry and vascular surgery follow-up/ recommendations. Merrick Lam MD October 02, 2017 13:11
[2017-10-02] MEDS ORDERED: IOHEXOL 350 MG/ML 10 ML VIAL (for RAD DIAG) IVCONTRAST ONE (14:37)
--- NOTE | 2017-10-02 14:53 | RADRPT ---
EXAM DATE: 10/02/2017 2:33 PM EDT AGE/SEX: 67 years / Male INDICATIONS: Gangrene left greater toe. CLINICAL DATA: This is the patient's initial encounter. Patient reports that signs and symptoms have been present for 1 day and indicates a pain score of 5/10. MEDICAL/SURGICAL HISTORY: Cardiovascular disease. Diabetes mellitus type II. Hypertension. None. RADIATION DOSE: 11.97 CTDI (mGy) COMPARISON: No prior [facility] exams available for comparison. TECHNIQUE: Volumetric scanning was performed using a multi-row detector CT scanner during bolus infu romero of 97 ml Omnipaque 350 (iohexol) nonionic water-soluble contrast as a single exam dose. The d conchita was post processed with a variety of visualization algorithms including full volume maximum inten sity projection, multi-planar sliding thin slab reformation, curved planar reformation, and surface r endering techniques. Using automated exposure control and adjustment of the mA and/or kV according t o patient size, radiation dose was kept as low as reasonably achievable to obtain optimal diagnostic quality images. FINDINGS: Abdominal Aorta: Minimal athetotic irregularity and calcification of the abdominal aorta. The vessel is normal in caliber throughout its length without aneurysmal disease. Celiac, SMA and bilateral sing le renal arteries are patent. Pelvis: Scattered, minimal athetotic calcification. Both iliacs are patent. Right Lower Extremity: Mild athetotic calcification of the right lower extremity vasculature but the profunda, SFA and popliteal are all patent. The focal high-grade stenosis at the junction of the prox imal and mid anterior tibial. The anterior tibial can be seen to the ankle but is difficult to follow into the foot even on the delayed images. However, the posterior tibial and peroneal are patent thro ughout and can be followed into the foot. Left Lower Extremity: Scattered athetotic calcification but the profunda and SFA as well as the popli teal are all patent. Three-vessel runoff. Miscellaneous: There is fatty atrophy of the pancreas. Diverticular disease of the sigmoid without di verticulitis. Patient has a penile prosthesis with the reservoir adjacent to the left side of the uri nary bladder and the pump in the scrotal sac CONCLUSION: 1. I do not believe patient has a vascular etiology for current clinical symptoms. On the symptomati c left lower extremity, the inflow is widely patent with three-vessel runoff. 2. On the asymptomatic right side, there is a focal high-grade stenosis at the proximal anterior tib ial. The anterior tibial can be seen to the ankle on the right but not identified into the foot. Whyte mone, the posterior tibial and peroneal are patent throughout. 3. Inflow is widely patent down to the below knee popliteal bilaterally. Mesenteric and renal vessel s are patent. 4. Pancreatic fatty atrophy. 5. Diverticular disease of the descending and sigmoid colon without diverticulitis. 6. Penile prostheses. Electronically signed by: Vinicius Escalera MD 10/02/2017 2:52 PM EDT
[2017-10-02] MEDS: ENOXAPARIN SODIUM 40 MG/0.4 ML SYRINGE SQ SCH (15:34)
[2017-10-02] MEDS ORDERED: PHARMACY ORDERED LAB ONE (15:45)
--- NOTE | 2017-10-02 17:54 | PD.CAR.PN ---
CVT Progress Note Subjective/Hospital Course: 09/28/2017 Patient seen Full consult dictated Will follow Thanks J 09/30/2017 As noted in my original consultation CTA with runoff is pending and upon evaluation of the same will decide which way to go Based on the clinical exam I do not believe the patient has a significant degree of vascular disease that would require intervention 10/02/2017 As above noted the CTA confirms my clinical impression. This patient does not have significant degree of vascular disease that would account for his symptoms in any way. Patient has some stenotic areas in the anterior tibial artery however otherwise three-vessel runoff No indication for any vascular procedure based on the CTA for patient has no hemodynamically significant disease that would impair healing Objective: Vital Signs Date Time Temp Pulse Resp B/P (MAP) Pulse Ox O2 Delivery O2 Flow Rate FiO2 10/02/17 12:00 97.0 96 20 157/93 (114) 98 10/02/17 08:00 96 Room Air 10/02/17 08:00 98.0 75 20 149/83 (105) 97 10/02/17 04:00 97.8 77 18 126/79 (95) 95 10/02/17 00:00 98.3 76 16 134/77 (96) 97 10/01/17 22:10 Room Air 10/01/17 20:00 98.2 79 17 138/82 (100) 99 Labs: Laboratory Tests Test 10/02/17 05:55 10/02/17 15:48 Creatinine 0.76 MG/DL (0.60-1.30) Estimat Glomerular Filtration Rate 103 ML/MIN (>89) Vancomycin Level Trough 11.6 MCG/ML (5.0-10.0) Result Diagram: 09/30/17 0539 10/02/17 0555 Chuck Hawkins MD October 02, 2017 17:54
[2017-10-03] VITALS: BP 121/69; PULSE 78; RESP 16; TEMP 97.6; O2SAT 95
[2017-10-03 04:00] VITALS: BP 121/82; PULSE 69; RESP 16; TEMP 97.6; O2SAT 95
[2017-10-03] MEDS ORDERED: VANCOMYCIN 1,000 MG/NS 250 ML IV SCH ×2 (06:00)
[2017-10-03 08:00] VITALS: BP 152/75; PULSE 73; RESP 20; TEMP 97.6; O2SAT 96
[2017-10-03] MEDS: INSULIN ASPART SUPPLEMENTAL SCALE SQ SCH ×4 (08:00→22:18)
[2017-10-03] MEDS: ATORVASTATIN 10 MG TAB PO SCH (09:30)
[2017-10-03] MEDS: DULoxetine HCl DR 30 MG CAP PO SCH ×2 (09:30→22:18)
[2017-10-03] MEDS: ENALAPRIL MALEATE 5 MG TAB PO SCH (09:30)
[2017-10-03] MEDS: GABAPENTIN 300 MG CAP PO SCH ×3 (09:31→22:28)
[2017-10-03] MEDS: SODIUM CHLORIDE 0.9% FLUSH 10 ML FLUSH IV FLUSH SCH ×2 (09:32→22:19)
--- NOTE | 2017-10-03 11:44 | HHI.PR ---
Subjective Remarks in no acute distress. afebrile. denies pain and looks comfortable. has constipation. Objective Vitals Vital Signs Date Time Temp Pulse Resp B/P (MAP) Pulse Ox O2 Delivery O2 Flow Rate FiO2 10/03/17 08:00 97.6 73 20 152/75 (100) 96 10/03/17 08:00 96 Room Air 10/03/17 08:00 96 Room Air 10/03/17 04:00 97.6 69 16 121/82 (95) 95 10/03/17 00:00 97.6 78 16 121/69 (86) 95 10/02/17 22:00 Room Air 10/02/17 20:00 97.8 92 20 140/84 (102) 97 10/02/17 16:00 97.8 95 20 120/98 (105) 97 10/02/17 12:00 97.0 96 20 157/93 (114) 98 I/O 10/02/17 10/02/17 10/02/17 10/03/17 10/03/17 10/03/17 07:00 15:00 23:00 07:00 15:00 23:00 Intake Total 840 ml 480 ml 250 ml Output Total 1050 ml 300 ml Balance -210 ml 180 ml 250 ml Intake Oral 240 ml 480 ml 250 ml IV Total 600 ml Output Urine Total 1050 ml 300 ml # Voids 1 2 # Bowel Movements 0 Result Diagram: 09/30/17 0539 10/02/17 0555 Imaging Last Impressions Aorta w/Runoff CTA 10/02/17 0000 Signed Impressions: CONCLUSION: Foot MRI 09/28/17 0000 Signed Impressions: Service Date/Time: Thursday, September 28, 2017 08:09 - CONCLUSION: 1. The examination demonstrates abnormal marrow edema with marrow enhancement enhancement involving the distal phalanx of the first digit. This is concerning for osteomyelitis. The proximal phalanx of the first digit appears intact. Jameel Wong MD Carotid Artery Ultrasound 09/28/17 0000 Signed Impressions: Service Date/Time: Thursday, September 28, 2017 19:46 - CONCLUSION: Mild plaque without significant stenosis. Silvano Tenorio MD Toe X-Ray 09/27/17 1112 Signed Impressions: Service Date/Time: September 11:47 - CONCLUSION: Findings are characteristic of osteomyelitis first distal phalanx. K. González Shamlou, MD Abdomen X-Ray 09/27/17 0000 Signed Impressions: Service Date/Time: September 22:33 - CONCLUSION: Non-ferromagnetic penile implant. Alcon Gallagher Jr., MD Objective Remarks GENERAL: This is a well-nourished, well-developed patient, in no apparent distress. CARDIOVASCULAR: Regular rate and regular rhythm without murmurs, gallops, or rubs. RESPIRATORY: Clear to auscultation. Breath sounds equal bilaterally. No wheezes , rales, or rhonchi. GASTROINTESTINAL: Abdomen soft, non-tender, nondistended. Normal, active bowel sounds MUSCULOSKELETAL: left foot covered with clean dressing. NEURO: Alert & Oriented x4 to person, place, time, situation. Moves all ext x4 Procedures 09/29/2017 PREOPERATIVE DIAGNOSES: Left hallux ulcer, osteomyelitis, hammertoe contracture. POSTOPERATIVE DIAGNOSES: Left hallux ulcer, osteomyelitis, hammertoe contracture. PROCEDURE PERFORMED: Left hallux amputation. FINDINGS: Clinically clear margin at first metatarsal head with no signs of infection or necrosis, hard bony cortex noted. COMPLICATIONS: None. SPECIMEN: Left hallux for pathological analysis and deep culture at the amputation margin microbial analysis. ANESTHESIA: General. ESTIMATED BLOOD LOSS: Less than 10 mL. DRAINS: [place]. TOURNIQUET TIME: 20 minutes at a setting at 250 mmHg about the patient's ankle. PLAN OF ACTIVITY: PACU and then return to floor. Continue IV antibiotics and continue vascular workup and evaluation of wound healing. JUSTIFICATION OF PROCEDURE: A 67-year-old male, chronic hallux hammertoe and ulcer. The patient was admitted. MRI showed osteomyelitis. Due to the long-term nature of the patient's wound, the deformity and now bone involvement, hallux amputation indicated. Vascular clearance obtained; however, further workup is needed to be certain of healing. No guarantees given or implied regarding the outcome. The patient understood the risks and benefits including, but not limited to possible need for long-term wound care, further debridement, partial foot amputation, possible loss of limb. PROCEDURE IN DETAIL: Under mild sedation, the patient was brought into the operating room, placed on the operating table in supine position. Following the induction of general anesthesia, the left lower extremity was scrubbed, prepped and draped in the usual aseptic fashion. The foot was elevated and exsanguinated and the previously placed mid calf tourniquet inflated to 250 mmHg. The foot was examined. There was noted to be a full-thickness ulceration at the distal aspect of the left hallux with purulent necrotic tissue, hypergranulation tissue involving the near complete entire distal aspect of the hallux. Next, a fish mouth type incision was made at the base of the proximal phalanx, first MPJ area. Sharp and blunt dissection was carried down through epidermis and dermal junction. Venous and arterial structures that were encountered were bovied and ligated. Further sharp and blunt dissection was carried down to the first MPJ joint capsule. Sharp disarticulation took place at this level. The first metatarsal head was examined. It was noted to be free of any cortical deficit. Mild arthritis noted, but no obvious signs of clinical osteomyelitis. A culture was taken at the bone and the soft tissue at this area. The digit was then passed off the field for pathological analysis. The wound was flushed with copious amounts of normal saline. Deep closure took place utilizing Vicryl. Skin was closed utilizing nylon. A [place] drain was placed through the apices of the wound. A bulky bandage applied. Upon relieving the tourniquet, there was a prompt hyperemic response to all digits without any delayed capillary fill time. Digits 2 through 5 intact. The patient recovered nicely in PACU. We will continue to monitor the wound. Bandage change within the next 24 hours. Continue vascular workup and evaluation. Recommendation at least a few more days of IV antibiotics, possibly switching to outpatient oral antibiotics pending deep culture and clinical progress. Qamar Delgado DPM Medications and IVs Inpatient Medications Acetaminophen (Tylenol) 500 mg Q4H PRN PO FEVER >101F Last administered on at 10:57; Start 09/27/17 at 13:30 Acetaminophen/ Hydrocodone Bitart ([place] 5-325 Mg) 1 tab Q4H PRN PO PAIN SCALE 1 TO 5 Last administered on 10/01/17at 16:35; Start 09/27/17 at 13:30 Acetaminophen/ Hydrocodone Bitart ([place] 7.5-325 Mg) 1 tab Q4H PRN PO PAIN SCALE 6 TO 10; Start 09/27/17 at 13:30 Atorvastatin Calcium (Lipitor) 10 mg EVERY OTHER DAY PO Last administered on at 09:30; Start 09/29/17 at 09:00 Bisacodyl (Dulcolax Supp) 10 mg DAILY PRN RECTAL SEVERE CONSITIPATION; Start at 13:45 Chlorhexidine Gluconate (Chlorhexidine 2% Cloth) 3 pack [employer] PRN TOPICAL SEE LABEL COMMENTS; Start 09/28/17 at 22:30; Stop 10/01/17 at 22:29; Status DC Clindamycin Phosphate 900 mg/ Sodium Chloride 106 ml @ 200 mls/hr ONCE ONCE IV Last administered on 09/27/17at 11:36; Start 09/27/17 at 11:15; Stop at 11:46; Status DC Clindamycin/ Sodium Chloride 50 ml @ 100 mls/hr Q8H IV Last administered on at 12:29; Start 09/27/17 at 21:00; Stop 09/28/17 at 14:41; Status DC Dextrose (D50w (Vial) Inj) 50 ml UNSCH PRN IV PUSH HYPOGLYCEMIA-SEE COMMENTS; Start 09/27/17 at 13:30 Diphenhydramine HCl (Benadryl) 50 mg ONCE ONCE PO Last administered on at 08:53; Start 10/02/17 at 09:00; Stop 10/02/17 at 09:01; Status DC Duloxetine HCl (Cymbalta Dr) 30 mg BID PO Last administered on 10/03/17at 09:30 ; Start 09/27/17 at 21:00 Enalapril Maleate (Vasotec) 5 mg DAILY PO Last administered on 10/03/17at 09:30 ; Start 09/28/17 at 09:00 Enalaprilat (Vasotec Inj) 1.25 mg Q6H PRN IV PUSH SBP> OR = 180, DBP> OR = 100 ; Start 09/27/17 at 14:45 Enoxaparin Sodium (Lovenox Inj) 40 mg Q24H SQ Last administered on 10/02/17at 15 :34; Start 09/27/17 at 15:00 Gabapentin (Neurontin) 600 mg TID@0900,1500,2100 PO Last administered on at 09:31; Start 09/30/17 at 15:00 Glucagon (Glucagon Inj) 1 mg UNSCH PRN OTHER HYPOGLYCEMIA-SEE COMMENTS; Start 09/27/17 at 13:30 Influenza Virus Vaccine (Flu (Quadrivalent) Vaccine Inj) 0.5 ml ONCE ONCE IM ; Start 09/28/17 at 10:00; Stop 09/28/17 at 10:01; Status DC Insulin Aspart (NovoLOG SUPPLEMENTAL SCALE) 1 ACHS SLIDING SCALE SQ Last administered on 10/02/17at 20:30; Start 09/27/17 at 17:00 Ketorolac Tromethamine (Toradol Inj) 30 mg ONCE ONCE IVP Last administered on 09/27/17at 11:35; Start 09/27/17 at 11:15; Stop 09/27/17 at 11:20; Status DC Lactated Ringer's 1,000 ml @ 30 mls/hr Q24H PRN IV SEE LABEL COMMENTS; Start at 22:30; Stop 10/01/17 at 22:29; Status DC Lactulose (Lactulose Liq) 30 ml DAILY PRN PO SEVERE CONSITIPATION; Start at 13:45 Magnesium Hydroxide (Milk Of Magnesia Liq) 30 ml Q12H PRN PO Mild constipation Last administered on 10/02/17at 20:10; Start 09/27/17 at 13:45 Metformin HCl (Glucophage) 500 mg BIDPC PO Last administered on 10/01/17at 09:05 ; Start 09/27/17 at 18:00; Status Future Hold Metoprolol Tartrate (Lopressor) 25 mg G[employer]PA[employer]ER PRN PO SEE LABEL COMMENTS; Start 09/28/17 at 22:30; Stop 10/01/17 at 22:29; Status DC Miscellaneous Information ([facility]) ALL NURSING DEPARTME... UNSCH PRN .XX SEE LABEL COMMENTS; Start 09/29/17 at 09:30; Stop 09/30/17 at 09: 29; Status DC Miscellaneous Information ([facility] Ordered Lab Info) SPECIFIC LAB TO BE DRAWN:VANCOMYCIN TROUGH DATE TO... ONCE ONCE .XX ; Start 10/05/17 at 11:45; Stop 10/05/17 at 11:46 Pharmacy Profile Note 0 ml @ 0 mls/hr UNSCH OTHER ; Start 09/30/17 at 20:00 Pneumococcal Polyvalent Vaccine (Pneumovax-23 Inj) 25 mcg ONCE ONCE IM ; Start 09/28/17 at 10:00; Stop 09/28/17 at 10:01; Status DC Prednisone (Deltasone) 50 mg Q6H PO Last administered on 10/02/17at 08:53; Start 10/01/17 at 21:00; Stop 10/02/17 at 09:01; Status DC Sennosides (Senokot) 17.2 mg Q12H PRN PO Moderate constipation; Start 09/27/17 at 13:45 Sodium Chloride 500 ml @ 30 mls/hr [id number] PRN IV SEE LABEL COMMENTS; Start at 22:30; Stop 10/01/17 at 22:29; Status DC Sodium Chloride (NS Flush) 2 ml UNSCH PRN IV FLUSH FLUSH AFTER USING IV ACCESS ; Start 09/27/17 at 13:30 Vancomycin HCl 1000 mg/Sodium Chloride 250 ml @ 250 mls/hr Q8H IV Last administered on 10/03/17at 06:45; Start 10/03/17 at 06:00; Stop 10/03/17 at 10:58 ; Status DC Vancomycin HCl 1500 mg/Sodium Chloride 515 ml @ 250 mls/hr Q12H IV Last administered on 10/02/17at 16:00; Start 09/27/17 at 16:00; Stop 10/02/17 at 20:43 ; Status DC Vancomycin HCl 2000 mg/Sodium Chloride 520 ml @ 250 mls/hr Q12H IV ; Start at 12:00 A/P Assessment and Plan A/P 1. Left great toe osteomyelitis with infected wound - s/p left hallux amputation. on IV Vancomycin. CTA run off as noted above/ vascular surgery f/u appreciated and no interventions recommended at this time. cleared by podiatry- awaiting biopsy and ID recommendations on antibiotic regimen. continue with pain control. 2. Diabetic mellitus type II -continue with Accu-Cheks with sliding scale insulin 3. Diabetic neuropathy- continue with gabapentin . 4. Chronic hypertension, essential continue with home antihypertensives. 5. constipation; laxatives as needed. 6.DVT prophylaxis - Lovenox Discharge Planning awaiting bone biopsy/ ID/follow-up/ recommendations. Merrick Lam MD October 03, 2017 11:44
[2017-10-03 12:00] VITALS: BP 137/65; PULSE 68; RESP 20; TEMP 98.1; O2SAT 98
[2017-10-03] MEDS: VANCOMYCIN INJ 2,000 MG in SODIUM CHLORID 0.9% 500 ML INJ 500 ML IV SCH ×2 (12:34→22:28)
[2017-10-03] MEDS: ENOXAPARIN SODIUM 40 MG/0.4 ML SYRINGE SQ SCH (14:44)
[2017-10-03 16:00] VITALS: BP 156/75; PULSE 71; RESP 20; TEMP 97.7; O2SAT 97
[2017-10-03 20:00] VITALS: BP 133/66; PULSE 74; RESP 20; TEMP 98.2; O2SAT 100
[2017-10-03] MEDS ORDERED: PHARMACY ORDERED LAB ONE (21:45)
[2017-10-04] VITALS: BP 127/73; PULSE 68; RESP 20; TEMP 98; O2SAT 100
[2017-10-04 04:00] VITALS: BP 132/74; PULSE 67; RESP 19; TEMP 97; O2SAT 96
[2017-10-04 07:11] LABS: CREATININE 0.91 MG/DL (0.60-1.30)
[2017-10-04] MEDS: INSULIN ASPART SUPPLEMENTAL SCALE SQ SCH (07:48)
--- NOTE | 2017-10-04 07:56 | RADRPT ---
INDICATIONS: Poor venous access CLINICAL DATA: This is the patient's subsequent encounter. Patient reports that signs and symptoms h ave been present for and indicates a pain score of . Location: Upper extremity cephalic vein, Laterality: R ight MEDICAL/SURGICAL HISTORY: Cardiovascular disease, diabetes mellitus type 2 and hypertension. COMPARISON: No prior [facility] exams available for comparison. PROCEDURE : 1. Ultrasound guided venous access. The risks, benefits and alternatives to the procedure were explained and verbal and written consent w as obtained. The site was prepped in sterile fashion. Full sterile technique was used, including ca p, mask, sterile gloves and gown and a large sterile sheet. Hand hygiene and 2% chlorhexidine and/or betadine/alcohol prep was utilized per protocol for cutaneous antisepsis. Sterile gel and sterile p robe cover were utilized for ultrasound guidance. The skin and subcutaneous tissues were infiltrate d with local anesthetic solution. With ultrasound guidance the prescribed vein was punctured for venous access. A 4 Uzbek dilator was placed and was flushed and locked with heparin. The patient tolerated procedure well and there were n o complications. CONCLUSION: 1. Uncomplicated ultrasound guided venous access. Electronically signed by: Farzad Ewing MD 10/04/2017 7:55 AM EDT
[2017-10-04 08:00] VITALS: BP 140/69; PULSE 71; RESP 18; TEMP 97.9; O2SAT 98
--- NOTE | 2017-10-04 09:01 | HHI.PR ---
Addendum to Inpatient Note Addendum Reason: Additional Documentation Additional Information Pathology report reviewed. Margins clear with no e.o osteomyelitis. Intraop cultures with MRSA resistant to oral doxy, levaquin. Patient wants to go to [place] and would like to avoid IV antibiotics. Garth Flores to [employer] to get approval for Zyvox 600 mg po bid for 2 weeks. Ok to replace with Generic for Zyvox which is Linezolid. Will sign off please call back if any change in clinical condition or questions. Jenniffer Helm MD October 04, 2017 09:01
[2017-10-04] MEDS ORDERED: HYDR-3516 PO (09:28)
[2017-10-04] MEDS ORDERED: ZYVO600T PO (09:28)
--- NOTE | 2017-10-04 09:30 | HHI.DS ---
Discharge Summary Admission Date September 27, 2017 at 14:06 Discharge Date: October 04, 2017 Admitting Diagnosis left great toe osteomyelitis, diabetes mellitius (1) Infection of left great toe due to methicillin resistant Staphylococcus aureus (MRSA) ICD Code: A49.02 - Methicillin resistant Staphylococcus aureus infection, unspecified site Procedures 09/29/2017 PREOPERATIVE DIAGNOSES: Left hallux ulcer, osteomyelitis, hammertoe contracture. POSTOPERATIVE DIAGNOSES: Left hallux ulcer, osteomyelitis, hammertoe contracture. PROCEDURE PERFORMED: Left hallux amputation. FINDINGS: Clinically clear margin at first metatarsal head with no signs of infection or necrosis, hard bony cortex noted. COMPLICATIONS: None. SPECIMEN: Left hallux for pathological analysis and deep culture at the amputation margin microbial analysis. ANESTHESIA: General. ESTIMATED BLOOD LOSS: Less than 10 mL. DRAINS: [place]. TOURNIQUET TIME: 20 minutes at a setting at 250 mmHg about the patient's ankle. PLAN OF ACTIVITY: PACU and then return to floor. Continue IV antibiotics and continue vascular workup and evaluation of wound healing. JUSTIFICATION OF PROCEDURE: A 67-year-old male, chronic hallux hammertoe and ulcer. The patient was admitted. MRI showed osteomyelitis. Due to the long-term nature of the patient's wound, the deformity and now bone involvement, hallux amputation indicated. Vascular clearance obtained; however, further workup is needed to be certain of healing. No guarantees given or implied regarding the outcome. The patient understood the risks and benefits including, but not limited to possible need for long-term wound care, further debridement, partial foot amputation, possible loss of limb. PROCEDURE IN DETAIL: Under mild sedation, the patient was brought into the operating room, placed on the operating table in supine position. Following the induction of general anesthesia, the left lower extremity was scrubbed, prepped and draped in the usual aseptic fashion. The foot was elevated and exsanguinated and the previously placed mid calf tourniquet inflated to 250 mmHg. The foot was examined. There was noted to be a full-thickness ulceration at the distal aspect of the left hallux with purulent necrotic tissue, hypergranulation tissue involving the near complete entire distal aspect of the hallux. Next, a fish mouth type incision was made at the base of the proximal phalanx, first MPJ area. Sharp and blunt dissection was carried down through epidermis and dermal junction. Venous and arterial structures that were encountered were bovied and ligated. Further sharp and blunt dissection was carried down to the first MPJ joint capsule. Sharp disarticulation took place at this level. The first metatarsal head was examined. It was noted to be free of any cortical deficit. Mild arthritis noted, but no obvious signs of clinical osteomyelitis. A culture was taken at the bone and the soft tissue at this area. The digit was then passed off the field for pathological analysis. The wound was flushed with copious amounts of normal saline. Deep closure took place utilizing Vicryl. Skin was closed utilizing nylon. A [place] drain was placed through the apices of the wound. A bulky bandage applied. Upon relieving the tourniquet, there was a prompt hyperemic response to all digits without any delayed capillary fill time. Digits 2 through 5 intact. The patient recovered nicely in PACU. We will continue to monitor the wound. Bandage change within the next 24 hours. Continue vascular workup and evaluation. Recommendation at least a few more days of IV antibiotics, possibly switching to outpatient oral antibiotics pending deep culture and clinical progress. Qamar Delgado DPM Brief History - From Admission 67 year old white mail with a history of type 2 diabetes mellitus with neuropathy, hypertension who presents to the emergency room with worsening left toe swelling redness along with some yellowish malodorous drainage over the past 48 hours despite seeing his primary care physician and having a debridement. He states that he first injured his left toe over 2 years ago in which he stepped on a nail and was seen by Dr. Colvin. At that point, his left toe wound was being managed by podiatry and a referral was given to Dr. Lemon. Dr. Lemon had debrided the area and 14 weeks ago had placed the left foot in an open cast and ordered special insoles for him. 2 weeks ago the left toe became red and swollen with it being infected with further debridement needed. He was placed on Levaquin last however had side effects of headache nausea and fatigue and therefore stopped taking the medication. When he attempted to contact Dr. Lemon, he was requested to see him again prior to be given another oral antibiotics. He at that point went to see his primary care physician Dr. Massey however had one of his partners Dr. Dumont saw him and he was given oral clindamycin and a IM injection of an antibiotic. When he had continued drainage fevers and chills he came into the emergency room today for further evaluation. He denies any other trauma to the area. CBC/BMP: 09/30/17 0539 10/04/17 0525 Significant Findings Laboratory Tests Test 10/02/17 05:55 10/02/17 15:48 10/04/17 05:25 Vancomycin Level Trough 11.6 MCG/ML (5.0-10.0) Estimat Glomerular Filtration Rate 84 ML/MIN (>89) Imaging Last Impressions Misc Interventional Procedure 10/02/17 0000 Signed Impressions: CONCLUSION: 1. Uncomplicated ultrasound guided venous access. Aorta w/Runoff CTA 10/02/17 0000 Signed Impressions: CONCLUSION: 1. I do not believe patient has a vascular etiology for current clinical sympt oms. On the symptomatic left lower extremity, the inflow is widely patent with three-vessel runoff. 2. On the asymptomatic right side, there is a focal high-grade stenosis at the proximal anterior tibial. The anterior tibial can be seen to the ankle on the right but not identified into the foot. However, the posterior tibial and peron eal are patent throughout. 3. Inflow is widely patent down to the below knee popliteal bilaterally. Mesen teric and renal vessels are patent. 4. Pancreatic fatty atrophy. 5. Diverticular disease of the descending and sigmoid colon without diverticul itis. 6. Penile prostheses. Foot MRI 09/28/17 0000 Signed Impressions: Service Date/Time: Thursday, September 28, 2017 08:09 - CONCLUSION: 1. The examination demonstrates abnormal marrow edema with marrow enhancement enhancement involving the distal phalanx of the first digit. This is concerning for osteomyelitis. The proximal phalanx of the first digit appears intact. Jameel Wong MD Carotid Artery Ultrasound 09/28/17 0000 Signed Impressions: Service Date/Time: Thursday, September 28, 2017 19:46 - CONCLUSION: Mild plaque without significant stenosis. Silvano Tenorio MD Toe X-Ray 09/27/17 1112 Signed Impressions: Service Date/Time: September 11:47 - CONCLUSION: Findings are characteristic of osteomyelitis first distal phalanx. KMarciano Fernandes MD Abdomen X-Ray 09/27/17 0000 Signed Impressions: Service Date/Time: September 22:33 - CONCLUSION: Non-ferromagnetic penile implant. Alcon Gallagher Jr., MD PE at Discharge GENERAL: This is a well-nourished, well-developed patient, in no apparent distress. CARDIOVASCULAR: Regular rate and regular rhythm without murmurs, gallops, or rubs. RESPIRATORY: Clear to auscultation. Breath sounds equal bilaterally. No wheezes , rales, or rhonchi. GASTROINTESTINAL: Abdomen soft, non-tender, nondistended. Normal, active bowel sounds MUSCULOSKELETAL: left foot covered with clean dressing. NEURO: Alert & Oriented x4 to person, place, time, situation. Moves all ext x4 Hospital Course 1. Left great toe osteomyelitis with infected wound - s/p left hallux amputation. will switch to po Zyvox upon discharge. CTA run off as noted above/ vascular surgery f/u appreciated and no interventions recommended at this time. cleared by podiatry- awaiting biopsy and ID recommendations on antibiotic regimen. continue with pain control. 2. Diabetic mellitus type II -continue with Accu-Cheks with sliding scale insulin 3. Diabetic neuropathy- continue with gabapentin . 4. Chronic hypertension, essential continue with home antihypertensives. 5. constipation; laxatives as needed. 6.DVT prophylaxis - Lovenox Pt Condition on Discharge: Good Discharge Disposition: Discharge Home Discharge Time: > 30 minutes Discharge Instructions DIET: Follow Instructions for: Heart Healthy Diet, Diabetic Diet Activities you can perform: Regular-No Restrictions Merrick Lam MD October 04, 2017 09:30
--- NOTE | 2017-10-04 09:35 | HHI.PR ---
Subjective Remarks in no acute distress. pain is controlled. no fever. no new complaints. Objective Vitals Vital Signs Date Time Temp Pulse Resp B/P (MAP) Pulse Ox O2 Delivery O2 Flow Rate FiO2 10/04/17 04:00 97.0 67 19 132/74 (93) 96 10/04/17 00:00 98.0 68 20 127/73 (91) 100 10/03/17 21:00 97 Room Air 10/03/17 20:00 98.2 74 20 133/66 (88) 100 10/03/17 16:00 97.7 71 20 156/75 (102) 97 10/03/17 12:00 98.1 68 20 137/65 (89) 98 I/O 10/03/17 10/03/17 10/03/17 10/04/17 10/04/17 10/04/17 07:00 15:00 23:00 07:00 15:00 23:00 Intake Total 250 ml 960 ml 240 ml Output Total 550 ml Balance 250 ml 960 ml -310 ml Intake Oral 250 ml 960 ml 240 ml Output Urine Total 550 ml # Voids 2 3 # Bowel Movements 1 0 Result Diagram: 09/30/17 0539 10/04/17 0525 Imaging Last Impressions [facility] Interventional Procedure 10/02/17 0000 Signed Impressions: CONCLUSION: 1. Uncomplicated ultrasound guided venous access. Aorta w/Runoff CTA 10/02/17 0000 Signed Impressions: CONCLUSION: 1. I do not believe patient has a vascular etiology for current clinical sympt oms. On the symptomatic left lower extremity, the inflow is widely patent with three-vessel runoff. 2. On the asymptomatic right side, there is a focal high-grade stenosis at the proximal anterior tibial. The anterior tibial can be seen to the ankle on the right but not identified into the foot. However, the posterior tibial and peron eal are patent throughout. 3. Inflow is widely patent down to the below knee popliteal bilaterally. Mesen teric and renal vessels are patent. 4. Pancreatic fatty atrophy. 5. Diverticular disease of the descending and sigmoid colon without diverticul itis. 6. Penile prostheses. Foot MRI 09/28/17 0000 Signed Impressions: Service Date/Time: Thursday, September 28, 2017 08:09 - CONCLUSION: 1. The examination demonstrates abnormal marrow edema with marrow enhancement enhancement involving the distal phalanx of the first digit. This is concerning for osteomyelitis. The proximal phalanx of the first digit appears intact. Jameel Wong MD Carotid Artery Ultrasound 09/28/17 0000 Signed Impressions: Service Date/Time: Thursday, September 28, 2017 19:46 - CONCLUSION: Mild plaque without significant stenosis. Silvano Tenorio MD Toe X-Ray 09/27/17 1112 Signed Impressions: Service Date/Time: September 11:47 - CONCLUSION: Findings are characteristic of osteomyelitis first distal phalanx. KMarciano Fernandes MD Abdomen X-Ray 09/27/17 0000 Signed Impressions: Service Date/Time: September 22:33 - CONCLUSION: Non-ferromagnetic penile implant. Alcon Gallagher Jr., MD Objective Remarks GENERAL: This is a well-nourished, well-developed patient, in no apparent distress. CARDIOVASCULAR: Regular rate and regular rhythm without murmurs, gallops, or rubs. RESPIRATORY: Clear to auscultation. Breath sounds equal bilaterally. No wheezes , rales, or rhonchi. GASTROINTESTINAL: Abdomen soft, non-tender, nondistended. Normal, active bowel sounds MUSCULOSKELETAL: left foot covered with clean dressing. NEURO: Alert & Oriented x4 to person, place, time, situation. Moves all ext x4 Procedures 09/29/2017 PREOPERATIVE DIAGNOSES: Left hallux ulcer, osteomyelitis, hammertoe contracture. POSTOPERATIVE DIAGNOSES: Left hallux ulcer, osteomyelitis, hammertoe contracture. PROCEDURE PERFORMED: Left hallux amputation. FINDINGS: Clinically clear margin at first metatarsal head with no signs of infection or necrosis, hard bony cortex noted. COMPLICATIONS: None. SPECIMEN: Left hallux for pathological analysis and deep culture at the amputation margin microbial analysis. ANESTHESIA: General. ESTIMATED BLOOD LOSS: Less than 10 mL. DRAINS: [place]. TOURNIQUET TIME: 20 minutes at a setting at 250 mmHg about the patient's ankle. PLAN OF ACTIVITY: PACU and then return to floor. Continue IV antibiotics and continue vascular workup and evaluation of wound healing. JUSTIFICATION OF PROCEDURE: A 67-year-old male, chronic hallux hammertoe and ulcer. The patient was admitted. MRI showed osteomyelitis. Due to the long-term nature of the patient's wound, the deformity and now bone involvement, hallux amputation indicated. Vascular clearance obtained; however, further workup is needed to be certain of healing. No guarantees given or implied regarding the outcome. The patient understood the risks and benefits including, but not limited to possible need for long-term wound care, further debridement, partial foot amputation, possible loss of limb. PROCEDURE IN DETAIL: Under mild sedation, the patient was brought into the operating room, placed on the operating table in supine position. Following the induction of general anesthesia, the left lower extremity was scrubbed, prepped and draped in the usual aseptic fashion. The foot was elevated and exsanguinated and the previously placed mid calf tourniquet inflated to 250 mmHg. The foot was examined. There was noted to be a full-thickness ulceration at the distal aspect of the left hallux with purulent necrotic tissue, hypergranulation tissue involving the near complete entire distal aspect of the hallux. Next, a fish mouth type incision was made at the base of the proximal phalanx, first MPJ area. Sharp and blunt dissection was carried down through epidermis and dermal junction. Venous and arterial structures that were encountered were bovied and ligated. Further sharp and blunt dissection was carried down to the first MPJ joint capsule. Sharp disarticulation took place at this level. The first metatarsal head was examined. It was noted to be free of any cortical deficit. Mild arthritis noted, but no obvious signs of clinical osteomyelitis. A culture was taken at the bone and the soft tissue at this area. The digit was then passed off the field for pathological analysis. The wound was flushed with copious amounts of normal saline. Deep closure took place utilizing Vicryl. Skin was closed utilizing nylon. A [place] drain was placed through the apices of the wound. A bulky bandage applied. Upon relieving the tourniquet, there was a prompt hyperemic response to all digits without any delayed capillary fill time. Digits 2 through 5 intact. The patient recovered nicely in PACU. We will continue to monitor the wound. Bandage change within the next 24 hours. Continue vascular workup and evaluation. Recommendation at least a few more days of IV antibiotics, possibly switching to outpatient oral antibiotics pending deep culture and clinical progress. Qamar Delgado, DPM Medications and IVs Inpatient Medications Acetaminophen (Tylenol) 500 mg Q4H PRN PO FEVER >101F Last administered on at 10:57; Start 09/27/17 at 13:30 Acetaminophen/ Hydrocodone Bitart ([place] 5-325 Mg) 1 tab Q4H PRN PO PAIN SCALE 1 TO 5 Last administered on 10/01/17at 16:35; Start 09/27/17 at 13:30 Acetaminophen/ Hydrocodone Bitart ([place] 7.5-325 Mg) 1 tab Q4H PRN PO PAIN SCALE 6 TO 10; Start 09/27/17 at 13:30 Atorvastatin Calcium (Lipitor) 10 mg EVERY OTHER DAY PO Last administered on at 09:30; Start 09/29/17 at 09:00 Bisacodyl (Dulcolax Supp) 10 mg DAILY PRN RECTAL SEVERE CONSITIPATION; Start at 13:45 Chlorhexidine Gluconate (Chlorhexidine 2% Cloth) 3 pack SUPERVISOR NURSE PRN TOPICAL SEE LABEL COMMENTS; Start 09/28/17 at 22:30; Stop 10/01/17 at 22:29; Status DC Clindamycin Phosphate 900 mg/ Sodium Chloride 106 ml @ 200 mls/hr ONCE ONCE IV Last administered on 09/27/17at 11:36; Start 09/27/17 at 11:15; Stop at 11:46; Status DC Clindamycin/ Sodium Chloride 50 ml @ 100 mls/hr Q8H IV Last administered on at 12:29; Start 09/27/17 at 21:00; Stop 09/28/17 at 14:41; Status DC Dextrose (D50w (Vial) Inj) 50 ml UNSCH PRN IV PUSH HYPOGLYCEMIA-SEE COMMENTS; Start 09/27/17 at 13:30 Diphenhydramine HCl (Benadryl) 50 mg ONCE ONCE PO Last administered on at 08:53; Start 10/02/17 at 09:00; Stop 10/02/17 at 09:01; Status DC Duloxetine HCl (Cymbalta Dr) 30 mg BID PO Last administered on 10/03/17at 22:18 ; Start 09/27/17 at 21:00 Enalapril Maleate (Vasotec) 5 mg DAILY PO Last administered on 10/03/17at 09:30 ; Start 09/28/17 at 09:00 Enalaprilat (Vasotec Inj) 1.25 mg Q6H PRN IV PUSH SBP> OR = 180, DBP> OR = 100 ; Start 09/27/17 at 14:45 Enoxaparin Sodium (Lovenox Inj) 40 mg Q24H SQ Last administered on 10/03/17at 14 :44; Start 09/27/17 at 15:00 Gabapentin (Neurontin) 600 mg TID@0900,1500,2100 PO Last administered on at 22:28; Start 09/30/17 at 15:00 Glucagon (Glucagon Inj) 1 mg UNSCH PRN OTHER HYPOGLYCEMIA-SEE COMMENTS; Start 09/27/17 at 13:30 Influenza Virus Vaccine (Flu (Quadrivalent) Vaccine Inj) 0.5 ml ONCE ONCE IM ; Start 09/28/17 at 10:00; Stop 09/28/17 at 10:01; Status DC Insulin Aspart (NovoLOG SUPPLEMENTAL SCALE) 1 ACHS SLIDING SCALE SQ Last administered on 10/03/17 22:18; Start 09/27/17 at 17:00 Ketorolac Tromethamine (Toradol Inj) 30 mg ONCE ONCE IVP Last administered on 09/27/17at 11:35; Start 09/27/17 at 11:15; Stop 09/27/17 at 11:20; Status DC Lactated Ringer's 1,000 ml @ 30 mls/hr Q24H PRN IV SEE LABEL COMMENTS; Start at 22:30; Stop 10/01/17 at 22:29; Status DC Lactulose (Lactulose Liq) 30 ml DAILY PRN PO SEVERE CONSITIPATION Last administered on 10/03/17at 12:43; Start 09/27/17 at 13:45 Magnesium Hydroxide (Milk Of Magnesia Liq) 30 ml Q12H PRN PO Mild constipation Last administered on 10/02/17at 20:10; Start 09/27/17 at 13:45 Metformin HCl (Glucophage) 500 mg BIDPC PO Last administered on 10/01/17at 09:05 ; Start 09/27/17 at 18:00; Status Future Hold Metoprolol Tartrate (Lopressor) 25 mg SUPERVISOR NURSE PRN PO SEE LABEL COMMENTS; Start 09/28/17 at 22:30; Stop 10/01/17 at 22:29; Status DC Miscellaneous Information ([facility] Nursing Information) ALL NURSING DEPARTME... UNSCH PRN .XX SEE LABEL COMMENTS; Start 09/29/17 at 09:30; Stop 09/30/17 at 09: 29; Status DC Miscellaneous Information ([facility] Ordered Lab Info) SPECIFIC LAB TO BE DRAWN:VANCOMYCIN TROUGH DATE TO... ONCE ONCE .XX ; Start 10/05/17 at 11:45; Stop 10/05/17 at 11:46 Pharmacy Profile Note 0 ml @ 0 mls/hr UNSCH OTHER ; Start 09/30/17 at 20:00 Pneumococcal Polyvalent Vaccine (Pneumovax-23 Inj) 25 mcg ONCE ONCE IM ; Start 09/28/17 at 10:00; Stop 09/28/17 at 10:01; Status DC Prednisone (Deltasone) 50 mg Q6H PO Last administered on 10/02/17at 08:53; Start 10/01/17 at 21:00; Stop 10/02/17 at 09:01; Status DC Sennosides (Senokot) 17.2 mg Q12H PRN PO Moderate constipation; Start 09/27/17 at 13:45 Sodium Chloride 500 ml @ 30 mls/hr [id number] PRN IV SEE LABEL COMMENTS; Start at 22:30; Stop 10/01/17 at 22:29; Status DC Sodium Chloride (NS Flush) 2 ml UNSCH PRN IV FLUSH FLUSH AFTER USING IV ACCESS ; Start 09/27/17 at 13:30 Vancomycin HCl 1000 mg/Sodium Chloride 250 ml @ 250 mls/hr Q8H IV Last administered on 10/03/17at 06:45; Start 10/03/17 at 06:00; Stop 10/03/17 at 10:58 ; Status DC Vancomycin HCl 1500 mg/Sodium Chloride 515 ml @ 250 mls/hr Q12H IV Last administered on 10/02/17at 16:00; Start 09/27/17 at 16:00; Stop 10/02/17 at 20:43 ; Status DC Vancomycin HCl 2000 mg/Sodium Chloride 520 ml @ 250 mls/hr Q12H IV Last administered on 10/03/17at 22:28; Start 10/03/17 at 12:00 A/P Problem List: (1) Infection of left great toe due to methicillin resistant Staphylococcus aureus (MRSA) ICD Code: A49.02 - Methicillin resistant Staphylococcus aureus infection, unspecified site Assessment and Plan A/P 1. Left great toe osteomyelitis with infected wound - s/p left hallux amputation. on IV Vancomycin; d/w today and will switch to po Zyvox upon discharge. CTA run off as noted above/ vascular surgery f/u appreciated and no interventions recommended at this time. cleared by podiatry- continue with pain control. 2. Diabetic mellitus type II -continue with Accu-Cheks with sliding scale insulin 3. Diabetic neuropathy- continue with gabapentin . 4. Chronic hypertension, essential continue with home antihypertensives. 5. constipation; laxatives as needed. 6.DVT prophylaxis - Lovenox Discharge Planning dc home today with f/u with pcp and podiatry. case management to assist with po Zyvox. d/w the patient regarding the importance of the monitoring the CBC while on antibiotics; he understood. d/w . time spent 35 min. Merrick Lam MD October 04, 2017 09:35
[2017-10-04] MEDS: GABAPENTIN 300 MG CAP PO SCH (09:42)
[2017-10-04] MEDS: ENALAPRIL MALEATE 5 MG TAB PO SCH (09:42)
[2017-10-04] MEDS: DULoxetine HCl DR 30 MG CAP PO SCH (09:42)
[2017-10-04] MEDS: SODIUM CHLORIDE 0.9% FLUSH 10 ML FLUSH IV FLUSH SCH (09:42)
[2017-10-04] MEDS ORDERED: CYMB30CA PO (12:07)
[2017-10-05] MEDS ORDERED: PHARMACY ORDERED LAB ONE (11:45)
== END 2017-10-04 13:01 | disposition home or self-care (01) | DRG 617 ==
LOC: NEPE 09:43 → NEDA 14:06 → N04B 15:28
PROVIDERS: ADMIT Internal Medicine; ATTEND Internal Medicine
PROC: 0Y6Q0Z1 Detachment at Left 1st Toe, High, Open Approach (ICD-10-PCS; principal; 2017-09-29 07:56)
DX: E11.621 Type 2 diabetes mellitus with foot ulcer (principal); E11.52 Type 2 diabetes mellitus with diabetic peripheral angiopathy with gangrene; E11.40 Type 2 diabetes mellitus with diabetic neuropathy, unspecified; M86.172 Other acute osteomyelitis, left ankle and foot; L03.116 Cellulitis of left lower limb; L97.529 Non-pressure chronic ulcer of other part of left foot with unspecified severity; I10 Essential (primary) hypertension; E78.5 Hyperlipidemia, unspecified; E78.00 Pure hypercholesterolemia, unspecified; B95.62 Methicillin resistant Staphylococcus aureus infection as the cause of diseases classified elsewhere; K57.90 Diverticulosis of intestine, part unspecified, without perforation or abscess without bleeding; K59.00 Constipation, unspecified; L84 Corns and callosities; E11.628 Type 2 diabetes mellitus with other skin complications; M20.42 Other hammer toe(s) (acquired), left foot; M19.90 Unspecified osteoarthritis, unspecified site; W45.0XXA Nail entering through skin, initial encounter; Z79.84 Long term (current) use of oral hypoglycemic drugs; Z83.3 Family history of diabetes mellitus; Z23 Encounter for immunization; W45.0XXD Nail entering through skin, subsequent encounter
CPT/HCPCS: 36410; 73660; 73720; 74018; 75635; 76937; 80048; 80053; 80202; 82565; 82948; 83036; 83735; 84100; 84439; 84443; 85025; 85652; 86403; 87015; 87040; 87070; 87077; 87102; 87116; 87147; 87186; 87205; 87206; 88305; 88311; 93005; 93306; 93880; 93923; A9579; J1650; J1815; J1885; J2250; J2270; J2405; J3010; J3370; J7040; J7050; J7512; Q0163; Q9967